=== PATIENT | male | born 1940 | race Caucasian/White ===

== ENCOUNTER → 2016-12-24 | Outpatient (CLI) | payer OTHER ==
[~2016-12-24] MED LIST: AMLO10TA2 PO; ASPI81TA28 PO; ATOR-22 PO; BUPRTAB51 PO; FLUO20CA35 PO; FLUO40CA8 PO; MULTTAB58 PO
--- NOTE | 2016-12-24 10:45 | DIAGNOSTIC IMAGING REPORT ---
CT LUNG SCREENING, LOW DOSE WITH COMPUTER-AIDED DETECTION (CAD) CLINICAL HISTORY: Smoking history. Lung cancer screening. COMPARISON STUDY: Chest CT dated 01/01/14. CT DOSE: 98.01 mGy.cm TECHNIQUE: Low-dose helical CT was acquired without intravenous contrast from lung apices to bases and reconstructed at 2.5 mm every 2 mm. CAD was utilized for this study. FINDINGS: Thyroid: Imaged portions of the thyroid gland are normal in appearance. Thoracic aorta: There is advanced atherosclerotic calcification of the thoracic aorta, which is normal in caliber and demonstrates standard 3 vessel arch anatomy. Heart: The heart is enlarged and without pericardial effusion. There are coronary artery calcifications. Lungs and pleural spaces: Evaluation of the lung parenchyma is degraded by respiratory motion artifact. Minimal secretions are present within the right mainstem bronchus. Emphysema is noted. No airspace consolidation or pleural effusion is identified. There is a 4 mm focus of pleural-based thickening in the right middle lobe along the minor fissure seen on axial image #199. This is unchanged from 2014 and of doubtful significance. No concerning pulmonary lesion is identified. Mediastinum: There is no mediastinal lymphadenopathy. Elli: Normal assessed without IV contrast. There are small calcification containing hilar nodes. Axilla: Clear. Upper abdomen: A small hiatal hernia is identified. There are small calcified hepatic and splenic granulomas. A 2.8 cm exophytic cyst is again seen arising from the right kidney. A 1.9 cm right adrenal adenoma is unchanged. Skeletal structures: The skeletal structures are osteopenic. There are no lytic or blastic osseous lesions. IMPRESSION: 1. Cardiomegaly and emphysema. 2. There is a 4 mm perifissural nodule in the right middle lobe. This is unchanged from 01/01/14 and is of doubtful significance. 3. No concerning pulmonary lesion is identified. 4. Additional changes as above. CAD FINDINGS: Nodule 1 Category: 2 Nodule 1 Status: Baseline Nodule 1 Description: Perifissural Nodule 1 Lesion ID: 1 Nodule 1 Slice Number: [id number] Nodule 1 Volume (mm3): 20 Nodule 1 Major [place] mm: 4.2 Nodule 1 Minor [place] mm: 2.0 Overall Lung RADS Category: 2 Lung RADS Management Recommendation: Lung-RADS 2: Continue annual screening in 12 months. Lung RADS Follow Up Date: 2017-12-24 Lung RADS Nodule ID: 1 Electronically signed by: Aldo Fenton M.D. 12/24/2016 10:44 AM Dictated Date/Time: 12/24/2016 10:27 AM
== END | disposition home or self-care (01) ==
LOC: C.CTS 09:53
PROVIDERS: ATTEND Internal Medicine
DX: F17.200 Nicotine dependence, unspecified, uncomplicated (principal); J43.9 Emphysema, unspecified; I51.7 Cardiomegaly

== ENCOUNTER → 2017-01-02 | Outpatient (CLI) | payer OTHER ==
[2017-01-02 12:21] LABS: BASO % 0.6 %; BASO ABS # 0.04 K/uL (0-0.2); EOS % 2.2 %; HEMATOCRIT 33.3 % (42-52); IG% 0.1 %; LYMPH % 20.6 %; LYMPH ABS # 1.39 K/uL (1.2-3.4); MEAN CELL VOLUME 66.1 fL (80-100); MEAN CORPUSCULAR HEMOGLOBIN 22.2 pg (25-34); MEAN CORPUSCULAR HGB CONC 33.6 g/dl (32-36); MEAN PLATELET VOLUME 9.5 fL (7.4-10.4); MONO % 9.3 %; NEUT % 67.2 %; PLATELET COUNT 314 K/uL (130-400); RED BLOOD COUNT 5.04 M/uL (4.7-6.1); WHITE BLOOD COUNT 6.75 K/uL (4.8-10.8)
[2017-01-02 12:42] LABS: CHOLESTEROL/HDL RATIO 2.5; FERRITIN 86.1 ng/ml (8.0-388.0)
[2017-01-02 12:45] LABS: COMPLETE YES
--- NOTE | 2017-01-07 10:18 | CODING QUERY MEDICAL NECESSITY ---
SUPPORTING DIAGNOSIS NEEDED A supporting diagnosis is required for the test/procedure performed on this patient in order for us to be reimbursed by the patient's insurance. Please provide a supporting diagnosis for the following test/procedure listed below next to the test name along with your signature. *If there is no additional diagnosis for this patient that would support the following test/procedure please document that below next to the test/procedure. Test(s)/Procedure(s) that require a supporting diagnosis: DOS 01/02 * Vitamin B12 DIAGNOSIS: * Folic Acid DIAGNOSIS: Provider Signature: Date: Thank you Laura Saleh Health Information Management Once completed, please kindly fax back to [phone] For questions please call [phone]
== END | disposition home or self-care (01) ==
LOC: C.LABBFT 08:47
PROVIDERS: ATTEND Internal Medicine
DX: R80.9 Proteinuria, unspecified (principal); D64.9 Anemia, unspecified; E78.5 Hyperlipidemia, unspecified

== ENCOUNTER → 2017-01-09 | Outpatient (CLI) | payer OTHER ==
[~2017-01-09] MED LIST changes: +OPTIRAY 320 IV PRN
[2017-01-09 15:40] LABS: BLOOD UREA NITROGEN 29 mg/dl (7-18); BUN/CREATININE RATIO 29.5 (10-20); CREATININE 0.98 mg/dl (0.60-1.40)
--- NOTE | 2017-01-09 15:59 | DIAGNOSTIC IMAGING REPORT ---
CT SCAN OF THE BRAIN COMBO CLINICAL HISTORY: Vertical strabismus. COMPARISON STUDY: CT of the brain dated 01/01/2014. TECHNIQUE: Axial CT scan of the brain is performed from the vertex to the skull base before and following the IV administration of 116 cc of Optiray 320. There is streak artifact from metallic coils in the suprasellar region. FINDINGS: Brain parenchyma: Coils are noted in the suprasellar region. Foci of right temporal and left occipital encephalomalacia are unchanged and consistent with remote insults. There is associated ex vacuo dilatation of the temporal horn of the right lateral ventricle. 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 There are age-related involutional changes noting mild subcortical and periventricular microangiopathic change. There is no hemorrhage, mass effect, or evidence of acute territorial ischemia by CT criteria. No enhancing mass lesion is identified on the postcontrast images. [place]-white matter is preserved. No extra-axial fluid collection is seen. Ventricles, sulci, cisterns: Prominent secondary to involutional change. Intracranial vasculature: There is atherosclerotic calcification of the cavernous carotid and vertebral arteries. Calvarium: There is evidence of previous right temporal craniectomy and right-sided craniotomy. No destructive calvarial lesion is seen. Sinuses and mastoids: The visualized paranasal sinuses are clear. The mastoid air cells are well pneumatized. Orbits: The bony orbits are grossly intact. There are bilateral ocular lens implants. IMPRESSION: 1. There is no hemorrhage, enhancing mass, or evidence of acute territorial ischemia by CT criteria. 2. Remote infarcts, senescent changes, and postoperative changes as above. These are similar to previous. Electronically signed by: Aldo Fenton M.D. 01/09/2017 3:58 PM Dictated Date/Time: 01/09/2017 3:52 PM
--- NOTE | 2017-01-09 16:01 | DIAGNOSTIC IMAGING REPORT ---
CT ORBITS/SELLA/TEMP COMBO CT DOSE: 1397.37 mGy.cm CLINICAL HISTORY: Vertical strabismus TECHNIQUE: Axial images through the orbits were obtained before and after administration of 116 cc of Optiray 320. COMPARISON STUDY: None. FINDINGS: Post craniotomy changes are visualized. 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 No orbital masses are visualized. The extraocular muscles appear symmetric. There are no pathologically enhancing lesions. IMPRESSION: 1. No orbital masses identified 2. Postsurgical changes of a right-sided craniotomy and aneurysm clipping. Electronically signed by: Joe Guajardo M.D. 01/09/2017 4:00 PM Dictated Date/Time: 01/09/2017 3:57 PM
== END | disposition home or self-care (01) ==
LOC: C.CTS 14:10
PROVIDERS: ATTEND Specialist
DX: H50.21 Vertical strabismus, right eye (principal); H53.2 Diplopia; Z98.890 Other specified postprocedural states

== ENCOUNTER → 2017-01-27 | Outpatient (CLI) | payer OTHER ==
[~2017-01-27] MED LIST changes: -OPTIRAY 320 IV PRN
[2017-01-27 09:32] LABS: HEMATOCRIT 32.8 % (42-52)
[2017-01-27 09:55] LABS: ESTIMATED AVERAGE GLUCOSE 126 mg/dl; HA1C FLAG Normal (Normal)
[2017-01-27 10:11] LABS: CALCULATED INSULIN SENSITIVITY 0.351; INSULIN LOG 0.8451
--- NOTE | 2017-01-31 11:16 | CODING QUERY MEDICAL NECESSITY ---
SUPPORTING DIAGNOSIS NEEDED Dr. Bhatti, A supporting diagnosis is required for the test/procedure performed on this patient in order for us to be reimbursed by the patient's insurance. Please provide a supporting diagnosis for the following test/procedure listed below next to the test name along with your signature. *If there is no additional diagnosis for this patient that would support the following test/procedure please document that below next to the test/procedure. Test(s)/Procedure(s) that require a supporting diagnosis: * 36940 GLYCATED HEMOGLOBIN DIAGNOSIS: DATE OF SERVICE: 01/27/17 Provider Signature: Date: Thank you Javier Slaughter [facility] Information Management Once completed, please kindly fax back to [phone] For questions please call [phone]
== END | disposition home or self-care (01) ==
LOC: C.LAB1850 08:23
PROVIDERS: ATTEND Internal Medicine Endocrinology, Diabetes & Metabolism
DX: I65.29 Occlusion and stenosis of unspecified carotid artery (principal); D64.9 Anemia, unspecified; E27.9 Disorder of adrenal gland, unspecified; M79.1 Myalgia; R73.03 Prediabetes

== ENCOUNTER → 2018-01-14 | Outpatient (CLI) | payer OTHER ==
[2018-01-14 12:33] LABS: BASO % 1.1 %; BASO ABS # 0.07 K/uL (0-0.2); EOS % 1.9 %; EOS ABS # 0.12 K/uL (0-0.5); HEMATOCRIT 34.4 % (42-52); HEMOGLOBIN 11.3 g/dL (14.0-18.0); IG# 0.02 K/uL (0.00-0.02); LYMPH % 19.8 %; LYMPH ABS # 1.28 K/uL (1.2-3.4); MEAN CELL VOLUME 65.6 fL (80-100); MEAN CORPUSCULAR HEMOGLOBIN 21.6 pg (25-34); MEAN CORPUSCULAR HGB CONC 32.8 g/dl (32-36); MEAN PLATELET VOLUME 8.9 fL (7.4-10.4); MONO % 7.1 %; MONO ABS # 0.46 K/uL (0.11-0.59); NEUT % 69.8 %; PLATELET COUNT 340 K/uL (130-400); RED CELL DISTRIBUTION WIDTH CV 15.1 % (11.5-14.5); RED CELL DISTRIBUTION WIDTH SD 35.5 fL (36.4-46.3); WHITE BLOOD COUNT 6.45 K/uL (4.8-10.8)
[2018-01-14 12:35] LABS: HEMOGLOBIN A1C 5.9 % (4.5-5.6)
[2018-01-14 12:47] LABS: ALBUMIN 3.9 gm/dl (3.4-5.0); ALT/SGPT 31 U/L (12-78); BLOOD UREA NITROGEN 21 mg/dl (7-18); CALCIUM 9.5 mg/dl (8.5-10.1); CARBON DIOXIDE 28 mmol/L (21-32); CHOLESTEROL 178 mg/dl (0-200); CREATININE 0.75 mg/dl (0.60-1.40); GLUCOSE 90 mg/dl (70-99); POTASSIUM 4.7 mmol/L (3.5-5.1); SODIUM 138 mmol/L (136-145)
[2018-01-14 12:52] LABS: ALKALINE PHOSPHATASE 47 U/L (45-117); AST/SGOT 24 U/L (15-37); LDL CHOLESTEROL CALCULATED 94 mg/dl; TOTAL PROTEIN 7.7 gm/dl (6.4-8.2)
== END | disposition home or self-care (01) ==
LOC: C.LABBFT 09:55
PROVIDERS: ATTEND Internal Medicine
DX: R73.03 Prediabetes (principal); D64.9 Anemia, unspecified; E78.5 Hyperlipidemia, unspecified; C61 Malignant neoplasm of prostate

== ENCOUNTER → 2018-01-20 | Outpatient (CLI) | payer OTHER ==
--- NOTE | 2018-01-20 11:29 | DIAGNOSTIC IMAGING REPORT ---
CT LUNG SCREENING, LOW DOSE WITH COMPUTER-AIDED DETECTION (CAD) CLINICAL HISTORY: 77 years-old Male with presents for a 1 year follow-up study to assess lung nodule. Patient currently smokes cigarettes with 40 pack-year history. COMPARISON STUDY: Low-dose lung screening 12/24/2016, CT chest 01/01/2014, CT abdomen and pelvis 01/01/2014 CT DOSE: 78.34 mGy.cm TECHNIQUE: Low-dose helical CT was acquired without intravenous contrast from lung apices to bases and reconstructed at 2.5 mm every 2 mm. CAD was utilized for this study. A dose lowering technique was utilized adhering to the principles of ALARA. FINDINGS: No dominant thyroid nodule identified. No definite pathologic adenopathy of the chest identified. Heart is mildly enlarged without pericardial effusion. Coronary arterial and aortic annular calcifications are noted. There is moderate atherosclerosis of the thoracic aorta. Mild tortuosity of the descending thoracic aorta without aneurysm identified. The unopacified pulmonary artery appears unremarkable. There is no pneumothorax or pleural effusion identified. Moderate upper lung zone predominant centrilobular emphysema. 4 mm perifissural lymph node adjacent to the right middle lobe is unchanged, image 165 series 4. No focal airspace consolidation or overt pulmonary edema. Central airways appear patent. 2.8 cm cystic lesion of the right upper abdomen adjacent to the interpolar right kidney suggests renal cyst, unchanged from comparison. No acute abnormality of the imaged upper abdomen identified. Thickening of the bilateral adrenal glands appear unchanged with a stable appearing 1.9 cm low attenuating right adrenal gland lesion suggesting adenoma. Soft tissues are unremarkable. Bones appear intact. No suspicious lytic or blastic bony lesions. IMPRESSION: 1. No acute intrathoracic abnormality identified. 2. No suspicious pulmonary nodules or masses identified. Unchanged 4 mm benign appearing perifissural lymph node node adjacent to the right middle lobe. 3. Emphysema. 4. Additional findings as above. CAD FINDINGS: Overall Lung RADS Category: 2 Lung RADS Management Recommendation: Continue annual lung cancer screening. Lung RADS Follow Up Date: 2019-01-20 Lung RADS Nodule ID: 1 The above report was generated using voice recognition software. It may contain grammatical, syntax or spelling errors. Electronically signed by: Figueroa Valdovinos M.D. 01/20/2018 11:28 AM Dictated Date/Time: 01/20/2018 10:23 AM
== END | disposition home or self-care (01) ==
LOC: C.CTS 09:50
PROVIDERS: ATTEND Internal Medicine
DX: Z87.891 Personal history of nicotine dependence (principal)

== ENCOUNTER 2022-02-20 08:39 | Inpatient (IN) ==
[2022-02-20] MEDS ORDERED: PANTOprazole 80 MG in DEXTROSE 5% 100 ML IV ONE (09:07)
[2022-02-20] MEDS ORDERED: SODIUM CHLORIDE 0.9% 250 ML IV PRN (09:10)
[2022-02-20 09:41] LABS: Hematocrit (blood only) 21.8 % (42-52); Hemoglobin 6.8 g/dL (14.0-18.0); Mean Corpuscular Hemoglobin 21.7 pg (25-34); Mean Corpuscular Hgb Conc 31.2 g/dL (32-36); Mean Corpuscular Volume 69.6 fL (80-100); Mean Platelet Volume 8.4 fL (7.4-10.4); Nucleated RBC # (auto) 0.02 K/uL (0-0); Nucleated RBC % (auto) 0.2 %; Platelet Count 434 K/uL (130-400); RDW Standard Deviation 55.2 fL (36.4-46.3); Red Blood Count 3.13 M/uL (4.7-6.1); White Blood Count 8.41 K/uL (4.8-10.8)
[2022-02-20 10:01] LABS: Anisocytosis Present; Basophils # (auto) 0.07 K/uL (0-0.2); Basophils % (auto) 0.8 %; Eosinophils # (auto) 0.26 K/uL (0-0.5); Eosinophils % (auto) 3.1 %; Hypochromasia Present; Immature Granulocytes # (auto) 0.02 K/uL (0.00-0.02); Immature Granulocytes % (auto) 0.2 %; Lymphocytes # (auto) 1.52 K/uL (1.2-3.4); Lymphocytes % (auto) 18.1 %; Microcytosis Present; Monocytes # (auto) 0.87 K/uL (0.11-0.59); Monocytes % (auto) 10.3 %; Neutrophils # (auto) 5.67 K/uL (1.4-6.5); Neutrophils % (auto) 67.5 %; Poikilocytosis Present; Target Cells 1+
[2022-02-20 10:02] LABS: Albumin Level 2.9 gm/dl (3.4-5.0); BUN Creatinine Ratio 51.5 (10-20); Bilirubin,Total 0.3 mg/dl (0.2-1.0); Calcium 8.2 mg/dl (8.5-10.1); Creatinine Clr Calc Pharmacy 68.7 ml/min; Est GFR (African American) 105.8 ml/min; Est GFR (Non-African American) 91.3 ml/min; Potassium 3.9 mmol/L (3.5-5.1); Total Protein 5.9 gm/dl (6.0-8.3)
[2022-02-20] MEDS ORDERED: OPTIRAY 320 100ml IV ONE (10:42)
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
[2022-02-20] MEDS ORDERED: PROPOFOL IV EMULSION 10 MG/ML 20 ML VIAL IV ONE (14:56)
[2022-02-20] MEDS ORDERED: LIDOCAINE 2% 2 ML VIAL/AMP(20MG/ML) INFIL ONE (14:56)
[2022-02-20] MEDS ORDERED: PANTOprazole 40 MG in DEXTROSE 5% 100 ML IV SCH (15:00)
--- NOTE | 2022-02-20 15:09 | Anesthesiology Consultation ---
Date of Service February 20, 2022 Assessment & Plan (1) Encounter for pre-operative examination: Chart Review Chart Review: Acceptable Risk for Surgery History Surgery Operation Date: 02/20/22 16:30 Proposed Procedures p Esophagogastroduodenoscopy Dr. Oneill - Collin Oneill MD Height/Weight Height: 5 ft 4 in Weight: 54.4 kg Allergies Allergy/AdvReac Type Severity Reaction Status Date / Time No Known Allergies Allergy Verified 01/27/22 20:24 Medications Home Medications Medication Instructions Recorded Confirmed Last Taken fluoxetine 20 mg capsule 20 mg PO QAM #90 cap 06/30/19 02/20/22 09/16/21 fluoxetine 40 mg capsule 40 mg PO QAM #90 cap 06/30/19 02/20/22 09/16/21 cholecalciferol (vitamin D3) 25 25 mcg PO QAM 11/21/20 02/20/22 09/16/21 mcg (1,000 unit) capsule atorvastatin 80 mg tablet 80 mg PO QPM #90 tab 11/29/20 02/20/22 09/17/21 aspirin 81 mg tablet,delayed 81 mg PO QAM 05/31/21 02/20/22 09/17/21 04:00 release (Adult Aspirin Regimen) amlodipine 10 mg tablet 10 mg PO QAM 09/11/21 02/20/22 09/17/21 donepezil 10 mg tablet 10 mg PO HS 01/27/22 02/20/22 Unknown Saccharomyces boulardii 250 mg 250 mg PO BID 02/20/22 02/20/22 Unknown capsule acetaminophen 500 mg tablet 1,000 mg PO Q8 02/20/22 02/20/22 Unknown apixaban 5 mg tablet 5 mg PO Q12H 02/20/22 02/20/22 Unknown bisacodyl 10 mg rectal suppository 10 mg FL DAILY 02/20/22 02/20/22 Unknown cyanocobalamin (vitamin B-12) 1,000 mcg PO DAILY 02/20/22 02/20/22 Unknown 1,000 mcg tablet docusate sodium 100 mg capsule 100 mg PO BID 02/20/22 02/20/22 Unknown losartan 50 mg tablet 50 mg PO QAM 02/20/22 02/20/22 Unknown melatonin 3 mg tablet 6 mg PO HS 02/20/22 02/20/22 Unknown multivitamin with folic acid 400 tab PO DAILY 02/20/22 Unknown mcg tablet pantoprazole 40 mg tablet,delayed 40 mg PO QAM 02/20/22 02/20/22 Unknown release quetiapine 25 mg tablet 25 mg PO HS 02/20/22 02/20/22 Unknown sennosides 8.6 mg tablet (senna) 17.2 mg PO BID PRN 02/20/22 02/20/22 Unknown sennosides 8.6 mg-docusate sodium See Rx Instructions .ROUTE .COMPLEX 02/20/22 02/20/22 Unknown 50 mg tablet (Senna-S) Past Medical History Medical History (Updated 02/20/22 @ 15:09 by Javier Leonardo MD) Anemia Anxiety and depression Brain aneurysm hx COPD (chronic obstructive pulmonary disease) Current smoker Diverticulosis GERD (gastroesophageal reflux disease) occ OTC antacid History of prostate cancer 2006 -- treated surgically Hyperlipidemia Hypertension Internal hemorrhoids Lung nodule per - pcp was monitoring, no changes, benign and no longer monitoring Multiple fractures of ribs of left side PAD (peripheral artery disease) follows with Dr. Matute Pelvic fracture PFO (patent foramen ovale) ?? 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 Prediabetes Thalassemia trait, alpha Vitamin B12 deficiency Past Family History Family History Mother Stroke Father Stroke Unknown Prostate cancer Brother Prostate cancer Other No family history of adverse response to anesthesia Denies family history of Ovarian cancer Breast cancer Colorectal cancer Past Surgical History Surgical History H/O cerebral aneurysm repair History of cataract surgery History of colonoscopy History of inguinal hernia repair History of prostate biopsy History of prostatectomy History of right-sided carotid endarterectomy Social History Smoking Status: Former smoker tobacco type: cigarettes Smoking cigarettes per day: LESS THAN 10 Do You Dip or Chew Tobacco: No Hx Alcohol Use: No Alcohol type: hard liquor alcohol intake frequency: 0-2 drinks per day Hx Substance Use: No substance use type: does not use Physical Exam Vital Signs Last Vital Signs Temp 37 C 02/20/22 14:40 Pulse 66 02/20/22 14:44 Resp 16 02/20/22 14:40 BP 181/66 H 02/20/22 14:40 Pulse Ox 96 02/20/22 14:40 Testing Laboratory Results 02/20/22 09:17 02/20/22 09:17 Blood Type A Positive 02/20/22 09:17 Antibody Screen NEGATIVE 02/20/22 09:17 Electrocardiogram Date: 02/20/22 Findings: + NSR @ (73 (PAC's))
--- NOTE | 2022-02-20 16:26 | GI REPORT ---
Patient Name: Ángela Sales Procedure Date: 02/20/2022 3:08 PM Date of : 1940 Admit Type: Inpatient Age: 81 Gender: Male Attending MD: Collin Oneill MD Procedure: Small bowel enteroscopy Providers: Collin Oneill MD Referring MD: Jeramie Egan, Nino Palm Md Indications: Iron deficiency anemia secondary to chronic blood loss Medicines: Monitored Anesthesia Care Complications: No immediate complications. Estimated blood loss: None. Estimated Blood Loss: Estimated blood loss: none. Procedure: Pre-Anesthesia Assessment: - Prior Anticoagulants: The patient has taken Eliquis (apixaban), last dose was 1 day prior to procedure. The scope was introduced through the mouth, and advanced to the fourth part of duodenum. The upper GI endoscopy was accomplished without difficulty. The patient tolerated the procedure well. Findings: The examined esophagus was normal. The entire examined stomach was normal. The duodenal bulb, second portion of the duodenum, third portion of the duodenum and fourth portion of the duodenum were normal. Impression: - Normal esophagus. - Normal stomach. - Normal duodenal bulb, second portion of the duodenum, third portion of the duodenum and fourth portion of the duodenum. - No specimens collected. Recommendation: - [facility]. - Advance diet as tolerated today. -can d/c protonix drip -trend H/H, transfuse prn, supportive care -if develops signs of overt GI bleeding (hematochezia, hematemesis, melena), may consider further endoscopic evaluation. Collin Oneill MD 02/20/2022 4:25:55 PM This report has been signed electronically. Note Initiated On: 02/20/2022 3:08 PM Number of Addenda: 0 I attest to the content of the Intraoperative Record and orders documented therein, exceptions below {[id number]}
--- NOTE | 2022-02-20 16:34 | Anesthesiology Progress Note ---
Date of Service February 20, 2022 Anesthesia Post Procedure Vital Signs Vital Signs: Temp Pulse Pulse Resp BP BP Pulse Ox 02/20/22 16:23 60 16 124/53 L 100 02/20/22 15:01 36.4 C L 68 18 162/72 H 96 02/20/22 14:44 66 02/20/22 14:40 37 C 74 16 181/66 H 96 02/20/22 14:00 36.7 C 73 21 145/61 H 96 02/20/22 13:15 72 23 147/77 H 97 02/20/22 13:00 36.7 C 68 21 148/67 H 97 02/20/22 12:45 69 22 142/61 H 96 02/20/22 12:30 36.7 C 72 23 134/57 L 96 02/20/22 12:29 67 24 139/57 L 96 02/20/22 12:15 36.6 C 71 21 142/68 H 96 02/20/22 12:14 71 22 142/66 H 97 02/20/22 12:00 78 24 96 02/20/22 11:59 77 22 137/77 94 02/20/22 11:58 36.6 C 69 16 137/77 96 02/20/22 11:00 66 19 96 02/20/22 10:45 73 21 96 02/20/22 10:30 69 20 02/20/22 10:20 66 21 02/20/22 10:10 66 18 02/20/22 10:00 65 20 02/20/22 09:50 66 19 02/20/22 09:40 69 23 02/20/22 09:30 68 21 02/20/22 09:20 73 24 02/20/22 09:10 63 21 02/20/22 09:00 64 22 02/20/22 08:53 37.0 C 68 12 133/60 97 02/20/22 08:51 66 20 99 Transfer of Care Handoff Completed per policy Notes Mental Status: alert / awake / arousable Patient Amnestic to Procedure: Yes Nausea / Vomiting: adequately controlled Pain: adequately controlled Airway Patency, RR, SpO2: stable & adequate BP & HR: stable & adequate Hydration State: stable & adequate Anesthetic Complications: no major complications apparent
[2022-02-20 17:37] LABS: Basophils # (auto) 0.05 K/uL (0-0.2); Basophils % (auto) 0.6 %; Eosinophils # (auto) 0.19 K/uL (0-0.5); Eosinophils % (auto) 2.4 %; Hematocrit (blood only) 26.2 % (42-52); Hemoglobin 8.2 g/dL (14.0-18.0); Immature Granulocytes # (auto) 0.01 K/uL (0.00-0.02); Immature Granulocytes % (auto) 0.1 %; Lymphocytes # (auto) 1.36 K/uL (1.2-3.4); Lymphocytes % (auto) 17.2 %; Mean Corpuscular Hemoglobin 22.8 pg (25-34); Mean Corpuscular Hgb Conc 31.3 g/dL (32-36); Mean Platelet Volume 8.7 fL (7.4-10.4); Monocytes # (auto) 0.77 K/uL (0.11-0.59); Monocytes % (auto) 9.7 %; Neutrophils # (auto) 5.53 K/uL (1.4-6.5); Platelet Count 452 K/uL (130-400); RDW Coefficient of Variation 22.9 % (11.5-14.5); RDW Standard Deviation 60.4 fL (36.4-46.3); Red Blood Count 3.59 M/uL (4.7-6.1); White Blood Count 7.91 K/uL (4.8-10.8)
[2022-02-20 18:18] LABS: Anisocytosis Present; Hypochromasia Present; Poikilocytosis Present; Polychromasia 1+
[2022-02-20] MEDS: DONEPEZIL HCL 10 MG TAB PO SCH (20:12)
[2022-02-20] MEDS: ATORVASTATIN 40 MG TAB PO SCH (20:13)
[2022-02-20] MEDS: traZODone HCL 50 MG TAB PO PRN (22:28)
[2022-02-20] MEDS: ACETAMINOPHEN 325 MG TAB PO PRN (22:28)
[2022-02-21 01:11] LABS: Hematocrit (blood only) 25.8 % (42-52); Hemoglobin 8.2 g/dL (14.0-18.0)
--- NOTE | 2022-02-21 06:14 | Communication Note ---
Date of Service: February 21, 2022 notified of 6 beat run vtach. asymptomatic. adding mag to am labs
--- NOTE | 2022-02-21 06:26 | Electrocardiogram Report ---
Test Reason : Blood Pressure : / mmHG Vent. Rate : 073 BPM Atrial Rate : 073 BPM P-R Int : 166 ms QRS Dur : 094 ms QT Int : 428 ms P-R-T Axes : 074 054 070 degrees QTc Int : 471 ms Sinus rhythm with Premature atrial complexes Otherwise normal ECG When compared with ECG of 27-JAN-2022 19:56, Premature atrial complexes are now Present Confirmed by Kaden Ibarra ([id number]) on 02/21/2022 6:26:13 AM Referred By: [facility] Confirmed By:Kaden Ibarra
--- NOTE | 2022-02-21 06:39 | Ultrasound Report ---
LEFT LOWER EXTREMITY VENOUS DOPPLER HISTORY: Acute pain and swelling of the left lower extremity hx L isolated tibial vein thrombosis COMPARISON STUDY: None. FINDINGS: Occlusive thrombus is noted within one of the duplicated posterior tibial and peroneal vein s, likely acute. There is otherwise normal compressibility, flow, and augmentation within the left lo wer extremity deep venous structures. IMPRESSION: Left lower extremity DVT. ACT 112: Negative or not required by law. Electronically signed by: Lion Valdovinos M.D. 02/21/2022 6:37 AM
[2022-02-21 06:41] LABS: Basophils # (auto) 0.04 K/uL (0-0.2); Basophils % (auto) 0.6 %; Eosinophils # (auto) 0.24 K/uL (0-0.5); Eosinophils % (auto) 3.4 %; Hematocrit (blood only) 25.8 % (42-52); Hemoglobin 8.1 g/dL (14.0-18.0); Immature Granulocytes # (auto) 0.02 K/uL (0.00-0.02); Immature Granulocytes % (auto) 0.3 %; Lymphocytes # (auto) 1.69 K/uL (1.2-3.4); Lymphocytes % (auto) 23.9 %; Mean Corpuscular Hemoglobin 22.5 pg (25-34); Mean Corpuscular Hgb Conc 31.4 g/dL (32-36); Mean Corpuscular Volume 71.7 fL (80-100); Mean Platelet Volume 8.5 fL (7.4-10.4); Monocytes # (auto) 0.65 K/uL (0.11-0.59); Monocytes % (auto) 9.2 %; Neutrophils # (auto) 4.43 K/uL (1.4-6.5); Neutrophils % (auto) 62.6 %; Platelet Count 426 K/uL (130-400); RDW Coefficient of Variation 22.5 % (11.5-14.5); RDW Standard Deviation 59.4 fL (36.4-46.3); White Blood Count 7.07 K/uL (4.8-10.8)
[2022-02-21 07:02] LABS: Albumin Level 2.9 gm/dl (3.4-5.0); BUN Creatinine Ratio 36.5 (10-20); Bilirubin,Total 0.4 mg/dl (0.2-1.0); Calcium 8.6 mg/dl (8.5-10.1); Creatinine Clr Calc Pharmacy 71.4 ml/min; Est GFR (African American) 107.9 ml/min; Est GFR (Non-African American) 93.1 ml/min; Magnesium 1.9 mg/dl (1.7-2.4); Potassium 3.8 mmol/L (3.5-5.1); Total Protein 5.9 gm/dl (6.0-8.3)
[2022-02-21 07:04] LABS: Anisocytosis Present; Hypochromasia Present; Microcytosis Present; Poikilocytosis Present; Target Cells 1+
[2022-02-21] MEDS: amLODIPine BESYLATE 5 MG TAB PO SCH (08:58)
[2022-02-21] MEDS: CYANOCOBALAMIN (B-12) 500 MCG TABLET PO SCH (08:58)
[2022-02-21] MEDS: FLUoxetine HCL 20 MG CAP PO SCH (08:58)
[2022-02-21] MEDS: CHOLECALCIFEROL 1,000 UNITS 25 MCG TAB PO SCH (08:58)
[2022-02-21] MEDS ORDERED: FLUoxetine HCL 20 MG CAP PO SCH (09:00)
--- NOTE | 2022-02-21 10:27 | Gastroenterology Progress Note ---
Date of Service February 21, 2022 Assessment & Plan (1) Anemia: Plan: -Continue to monitor H/H and for further signs of GI bleeding. -Can maintain home dose of Pantoprazole 40 mg daily. Admission and Anticipated Discharge Date Admission Date: February 20, 2022 Supervising Physician Co-Signing Physician Notes I personally evaluated the patient and agree with the findings as documented by Beth Clark, CLARISA Exam: Constitutional: WD/WN, vitals as above General: EOM intact bilaterally Neck: normal visual inspection Respiratory: normal respiratory effort, lungs clear to auscultation Cardiovascular: RRR, no murmur, no edema Gastrointestinal: abdomennormal to inspection, nondistended, soft, nontender, no hepatosplenomegaly Musculoskeletal: no cyanosis, head normal to inspection Skin: no rashes, warm and dry Neurologic: moves all extremities Psychiatric: A and O x3, euthymic affect Hgb is stable, can advance diet as tolerated. if develops signs of overt Gi bleeding please notify GI team. Subjective Patient is an 81 yo male with anemia. He underwent a EGD/small bowel enteroscopy on 02/20/22 that was unremarkable. H/H today is 8.1/25.8. No overt GI bleeding. Last colonoscopy 09/17/21 without significant abnormalities. Patient denies complaints, but is partially asleep during my evaluation. Review of Systems Gastrointestinal: no blood in stools and no melena Physical Exam Constitutional: well developed Respiratory: normal respiratory effort Gastrointestinal (Abdomen): Inspection/Auscultation: abdomen normal to inspection Percussion/Palpation: abdomen soft; abdomen nontender Results & Data Results & Data ([facility]) Vital Signs (Past 12 Hours) Vital Signs Temp Pulse Pulse Resp BP Pulse Ox 02/21/22 09:37 66 02/21/22 07:46 36.8 C 70 18 150/66 H 96 02/21/22 03:50 37.1 C 74 16 129/57 L 96 02/20/22 23:14 71 02/20/22 22:45 37.7 C H 75 20 156/67 H 96 PG Care Time/CCT Total # of Minutes Spent Total Time Spent with Patient: Total time spent is greater than 50% in coordination of care (as documented) at patient's floor/unit and/or counseling patient: Coding Level of Care Code 24753 Subseq Hosp Care Lvl 2 Diagnoses Anemia D64.9
[2022-02-21] MEDS: PANTOprazole 40 MG TAB PO SCH (11:54)
[2022-02-21] MEDS ORDERED: Heparin IV Adult Wt-Based Low-Dose *NO* Bolus Protocol IV SCH (12:00)
[2022-02-21] MEDS ORDERED: HEPARIN SODIUM/DEXTROSE 25,000 UNITS/500 ML BAG IV SCH (12:15)
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
[2022-02-21 13:30] LABS: INR 1.3 (0.9-1.1); Partial Thromboplastin Ratio 0.8; Partial Thromboplastin Time 22.5 Seconds (21.0-31.0); Prothrombin Time 13.8 Seconds (9.0-12.0)
[2022-02-21] MEDS: ACETAMINOPHEN 325 MG TAB PO PRN (20:04)
[2022-02-21] MEDS: DONEPEZIL HCL 10 MG TAB PO SCH (20:04)
[2022-02-21] MEDS: ATORVASTATIN 40 MG TAB PO SCH (20:04)
[2022-02-21 20:54] LABS: Hemoglobin 8.6 g/dL (14.0-18.0)
[2022-02-21 21:11] LABS: Partial Thromboplastin Time 28.3 Seconds (21.0-31.0)
[2022-02-21] MEDS ORDERED: HEPARIN SOD (PORCINE) 1000 UNIT/ML IV ONE (21:31)
[2022-02-21] MEDS: traZODone HCL 50 MG TAB PO PRN (21:47)
[2022-02-22 04:00] LABS: Basophils # (auto) 0.04 K/uL (0-0.2); Basophils % (auto) 0.6 %; Eosinophils # (auto) 0.28 K/uL (0-0.5); Eosinophils % (auto) 4.1 %; Hematocrit (blood only) 27.2 % (42-52); Hemoglobin 8.6 g/dL (14.0-18.0); Immature Granulocytes # (auto) 0.02 K/uL (0.00-0.02); Immature Granulocytes % (auto) 0.3 %; Lymphocytes # (auto) 1.69 K/uL (1.2-3.4); Mean Corpuscular Hemoglobin 22.8 pg (25-34); Mean Corpuscular Hgb Conc 31.6 g/dL (32-36); Mean Corpuscular Volume 72.1 fL (80-100); Mean Platelet Volume 8.3 fL (7.4-10.4); Monocytes # (auto) 0.67 K/uL (0.11-0.59); Monocytes % (auto) 9.9 %; Neutrophils # (auto) 4.07 K/uL (1.4-6.5); Neutrophils % (auto) 60.1 %; Nucleated RBC # (auto) 0.02 K/uL (0-0); Nucleated RBC % (auto) 0.3 %; Platelet Count 397 K/uL (130-400); RDW Coefficient of Variation 23.1 % (11.5-14.5); RDW Standard Deviation 60.3 fL (36.4-46.3); Red Blood Count 3.77 M/uL (4.7-6.1); White Blood Count 6.77 K/uL (4.8-10.8)
[2022-02-22 04:23] LABS: Anisocytosis Present; Hypochromasia Present; Poikilocytosis Present; Polychromasia 1+; Target Cells 1+
[2022-02-22 04:26] LABS: Partial Thromboplastin Ratio 2.2
[2022-02-22 04:29] LABS: BUN Creatinine Ratio 35.7 (10-20); Calcium 8.5 mg/dl (8.5-10.1); Creatinine Clr Calc Pharmacy 64.3 ml/min; Est GFR (African American) 103.3 ml/min; Est GFR (Non-African American) 89.1 ml/min
[2022-02-22 04:34] LABS: Partial Thromboplastin Time 59.5 Seconds (21.0-31.0)
[2022-02-22] MEDS: CHOLECALCIFEROL 1,000 UNITS 25 MCG TAB PO SCH (07:51)
[2022-02-22] MEDS: FLUoxetine HCL 20 MG CAP PO SCH (07:51)
[2022-02-22] MEDS: PANTOprazole 40 MG TAB PO SCH (07:51)
[2022-02-22] MEDS: CYANOCOBALAMIN (B-12) 500 MCG TABLET PO SCH (07:52)
[2022-02-22] MEDS: amLODIPine BESYLATE 5 MG TAB PO SCH (09:28)
--- NOTE | 2022-02-22 09:28 | Communication Note ---
Date of Service: February 22, 2022 Of note, CT scan shows concern for chronic dilatation of pancreatic duct. Per radiology, while this may be related to chronic pancreatitis, he should consider further GI evaluation. Our office will arrange for EUS to be performed as an outpatient with [facility] once patient is medical stable. As for H/H, it's noted to be 8.6/27.2 today. Stools on 02/21/22 did not indicate and overt signs of bleeding. If patient develops obvious GI bleeding, please re- consult GI.
[2022-02-22 09:33] LABS: Hematocrit (blood only) 28.4 % (42-52); Hemoglobin 8.7 g/dL (14.0-18.0)
[2022-02-22] MEDS: ENOXAPARIN 80 MG/0.8 ML SYR SQ SCH (12:20)
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
[2022-02-22 20:57] LABS: Hematocrit (blood only) 27.9 % (42-52); Hemoglobin 8.7 g/dL (14.0-18.0)
[2022-02-22] MEDS: DONEPEZIL HCL 10 MG TAB PO SCH (21:35)
[2022-02-22] MEDS: ATORVASTATIN 40 MG TAB PO SCH (21:36)
[2022-02-22] MEDS: traZODone HCL 50 MG TAB PO PRN (22:40)
[2022-02-23 06:34] LABS: Partial Thromboplastin Ratio 0.9; Partial Thromboplastin Time 23.4 Seconds (21.0-31.0)
[2022-02-23] MEDS: FLUoxetine HCL 20 MG CAP PO SCH (07:30)
[2022-02-23] MEDS: PANTOprazole 40 MG TAB PO SCH (07:31)
[2022-02-23] MEDS: CHOLECALCIFEROL 1,000 UNITS 25 MCG TAB PO SCH (07:31)
[2022-02-23] MEDS: CYANOCOBALAMIN (B-12) 500 MCG TABLET PO SCH (07:31)
[2022-02-23] MEDS: amLODIPine BESYLATE 5 MG TAB PO SCH (07:31)
[2022-02-23] MEDS: ENOXAPARIN 80 MG/0.8 ML SYR SQ SCH (10:24)
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
== END 2022-02-23 13:50 | disposition home health service (06) | DRG 378 ==
LOC: ED 08:39 → SUATTDRO 13:08 → 2N 13:08

== ENCOUNTER 2024-05-03 12:48 | Inpatient (IN) ==
--- NOTE | 2024-05-03 13:01 | ED Triage Note ---
Date of Service May 03, 2024 Provider in Triage Author: Surekha Acharya History of Present Illness This patient was briefly evaluated while in triage. An abbreviated physical exam was performed. This patient is a 83-year-old Male who presents to the ED for evaluation approximately 2.5 hours after a fall. Pt. states he slipped and fell. He did not strike his head. Landed on the right hip. Pt. unable to bare weight. Does have history of bilateral pelvic fracture several years ago and was seen here. Physical Exam VITALS: Vitals are noted on the nurse's note and reviewed by myself. GENERAL: This is an 83 year old male, in no acute distress, nondiaphoretic, well-developed well-nourished. SKIN: No obvious rashes, edema, erythema HEAD: Normocephalic atraumatic. EYES: Conjunctivae without injection, sclerae without icterus. NECK: No JVD. LUNGS: No retractions or accessory muscle use. MUSCULOSKELETAL: Presents in a wheelchair. NEURO: Patient was alert and oriented to person place and time. No focal neurological deficits. Initial orders for labs and / or imaging were placed and patient was placed in the waiting area until a bed is available. Please see further documentation for the full ED course.
[2024-05-03] MEDS: ACETAMINOPHEN 325 MG TAB ONE (13:27)
[2024-05-03] MEDS: ONDANSETRON INJ 2 MG/ML 2 ML VIAL IV STA (13:33)
[2024-05-03] MEDS: MoRPHine SULFATE 4 MG/ML 1 ML CARP\\VIAL IV STA ×2 (13:35→21:48)
[2024-05-03 14:05] LABS: Basophils # (auto) 0.04 K/uL (0.00-0.20); Basophils % (auto) 0.4 %; Eosinophils # (auto) 0.08 K/uL (0.00-0.50); Eosinophils % (auto) 0.8 %; Hematocrit (blood only) 29.3 % (42.0-52.0); Hemoglobin 8.9 g/dl (14.0-18.0); Immature Granulocytes # (auto) 0.07 K/uL (0.01-0.20); Immature Granulocytes % (auto) 0.7 %; Lymphocytes # (auto) 0.73 K/uL (1.20-3.40); Lymphocytes % (auto) 6.9 %; Mean Corpuscular Hemoglobin 17.9 pg (25.0-34.0); Mean Corpuscular Hgb Conc 30.4 g/dL (32.0-36.0); Monocytes # (auto) 0.74 K/uL (0.11-0.59); Neutrophils # (auto) 8.94 K/uL (1.40-6.50); Neutrophils % (auto) 84.2 %; RDW Coefficient of Variation 18.5 % (11.5-14.5); RDW Standard Deviation 37.2 fL (36.4-46.3); Red Blood Count 4.97 M/uL (4.70-6.10)
[2024-05-03 14:07] LABS: Albumin Globulin Ratio 1.1 (0.9-2); Albumin Level 3.9 gm/dl (3.4-5.0); BUN Creatinine Ratio 28.7 (10-20); Bilirubin,Total 0.5 mg/dl (0.2-1.0); Calcium 9.4 mg/dl (8.6-10.3); Creatinine Clr Calc Pharmacy 48.8 ml/min; Est GFR (African American) 87.2 ml/min; Est GFR (Non-African American) 75.2 ml/min; Globulin 3.4 gm/dl (2.5-4.0); Potassium 3.8 mmol/L (3.5-5.1); Total Protein 7.3 gm/dl (6.0-8.3)
--- NOTE | 2024-05-03 14:11 | XRay Report ---
XR hip RT 2V w pelvis CLINICAL HISTORY: pain, fall COMPARISON: CT of the abdomen and pelvis February 20, 2022. FINDINGS: There is an acute displaced subcapital right femoral neck fracture. Fracture is displaced 2 cm. No additional fractures within the pelvis or hips are present. There are surgical clips within the pelvis. Proximal left femur is intact. IMPRESSION: Acute displaced subcapital right femoral neck fracture. ACT 112: Negative or not required by law. Electronically signed by: Remberto Alfonso M.D. 05/03/2024 2:10 PM
[2024-05-03 14:28] LABS: Microcytosis Present; Platelet Count 379 K/uL (130-400); Poikilocytosis Present; Polychromasia 1+; Target Cells 1+
[2024-05-03 14:33] LABS: INR 1.3 (0.9-1.1); Partial Thromboplastin Ratio 0.8; Partial Thromboplastin Time 22 Seconds (21-31); Prothrombin Time 13.8 Seconds (9.0-12.0)
--- NOTE | 2024-05-03 14:33 | Emergency Department Note ---
History of Present Illness General Chief complaint: Fall Stated complaint: FALL, HIP PAIN ON RIGHT SIDE Time Seen by Provider: 05/03/24 14:11 History of Present Illness Maximum Pain Intensity: 10 This is an 83-year-old male that presents to the emergency department via private vehicle with complaints of "right hip plain". He is here today accompanied by daughter as well as . History obtained from patient, and daughter at bedside. Patient notes earlier today around 10:30 AM he slipped and fell injuring the right hip. Daughter at bedside notes that this was a mechanical fall. No other areas of pain beyond the right hip. He did not strike the head or lose consciousness. No headache. No chest pain or shortness of breath. No abdominal pain. No back pain. No preceding illness. No fevers. He cannot bear weight to the right leg secondary to right hip pain. Current pain 08/19. Injury occurred around 10:30 AM. No anticoagulant use. He felt fine prior to the fall. He does have a history of previous pelvic fracture. Home Medications Medication Instructions Recorded Confirmed Type fluoxetine 20 mg capsule 20 mg PO QAM #90 caps 06/30/19 05/03/24 History fluoxetine 40 mg capsule 40 mg PO QAM #90 caps 06/30/19 05/03/24 History aspirin 81 mg tablet,delayed 81 mg PO QAM 05/31/21 05/03/24 History release (Adult Aspirin Regimen) donepezil 10 mg tablet 10 mg PO HS 01/27/22 05/03/24 History bupropion HCl 300 mg 24 hr tablet, 300 mg PO QAM #30 tabs 06/14/22 05/03/24 Rx extended release cholecalciferol (vitamin D3) 25 25 mcg PO DAILY 05/21/23 05/03/24 History mcg (1,000 unit) capsule valsartan 80 mg tablet 80 mg PO BID #180 tabs 09/18/23 05/03/24 Rx amlodipine 10 mg tablet 10 mg PO QAM #90 tabs 01/07/24 05/03/24 Rx atorvastatin 80 mg tablet 80 mg PO QPM #90 tabs 03/01/24 05/03/24 Rx mecobalamin (vitamin B12) 500 mcg 500 mcg PO UD 03/26/24 05/03/24 History chewable tablet pantoprazole 40 mg tablet,delayed 40 mg PO DAILY 05/03/24 05/03/24 History release Allergies Allergy/AdvReac Type Severity Reaction Status Date / Time No Known Allergies Allergy Verified 03/26/24 16:43 Past Med/Surg History Problem List (Updated 05/03/24 @ 23:04 by Parag Quiros PA-C) Closed fracture of right hip (Acute) Closed right hip fracture Adrenal nodule (Acute) Anemia (Acute) Carotid artery stenosis (Acute) Depression (Acute) Gastroesophageal reflux disease (Acute) Hyperlipidemia (Acute) Hypertension (Acute) Lung nodule (Acute) Prediabetes (Acute) Prostate cancer (Acute ~02/2023) Thalassemia trait, alpha (Acute) Vitamin B12 deficiency (Acute) Peripheral arterial disease Multiple fractures of ribs of left side (Acute) Tubular adenoma Encounter for pre-operative examination History of colon polyps COPD (chronic obstructive pulmonary disease) Gastric erosions UGIB (upper gastrointestinal bleed) (Acute) Chronic anticoagulation (Acute) ABLA (acute blood loss anemia) (Acute) Vitamin D deficiency Abnormality of pancreatic duct Medical History DVT (deep venous thrombosis) Pelvic fracture Acute GI bleeding Current smoker PAD (peripheral artery disease) follows with Dr. Matute PFO (patent foramen ovale) ?? 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 Anemia Lung nodule per - pcp was monitoring, no changes, benign and no longer monitoring GERD (gastroesophageal reflux disease) occ OTC antacid History of prostate cancer 2006 -- treated surgically Anxiety and depression Brain aneurysm hx Internal hemorrhoids Diverticulosis Surgical History H/O cerebral aneurysm repair History of right-sided carotid endarterectomy History of colonoscopy History of prostate biopsy History of prostatectomy History of cataract surgery History of inguinal hernia repair Family History Mother Stroke Father Stroke Unknown Prostate cancer Brother Prostate cancer Other No family history of adverse response to anesthesia Denies family history of Ovarian cancer Breast cancer Colorectal cancer Social History Smoking Status: Former smoker Tobacco Type: Cigarettes Age Started Using Tobacco: 28; packs per day: 7; Cigarettes Per Day: 1/2 pack; Second Hand Exposure: No; Do You Dip or Chew Tobacco: No; Hx Alcohol Use: Yes Alcohol type: hard liquor Hx Substance Use: No Preferred Language: Latvian Communication Ability: Effective Communication Ability Comment: speaks and understands macedonian very well. Hearing Ability: Normal Overlock Waistline Joiner Required: No Beliefs That Will Affect Care: None marital status: Current Living Situation: Spouse and Family Current Living Situation Comment: Lives with at their Daughter and Son-in-laws home. current occupational status: retired Feels Safe at Home: Yes Diet: regular Diet Comment: healthy caffeine: Yes Dental Care, Regularly: Yes Physical Activity Frequency: Daily Seatbelt Use: always Sunscreen Use: No Assistive Devices: Glasses, Hospital Bed, Oxygen - Continuous and Walker Review of Systems A total of 10 systems reviewed and were otherwise negative Physical Exam Vital Signs Vital Signs - 24 hr 05/03/24 12:59 05/03/24 13:43 Temperature 36.5 C Temperature Source Temporal Artery Scan Pulse Rate 78 Pulse Rate [Apical] 77 Pulse Rhythm [Apical] Regular Pulse Strength [Apical] Normal Respiratory Rate 20 18 Respiratory Effort / Characteristics Non-Labored Spontaneous Non-Labored Spontaneous Respiratory Depth Normal Normal Respiratory Pattern Regular Apnea Blood Pressure 138/36 L Blood Pressure [Left Arm] 152/62 H Blood Pressure Mean 70 Blood Pressure Mean [Left Arm] 92 Pulse Oximetry 98 93 Oxygen Delivery Method Room Air Nasal Cannula Oxygen Flow Rate 2 Sepsis Recent Fever Within 48 Hours No Sepsis New/Unexplained Change in Mental Status No Sepsis Action Taken by Nursing No Action Required VITAL SIGNS - Vital signs and nursing notes were reviewed. Stable, afebrile. GENERAL -83-year-old male appearing his stated age who is in no acute distress. Communicates well with provider and answers questions appropriately. SKIN - Without rashes. No meningeal or petechial rash. No open wounds. No evidence of open hip fracture. HEAD - NC/AT. No dougherty signs or raccoon's eyes. No lacerations. No contusions. EYES - Sclera anicteric. No hyphema. No subconjunctival hemorrhage. EARS - No deformities of external structures noted on gross examination bilaterally. NOSE - Midline and without cyanosis. No epistaxis or purulent drainage noted. Septum midline without deviation or septal hematoma noted. MOUTH/OROPHARYNX - Without perioral cyanosis. No blood from the oropharynx. NECK - Neck with FROM. No C-spine tenderness and no nuchal rigidity. LUNGS - Chest wall symmetric without accessory muscle use, intercostals retractions, or central cyanosis. Normal vesicular breath sounds CTA B/L. No wheezes, rales, or rhonchi appreciated. CARDIAC - RRR EXTREMITIES - No clubbing or peripheral cyanosis. R sided hip TTP. +5/5 strength noted in UE/LE bilaterally. Dorsalis pedis pulses within normal limits bilaterally. Decreased range of motion of the right leg secondary to right hip pain. NEUROLOGIC - RLE appropriately warm and well perfused. GCS 15. No deficits on exam. Patient moves all extremities well and purposefully. PSYCH -alert, oriented and pleasant on exam Course Administered Medications Sodium Chloride (Nss) 1,000 mls @ 75 mls/hr IV .[id number] STA Stop: 05/04/24 08:06 Last Admin: 05/03/24 19:04 Dose: 75 mls/hr Documented By: GRICELDA Miscellaneous (Remove Lidoderm Patch) 1 each N/A DAILY@2100 CASIE Stop: 06/02/24 20:59 Last Admin: 05/04/24 00:06 Dose: Not Given Documented By: Admin: 05/03/24 21:10 Dose: Not Given Documented By: ALVARADO Discontinued Medications Acetaminophen (Acetaminophen 325 Mg Tab) Confirm Administered Dose 650 mg .ROUTE .STK-MED ONE Stop: 05/03/24 13:26 Last Admin: 05/03/24 13:27 Dose: Not Given Documented By: DEONNA Acetaminophen 650 mg/ EMPTY (BAG) 65 mls @ 260 mls/hr IV NOW STA Stop: 05/03/24 14:41 Last Infusion: 05/03/24 20:56 Dose: Infused Documented By: Admin: 05/03/24 15:21 Dose: 260 mls/hr Documented By: THEA Lidocaine (Lidocaine 5% 1 Patch) 1 patch TD NOW STA Stop: 05/03/24 17:51 Last Admin: 05/03/24 18:12 Dose: 1 patch Documented By: THEA Morphine Sulfate (Morphine Sulfate 4 Mg/Ml 1 Ml Carp\\Vial) 4 mg IV NOW STA Stop: 05/03/24 13:28 Last Admin: 05/03/24 13:35 Dose: 4 mg Documented By: BRAD Morphine Sulfate (Morphine Sulfate 4 Mg/Ml 1 Ml Carp\\Vial) 4 mg IV NOW STA Stop: 05/03/24 21:40 Last Admin: 05/03/24 21:48 Dose: 4 mg Documented By: ALVARADO Ondansetron HCl (Ondansetron Inj 2 Mg/Ml 2 Ml Vial) 4 mg IV NOW STA Stop: 05/03/24 13:28 Last Admin: 05/03/24 13:33 Dose: 4 mg Documented By: BRAD Medical Decision Making Laboratory Data 05/03/24 13:20 05/03/24 13:20 Lab Results 05/03/24 05/03/24 Range/Units 13:20 15:15 WBC 10.60 (4.8-10.8) K/ul RBC 4.97 (4.70-6.10) M/uL Hgb 8.9 L (14.0-18.0) g/dl Hct 29.3 L (42.0-52.0) % MCV 59.0 L (80.0-100.0) fL MCH 17.9 L (25.0-34.0) pg MCHC 30.4 L (32.0-36.0) g/dL RDW Std Deviation 37.2 (36.4-46.3) fL RDW Coeff of Sundeep 18.5 H (11.5-14.5) % Plt Count 379 (130-400) K/uL MPV 9.0 L (9.4-12.4) fL Immature Gran % (Auto) 0.7 % Neut % (Auto) 84.2 % Lymph % (Auto) 6.9 % [place] % (Auto) 7.0 % Eos % (Auto) 0.8 % Baso % (Auto) 0.4 % Neut # (Auto) 8.94 H (1.40-6.50) K/uL Lymph # (Auto) 0.73 L (1.20-3.40) K/uL [place] # (Auto) 0.74 H (0.11-0.59) K/uL Eos # (Auto) 0.08 (0.00-0.50) K/uL Baso # (Auto) 0.04 (0.00-0.20) K/uL Immature Gran # (Auto) 0.07 (0.01-0.20) K/uL Polychromasia 1+ Poikilocytosis Present Microcytosis Present Target Cells 1+ PT 13.8 H (9.0-12.0) Seconds INR 1.3 H (0.9-1.1) APTT 22 (21-31) Seconds PTT Ratio 0.8 Sodium 140 (136-145) mmol/L Potassium 3.8 (3.5-5.1) mmol/L Chloride 106 (98-107) mmol/L Carbon Dioxide 25 (21-32) mmol/L Anion Gap 9 (3-11) BUN 27 H (6-23) mg/dl Creatinine 0.94 (0.6-1.4) mg/dl Est Cr Clr Drug Dosing 48.8 ml/min Est GFR ( Amer) 87.2 ml/min Est GFR (Non-Af Amer) 75.2 ml/min BUN/Creatinine Ratio 28.7 H (10-20) Glucose 159 H (70-99(Fasting)) mg/dl Calcium 9.4 (8.6-10.3) mg/dl Total Bilirubin 0.5 (0.2-1.0) mg/dl AST 22 (13-39) U/L ALT 20 (7-52) U/L Alkaline Phosphatase 60 (34-104) U/L Total Protein 7.3 (6.0-8.3) gm/dl Albumin 3.9 (3.4-5.0) gm/dl Globulin 3.4 (2.5-4.0) gm/dl Albumin/Globulin Ratio 1.1 (0.9-2) Urine Color Yellow Urine Appearance Clear (Clear) Urine pH 6.0 (4.5-7.5) Ur Specific [place] 1.017 (1.000-1.030) Urine Protein 2+ H (Negative) Urine Glucose (UA) Negative (Negative) Urine Ketones Negative (Negative) Urine Blood Trace H (Negative) Urine Nitrite Negative (Negative) Urine Bilirubin Negative (Negative) Urine Urobilinogen Negative (Negative) Ur Leukocyte Esterase Negative (Negative) Urine WBC (Auto) 0-5 (0-5) /hpf Urine RBC (Auto) 0-2 (0-2) /hpf U Hyaline Cast (Auto) 0-2 (0-2) /lpf U Epithel Cells (Auto) 0-2 (0-2) /hpf Urine Bacteria (Auto) None Seen (None Seen) Imaging Data Radiologist's Impression: Hip/Pelvis X-Ray 05/03/24 13:01 XR hip RT 2V w pelvis CLINICAL HISTORY: pain, fall COMPARISON: CT of the abdomen and pelvis February 20, 2022. FINDINGS: There is an acute displaced subcapital right femoral neck fracture. Fracture is displaced 2 cm. No additional fractures within the pelvis or hips are present. There are surgical clips within the pelvis. Proximal left femur is intact. IMPRESSION: Acute displaced subcapital right femoral neck fracture. ACT 112: Negative or not required by law. Electronically signed by: Remberto Alfonso M.D. 05/03/2024 2:10 PM Chest X-Ray 05/03/24 14:21 SINGLE VIEW CHEST CLINICAL HISTORY: Fall. Hypoxia. Hip fracture. FINDINGS: 2 AP, portable, supine chest radiographs are compared to chest x-ray and chest CT dated 01/27/2022. The heart is enlarged noting atherosclerotic calcification of the thoracic area. The pulmonary vasculature is noncongested. Emphysema and chronic interstitial thickening is similar to previous. There is bibasilar scarring/atelectasis. No airspace consolidation or large pleural effusion is identified. No pneumothorax is seen. The skeletal structures are osteopenic. There are chronic/healed bilateral rib fractures. There is calcific tendinopathy of the left shoulder. IMPRESSION: Cardiomegaly and emphysema with no acute cardiopulmonary abnormality identified. ACT 112: Negative or not required by law. Electronically signed by: Aldo Fenton M.D. 05/03/2024 2:46 PM MDM Narrative Patient was seen and evaluated as above in room D03a. Review was performed of triage nursing notes and vital signs. A thorough history and physical examination was performed. Patient presents to us today status post mechanical fall with right hip pain. History obtained from patient, and daughter at bedside. No syncopal event. No headache or neck pain. Patient denies striking the head or loss of consciousness. There are no signs of head trauma or injury on my exam. No chest pain or abdominal pain. No back pain. Patient notes pain only to the right hip. He is not currently anticoagulated. On examination he is tender to palpation of the right lateral hip. No other signs of trauma or injury on exam beyond the right hip. Options of care were discussed with patient as well as family at bedside. Patient does present during a period of elevated volume and acuity in the emergency department and was seen in triage prior to my evaluation of the patient. Laboratory studies reveal no leukocytosis. There is anemia noted with hemoglobin at 8.9. This is similar to previous. INR elevated at 1.3. BUN elevated at 27. Glucose 159. Urinalysis reveals 2+ protein, trace blood, no evidence of UTI. An x-ray of the patient's pelvis and right hip was already performed revealing right hip fracture per my interpretation, specifically acute displaced subcapital right femoral neck fracture per radiologist with formal report as above. When I first assessed the patient I did place him on pulse oximetry monitoring and he was found to have an O2 sat of 85%. Patient appeared to be on supplemental O2 nasal cannula from the oxygen tank at the bed and I transitioned him to the oxygen in the room. Oxygen rebounded nicely with 2 to 3 L of oxygen. The patient has no respiratory complaints. No preceding chest pain or shortness of breath. Patient denies any chest pain or shortness of breath. I did add a chest x-ray per my interpretation no acute process. Formal radiology report is as above revealing cardiomegaly and emphysema with no acute cardiopulmonary abnormality identified. I will note the patient did receive IV morphine prior to my evaluation. The mild hypoxia may be secondary to the IV narcotic however we will closely monitor for any developing respiratory concerns. I will note that ED triage/entry O2 sat was within normal limits. No choking or coughing. No signs of aspiration at this time. No signs of rib fracture or chest trauma. EKG reveals normal sinus rhythm at a rate of 70 bpm. QTc 467. QRS 94. No ST elevation. At this time the patient would benefit from hospitalization. I do believe that further evaluation and management is needed in the inpatient setting. I discussed this with the hospitalist, Dr. Mtz Please refer to further documentation regarding his stay. During his time here in the ED I did order the patient IV maintenance fluids, as well as IV acetaminophen. I did consider additional IV analgesia and patient/ at bedside did ask that I also speak to the patient's daughter and they did call her via phone as she had left bedside at that point. In reviewing options with patient's daughter, preference was to proceed with lidocaine patch to the right hip which was ordered. I presented this option to the patient and at bedside and we will proceed. Case was discussed with the attending physician. GCS: 15 In the evaluation and treatment of this patient, the following differential diagnoses were considered: Hip Fracture, Hip Dislocation, Greater Trochanteric Bursitis, Musculoskeletal Pain, Lumbar Radiculopathy. Although the mild hypoxia as noted above may have been postmedication administration that was identified on evaluation, will further evaluate with a troponin to complement the patient's chest x-ray and EKG. Troponin returned negative and within normal range at 13.8. Please refer to further documentation regarding the patient's stay. Impression & Plan Closed fracture of right hip Discharge Plan Visit Data Chief Complaint: Fall Stated Complaint: FALL, HIP PAIN ON RIGHT SIDE ED Provider: Julia Dee ED Midlevel Provider: Parag Quirso Discharge Problem: Closed fracture of right hip Patient Disposition: Admitted As Inpatient Condition: Good Discharge Instructions Interventions: ED Discharge Assessment Last Done: 05/03/24 20:37
--- NOTE | 2024-05-03 14:47 | Emergency Department Note ---
ED Visit Note I was consulted by the Advanced Practice Provider. I personally made/approved the management plan and take responsibility for the patient management. I performed a substantive portion of the visit. This includes the aspects of: -History/Physical -MDM .
--- NOTE | 2024-05-03 14:48 | XRay Report ---
SINGLE VIEW CHEST CLINICAL HISTORY: Fall. Hypoxia. Hip fracture. FINDINGS: 2 AP, portable, supine chest radiographs are compared to chest x-ray and chest CT dated 01/09. The heart is enlarged noting atherosclerotic calcification of the thoracic area. The pulmonar y vasculature is noncongested. Emphysema and chronic interstitial thickening is similar to previous. There is bibasilar scarring/atelectasis. No airspace consolidation or large pleural effusion is ident ified. No pneumothorax is seen. The skeletal structures are osteopenic. There are chronic/healed bila teral rib fractures. There is calcific tendinopathy of the left shoulder. IMPRESSION: Cardiomegaly and emphysema with no acute cardiopulmonary abnormality identified. ACT 112: Negative or not required by law. Electronically signed by: Aldo Fenton M.D. 05/03/2024 2:46 PM
[2024-05-03] MEDS: ACETAMINOPHEN 10MG/ML Custom 650 MG in EMPTY BAG 0 ML IV STA (15:21)
--- NOTE | 2024-05-03 15:26 | History & Physical Report ---
Date of Service May 03, 2024 Assessment & Plan (1) Closed right hip fracture: Plan: Patient was brought to the hospital following a mechanical slip and fall. Found to have an acute displaced subcapital right femoral neck fracture Orthopedics have been consulted Control pain with IV Tylenol Keep n.p.o. SCDs for DVT prophylaxis given his history of GI bleed (2) Carotid artery stenosis: Plan: Status post carotid endarterectomy (3) Depression: Plan: Stable, continue home medications (4) Hypertension: Plan: Blood pressure stable for now continue home medications when reconciliation is done (5) Prediabetes: Plan: Last hemoglobin A1c 7 Follows closely with PCP (6) Prostate cancer: (7) Thalassemia trait, alpha: (8) Peripheral arterial disease: (9) DVT (deep venous thrombosis): Plan: History of 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 Plan Admit to [facility] Awaiting evaluation by orthopedics History of Present Illness Chief Complaint: Mechanical fall, hip fracture Primary Care Provider: Raffi Stout MD This is an 84-year-old male with a history of carotid artery stenosis, hypertension, prediabetes, small PFO, prostate cancer, for thalassemia trait, peripheral artery disease, COPD, DVT, who was admitted to the hospital today following a mechanical fall. Some of the history was obtained from the ED physician and also the patient's and daughter. According to family members, patient slipped and fell earlier today around 10 in the morning and fell on his right hip. He did not strike his head and he did not lose any consciousness. However he found out that he was unable to bear weight due to pain so decision was made to bring him to the hospital. Hand emergency department a hip and pelvic x-ray was done which showed evidence of acute displaced subcapital right femoral neck fracture. Orthopedics be consulted patient be admitted to the hospital further management. Allergies Allergy/AdvReac Type Severity Reaction Status Date / Time No Known Allergies Allergy Verified 03/26/24 16:43 Home Medications Medication Instructions Recorded Confirmed Type fluoxetine 20 mg capsule 20 mg PO QAM #90 caps 06/30/19 05/03/24 History fluoxetine 40 mg capsule 40 mg PO QAM #90 caps 06/30/19 05/03/24 History aspirin 81 mg tablet,delayed 81 mg PO QAM 05/31/21 05/03/24 History release (Adult Aspirin Regimen) donepezil 10 mg tablet 10 mg PO HS 01/27/22 05/03/24 History bupropion HCl 300 mg 24 hr tablet, 300 mg PO QAM #30 tabs 06/14/22 05/03/24 Rx extended release cholecalciferol (vitamin D3) 25 25 mcg PO DAILY 05/21/23 05/03/24 History mcg (1,000 unit) capsule valsartan 80 mg tablet 80 mg PO BID #180 tabs 09/18/23 05/03/24 Rx amlodipine 10 mg tablet 10 mg PO QAM #90 tabs 01/07/24 05/03/24 Rx atorvastatin 80 mg tablet 80 mg PO QPM #90 tabs 03/01/24 05/03/24 Rx mecobalamin (vitamin B12) 500 mcg 500 mcg PO UD 03/26/24 05/03/24 History chewable tablet pantoprazole 40 mg tablet,delayed 40 mg PO DAILY 05/03/24 05/03/24 History release Past Med/Surg History Problem List (Updated 05/03/24 @ 15:22 by Rose Smith MD) Closed right hip fracture Adrenal nodule (Acute) Anemia (Acute) Carotid artery stenosis (Acute) Depression (Acute) Gastroesophageal reflux disease (Acute) Hyperlipidemia (Acute) Hypertension (Acute) Lung nodule (Acute) Prediabetes (Acute) Prostate cancer (Acute ~02/2023) Thalassemia trait, alpha (Acute) Vitamin B12 deficiency (Acute) Peripheral arterial disease Multiple fractures of ribs of left side (Acute) Tubular adenoma Encounter for pre-operative examination History of colon polyps COPD (chronic obstructive pulmonary disease) Gastric erosions UGIB (upper gastrointestinal bleed) (Acute) Chronic anticoagulation (Acute) ABLA (acute blood loss anemia) (Acute) Vitamin D deficiency Abnormality of pancreatic duct Medical History DVT (deep venous thrombosis) Pelvic fracture Acute GI bleeding Current smoker PAD (peripheral artery disease) follows with Dr. Matute PFO (patent foramen ovale) ?? per , "very small hole in his heart but doesn't cause any problems" -- does not follow with corporate analyst Anemia Lung nodule per - pcp was monitoring, no changes, benign and no longer monitoring GERD (gastroesophageal reflux disease) occ OTC antacid History of prostate cancer 2006 -- treated surgically Anxiety and depression Brain aneurysm hx Internal hemorrhoids Diverticulosis Surgical History H/O cerebral aneurysm repair History of right-sided carotid endarterectomy History of colonoscopy History of prostate biopsy History of prostatectomy History of cataract surgery History of inguinal hernia repair Family History Mother Stroke Father Stroke Unknown Prostate cancer Brother Prostate cancer Other No family history of adverse response to anesthesia Denies family history of Ovarian cancer Breast cancer Colorectal cancer Social History Smoking Status: Never smoker Tobacco Type: Cigarettes Age Started Using Tobacco: 28; packs per day: 7; Cigarettes Per Day: LESS THAN 10; Second Hand Exposure: No; Do You Dip or Chew Tobacco: No; Hx Alcohol Use: No Hx Substance Use: No Preferred Language: Barbadian Communication Ability: Effective Communication Ability Comment: speaks and understands welsh very well. Hearing Ability: Normal Form Maker Plaster Required: No Beliefs That Will Affect Care: None marital status: Current Living Situation: Spouse Current Living Situation Comment: lives with , at [facility] current occupational status: retired Feels Safe at Home: Yes Diet: regular Diet Comment: healthy caffeine: Yes Dental Care, Regularly: Yes Physical Activity Frequency: Daily Seatbelt Use: always Sunscreen Use: No Review of Systems Review of Systems: All systems reviewed are negative, apart from the ones contained in the history. Physical Exam Physical Exam: The patient is awake, alert and oriented 3, well developed and well nourished, normocephalic and atraumatic, lying in bed and in no acute distress. HEENT--PERRL, EOMI, mucous membranes and oropharynx mildly dry Neck--supple. No JVD. No bruits. Thyroid normal, trachea midline, no adenopathy. Heart--normal S1 and S2. No murmurs, rubs or gallops. Lungs--clear bilaterally, no respiratory distress, no accessory muscle use. Abdomen--normal bowel sounds and soft. Extremities--no cyanosis or clubbing. No edema.Right hip movement limited by pain Dermatologic--normal skin turgor, normal color, no abnormal lymph nodes, no rash. Neurologic--cranial nerves II through XII grossly intact. Rheumatologic--normal range of motion. Psychiatric--normal affect. Results & Data Results & Data Vital Signs (Past 12 Hours) Vital Signs Temp Pulse Pulse Resp BP BP Pulse Ox 05/03/24 13:43 77 18 152/62 H 93 05/03/24 12:59 97.7 F 78 20 138/36 L 98 O2 Del Method O2 Flow Rate 05/03/24 13:43 Nasal Cannula 2 05/03/24 12:59 Room Air Code Status & VTE Plan VTE Prophylaxis Plan VTE Prophylaxis will be ordered: Yes PG Care Time/CCT Total # of Minutes Spent Total Time Spent with Patient: Total time spent is greater than 50% in coordination of care (as documented) at patient's floor/unit and/or counseling patient: Coding Level of Care Code 06599 INT INP/OBS CARE 3/75MIN Diagnoses Closed right hip fracture S72.001A Carotid artery stenosis I65.29 Depression F32.9 Primary hypertension I10 Hypertension type: primary hypertension Prediabetes R73.03 Prostate cancer C61 Thalassemia trait, alpha D56.3 Peripheral arterial disease I73.9 DVT (deep venous thrombosis) I82.409 Time Spent (min) 75 (4) Hypertension Hypertension type: primary hypertension Qualified Code(s): I10 - Essential (primary) hypertension
[2024-05-03 15:40] LABS: Appearance Urine Clear (Clear); Bacteria Urine Automated None Seen (None Seen); Bilirubin Urine Negative (Negative); Blood Urine Trace (Negative); Cast Urine Automated 0-2 /lpf (0-2); Color Urine Yellow; Epithelial Cell Urine Auto 0-2 /hpf (0-2); Glucose Urine UA Negative (Negative); Ketones Urine Negative (Negative); Leukocyte Esterase Urine Negative (Negative); Nitrite Urine Negative (Negative); Protein Urine 2+ (Negative); RBC Urine Automated 0-2 /hpf (0-2); Specific Gravity Urine 1.017 (1.000-1.030); Urobilinogen Urine Negative (Negative); WBC Urine Automated 0-5 /hpf (0-5)
[2024-05-03] MEDS: LIDOCAINE 5% 1 PATCH TD STA (18:12)
--- NOTE | 2024-05-03 18:42 | Electrocardiogram Report ---
Test Reason : Blood Pressure : / mmHG Vent. Rate : 078 BPM Atrial Rate : 078 BPM P-R Int : 170 ms QRS Dur : 094 ms QT Int : 410 ms P-R-T Axes : 073 041 085 degrees QTc Int : 467 ms Normal sinus rhythm Nonspecific ST and T wave abnormality Abnormal ECG When compared with ECG of 20-FEB-2022 10:16, Premature atrial complexes are no longer Present Nonspecific ST and T wave abnormality now present Confirmed by Jose G Smith ([id number]) on 05/03/2024 6:42:05 PM Referred By: REFERRED SELF Confirmed By:Jose G Smith
[2024-05-03] MEDS: SODIUM CHLORIDE 0.9% 1,000 ML IV STA (19:04)
[2024-05-03] MEDS ORDERED: ACETAMINOPHEN 325 MG TAB PO PRN (19:05)
[2024-05-03] MEDS ORDERED: ONDANSETRON INJ 2 MG/ML 2 ML VIAL IV PRN (19:05)
[2024-05-04] MEDS: ACETAMINOPHEN 1,000 MG/100 ML VIAL IV PRN (00:59)
[2024-05-04] MEDS: fentaNYL citrate PF 100 MCG/2 ML VIAL IV ONE (03:26)
[2024-05-04] MEDS: fentaNYL citrate PF 100 MCG/2 ML VIAL IV STA (04:43)
--- NOTE | 2024-05-04 07:11 | XRay Report ---
XR chest 1V portable CLINICAL HISTORY: worsening SOB COMPARISON STUDY: Chest CT January 27, 2022. Chest radiograph May 03, 2024. FINDINGS: There is no thorax. Slight blunting of the left costophrenic angle is noted. Mild left basi lar opacity is well. There is pulmonary vascular congestion. Cardiomediastinal silhouette is stable. Incidental note is made of multiple old left-sided rib fractures. IMPRESSION: 1. Interval development of mild left basilar opacity which could reflect pneumonia or atelectasis. 2. Suspected trace left pleural effusion. 3. Pulmonary vascular congestion. ACT 112: Negative or not required by law. Electronically signed by: Remberto Alfonso M.D. 05/04/2024 7:10 AM
[2024-05-04 07:22] LABS: Hematocrit (blood only) 29.4 % (42.0-52.0); Hemoglobin 8.9 g/dl (14.0-18.0); Mean Corpuscular Hemoglobin 17.6 pg (25.0-34.0); Mean Corpuscular Hgb Conc 30.3 g/dL (32.0-36.0); Mean Platelet Volume 9.3 fL (9.4-12.4); Platelet Count 387 K/uL (130-400); RDW Coefficient of Variation 18.6 % (11.5-14.5); RDW Standard Deviation 36.2 fL (36.4-46.3); Red Blood Count 5.07 M/uL (4.70-6.10); White Blood Count 13.31 K/ul (4.8-10.8)
[2024-05-04 07:41] LABS: BUN Creatinine Ratio 32.8 (10-20); Creatinine Clr Calc Pharmacy 71.6 ml/min; Est GFR (African American) 105.7 ml/min; Est GFR (Non-African American) 91.2 ml/min; Potassium 3.5 mmol/L (3.5-5.1)
[2024-05-04] MEDS: MoRPHine SULFATE 2 MG/ML CARP IV STA ×2 (07:57→11:09)
--- NOTE | 2024-05-04 13:00 | Orthopedic Consultation ---
Date of Service May 04, 2024 Assessment & Plan (1) Closed fracture of right hip: He is npo and would like to have his hip fixed today. His family has requested Dr. Keith. We will plan on cemented right hip hemiarthroplasty. Procedure was explained to him and his family, including risks, benefits, and alternatives. Consent obtained. We will likely use eliquis post op for dvt prophylaxis. History of Present Illness Reason for Consultation: . Requesting Physician: . Attending Physician: Rose Smith MD . 83 year old patient who slipped and fell yesterday morning and sustained a right hip fracture. Denies any pain prior to this fall. Occasionally did use a cane prior to the fall. No other orthopedic complaints. He is npo today. His family has requested Dr. Keith for further orthopedic care. He has a h/o left lower extremity DVT and h/o GI bleed. Normally takes an aspirin daily. Allergies Allergy/AdvReac Type Severity Reaction Status Date / Time No Known Allergies Allergy Verified 03/26/24 16:43 Home Medications Medication Instructions Recorded Confirmed Type fluoxetine 20 mg capsule 20 mg PO QAM #90 caps 06/30/19 05/03/24 History fluoxetine 40 mg capsule 40 mg PO QAM #90 caps 06/30/19 05/03/24 History aspirin 81 mg tablet,delayed 81 mg PO QAM 05/31/21 05/03/24 History release (Adult Aspirin Regimen) donepezil 10 mg tablet 10 mg PO HS 01/27/22 05/03/24 History bupropion HCl 300 mg 24 hr tablet, 300 mg PO QAM #30 tabs 06/14/22 05/03/24 Rx extended release cholecalciferol (vitamin D3) 25 25 mcg PO DAILY 05/21/23 05/03/24 History mcg (1,000 unit) capsule valsartan 80 mg tablet 80 mg PO BID #180 tabs 09/18/23 05/03/24 Rx amlodipine 10 mg tablet 10 mg PO QAM #90 tabs 01/07/24 05/03/24 Rx atorvastatin 80 mg tablet 80 mg PO QPM #90 tabs 03/01/24 05/03/24 Rx mecobalamin (vitamin B12) 500 mcg 500 mcg PO UD 03/26/24 05/03/24 History chewable tablet pantoprazole 40 mg tablet,delayed 40 mg PO DAILY 05/03/24 05/03/24 History release Past Med/Surg History Problem List Closed fracture of right hip (Acute) Closed right hip fracture Adrenal nodule (Acute) Anemia (Acute) Carotid artery stenosis (Acute) Depression (Acute) Gastroesophageal reflux disease (Acute) Hyperlipidemia (Acute) Hypertension (Acute) Lung nodule (Acute) Prediabetes (Acute) Prostate cancer (Acute ~02/2023) Thalassemia trait, alpha (Acute) Vitamin B12 deficiency (Acute) Peripheral arterial disease Multiple fractures of ribs of left side (Acute) Tubular adenoma Encounter for pre-operative examination History of colon polyps COPD (chronic obstructive pulmonary disease) Gastric erosions UGIB (upper gastrointestinal bleed) (Acute) Chronic anticoagulation (Acute) ABLA (acute blood loss anemia) (Acute) Vitamin D deficiency Abnormality of pancreatic duct Medical History DVT (deep venous thrombosis) Pelvic fracture Acute GI bleeding Current smoker PAD (peripheral artery disease) follows with Dr. Matute PFO (patent foramen ovale) ?? per , "very small hole in his heart but doesn't cause any problems" -- does not follow with ux interaction designer Anemia Lung nodule per - pcp was monitoring, no changes, benign and no longer monitoring GERD (gastroesophageal reflux disease) occ OTC antacid History of prostate cancer 2006 -- treated surgically Anxiety and depression Brain aneurysm hx Internal hemorrhoids Diverticulosis Surgical History H/O cerebral aneurysm repair History of right-sided carotid endarterectomy History of colonoscopy History of prostate biopsy History of prostatectomy History of cataract surgery History of inguinal hernia repair Family History Mother Stroke Father Stroke Unknown Prostate cancer Brother Prostate cancer Other No family history of adverse response to anesthesia Denies family history of Ovarian cancer Breast cancer Colorectal cancer Social History Smoking Status: Former smoker Tobacco Type: Cigarettes Age Started Using Tobacco: 28; packs per day: 7; Cigarettes Per Day: 1/2 pack; Second Hand Exposure: No; Do You Dip or Chew Tobacco: No; Hx Alcohol Use: Yes Alcohol type: hard liquor Hx Substance Use: No Preferred Language: Singaporean Communication Ability: Effective Communication Ability Comment: speaks and understands kuwaiti very well. Hearing Ability: Normal Managing Consultant Required: No Beliefs That Will Affect Care: None marital status: Current Living Situation: Spouse and Family Current Living Situation Comment: Lives with at their Daughter and Son-in-laws home. current occupational status: retired Feels Safe at Home: Yes Diet: regular Diet Comment: healthy caffeine: Yes Dental Care, Regularly: Yes Physical Activity Frequency: Daily Seatbelt Use: always Sunscreen Use: No Assistive Devices: Glasses, Hospital Bed, Oxygen - Continuous and Walker Review of Systems All systems reviewed & are unremarkable except as noted in HPI & below. Physical Exam .alert, NAD Right leg: shortened and externally rotated. Painful motion of the right leg. Able to dorsiflex and plantarflex. NVI. Skin intact around the lateral hip. Results & Data Results & Data Laboratory Results . Diagnostic Findings . xrays show a displaced right femoral neck fracture PG Care Time/CCT Total # of Minutes Spent Total Time Spent with Patient: Total time spent is greater than 50% in coordination of care (as documented) at patient's floor/unit and/or counseling patient: Coding Level of Care Code 82874 IN/OBS CONSULT LVL 4,60M (57 - DECISION FOR SURGERY) Diagnoses Closed fracture of right hip S72.001A
--- NOTE | 2024-05-04 13:01 | History & Physical Bridge Note ---
Date of Service May 04, 2024 History & Physical Bridge Note I have examined the patient, reviewed the History & Physical and in the interval since the performance of the History & Physical I have noted the following changes of clinical significance: no changes noted
--- NOTE | 2024-05-04 13:37 | Anesthesiology Consultation ---
Date of Service May 04, 2024 Assessment & Plan (1) Encounter for pre-operative examination: Chart Review Chart Review: Acceptable Risk for Surgery and Patient NOT seen in Pre Admission Testing Consults Requested none History Surgery Operation Date: 05/04/24 08:05 Proposed Procedures p Right Cemented Bipolar Hip - Donell Keith MD Height/Weight Height: 5 ft 3 in Weight: 57.1 kg Allergies Allergy/AdvReac Type Severity Reaction Status Date / Time No Known Allergies Allergy Verified 03/26/24 16:43 Medications Home Medications Medication Instructions Recorded Confirmed Last Taken fluoxetine 20 mg capsule 20 mg PO QAM #90 caps 06/30/19 05/03/24 09/16/21 fluoxetine 40 mg capsule 40 mg PO QAM #90 caps 06/30/19 05/03/24 09/16/21 aspirin 81 mg tablet,delayed 81 mg PO QAM 05/31/21 05/03/24 09/17/21 04:00 release (Adult Aspirin Regimen) donepezil 10 mg tablet 10 mg PO HS 01/27/22 05/03/24 Unknown bupropion HCl 300 mg 24 hr tablet, 300 mg PO QAM #30 tabs 06/14/22 05/03/24 Unknown extended release cholecalciferol (vitamin D3) 25 25 mcg PO DAILY 05/21/23 05/03/24 Unknown mcg (1,000 unit) capsule valsartan 80 mg tablet 80 mg PO BID #180 tabs 09/18/23 05/03/24 Unknown amlodipine 10 mg tablet 10 mg PO QAM #90 tabs 01/07/24 05/03/24 Unknown atorvastatin 80 mg tablet 80 mg PO QPM #90 tabs 03/01/24 05/03/24 Unknown mecobalamin (vitamin B12) 500 mcg 500 mcg PO UD 03/26/24 05/03/24 Unknown chewable tablet pantoprazole 40 mg tablet,delayed 40 mg PO DAILY 05/03/24 05/03/24 Unknown release Active Medications Generic Name Dose Route Start Last Admin Trade Name Freq PRN Reason Stop Dose Admin Acetaminophen 1,000 mg in 100 mls @ 400 mls/hr 05/03/24 19:05 05/04/24 09:27 Ofirmev IV 05/06/24 19:04 Infused Q8H PRN Infusion Pain NPO Date Last Intake of Fluids: 05/03/24 Time Last Intake of Fluids: 23:59 Date Last Intake of Solids: 05/03/24 Time Last Intake of Solids: 23:59 Past Medical History Medical History DVT (deep venous thrombosis) Pelvic fracture Acute GI bleeding Current smoker PAD (peripheral artery disease) follows with Dr. Matute PFO (patent foramen ovale) ?? per , "very small hole in his heart but doesn't cause any problems" -- does not follow with security system sales consultant Anemia Lung nodule per - pcp was monitoring, no changes, benign and no longer monitoring GERD (gastroesophageal reflux disease) occ OTC antacid History of prostate cancer 2006 -- treated surgically Anxiety and depression Brain aneurysm hx Internal hemorrhoids Diverticulosis Past Family History Family History Mother Stroke Father Stroke Unknown Prostate cancer Brother Prostate cancer Other No family history of adverse response to anesthesia Denies family history of Ovarian cancer Breast cancer Colorectal cancer Past Surgical History Surgical History H/O cerebral aneurysm repair History of right-sided carotid endarterectomy History of colonoscopy History of prostate biopsy History of prostatectomy History of cataract surgery History of inguinal hernia repair Social History Smoking Status: Former smoker tobacco type: cigarettes Smoking cigarettes per day: 1/2 pack Do You Dip or Chew Tobacco: No Hx Alcohol Use: Yes Alcohol type: hard liquor alcohol intake frequency: 0-2 drinks per day Alcohol Intake Frequency Comment: 1 drink of golden per day. Hx Substance Use: No substance use type: does not use Physical Exam Vital Signs Last Vital Signs Temp 36.9 C 05/04/24 11:30 Pulse 96 H 05/04/24 11:30 Resp 18 05/04/24 11:30 BP 150/66 H 05/04/24 11:30 Pulse Ox 91 05/04/24 11:30 O2 Del Method Oxymask 05/04/24 11:30 O2 Flow Rate 3 05/04/24 11:30 Testing Laboratory Results 05/04/24 06:38 05/04/24 06:38 PT 13.8 Seconds (9.0-12.0) H 05/03/24 13:20 INR 1.3 (0.9-1.1) H 05/03/24 13:20 APTT 22 Seconds (21-31) 05/03/24 13:20 Urine Color Yellow 05/03/24 15:15 Urine Appearance Clear (Clear) 05/03/24 15:15 Urine pH 6.0 (4.5-7.5) 05/03/24 15:15 Ur Specific [place] 1.017 (1.000-1.030) 05/03/24 15:15 Urine Protein 2+ (Negative) H 05/03/24 15:15 Urine Glucose (UA) Negative (Negative) 05/03/24 15:15 Urine Ketones Negative (Negative) 05/03/24 15:15 Urine Nitrite Negative (Negative) 05/03/24 15:15 Ur Leukocyte Esterase Negative (Negative) 05/03/24 15:15 Urine WBC (Auto) 0-5 /hpf (0-5) 05/03/24 15:15 Urine RBC (Auto) 0-2 /hpf (0-2) 05/03/24 15:15 U Hyaline Cast (Auto) 0-2 /lpf (0-2) 05/03/24 15:15 U Epithel Cells (Auto) 0-2 /hpf (0-2) 05/03/24 15:15 Urine Bacteria (Auto) None Seen (None Seen) 05/03/24 15:15 Electrocardiogram Date: 05/03/24 DICTATED BY: Jose G Smith MD Test Reason : Blood Pressure : / mmHG Vent. Rate : 078 BPM Atrial Rate : 078 BPM P-R Int : 170 ms QRS Dur : 094 ms QT Int : 410 ms P-R-T Axes : 073 041 085 degrees QTc Int : 467 ms Normal sinus rhythm Nonspecific ST and T wave abnormality Abnormal ECG When compared with ECG of 20-FEB-2022 10:16, Premature atrial complexes are no longer Present Nonspecific ST and T wave abnormality now present Confirmed by Jose G Smith ([id number]) on 05/03/2024 6:42:05 PM Chest X-Ray Date: 05/03/24 XR chest 1V portable CLINICAL HISTORY: worsening SOB COMPARISON STUDY: Chest CT January 27, 2022. Chest radiograph May 03, 2024. FINDINGS: There is no thorax. Slight blunting of the left costophrenic angle is noted. Mild left basilar opacity is well. There is pulmonary vascular congestion. Cardiomediastinal silhouette is stable. Incidental note is made of multiple old left-sided rib fractures. IMPRESSION: 1. Interval development of mild left basilar opacity which could reflect pneumonia or atelectasis. 2. Suspected trace left pleural effusion. 3. Pulmonary vascular congestion.
--- NOTE | 2024-05-04 13:45 | Hospitalist Progress Note ---
Date of Service May 04, 2024 Assessment & Plan (1) Closed right hip fracture: Plan: Patient was brought to the hospital following a mechanical slip and fall. Found to have an acute displaced subcapital right femoral neck fracture Orthopedics have been consulted Plan is for right arthroplasty today Appreciate orthopedics consult. Continue pain management, will minimize the use of morphine and opiates (2) Carotid artery stenosis: Plan: Status post carotid endarterectomy (3) Depression: Plan: Stable, continue home medications (4) Hypertension: Plan: Blood pressure stable for now continue home medications when reconciliation is done (5) DVT (deep venous thrombosis): Plan: History of 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 (6) Dementia: Plan: On donepezil at home (7) Prediabetes: Plan: Last hemoglobin A1c 7 Follows closely with PCP (8) Prostate cancer: (9) Thalassemia trait, alpha: (10) Peripheral arterial disease: Plan Continue hospitalization Full code Admission and Anticipated Discharge Date Admission Date: May 03, 2024 Subjective Patient seen and examined, yelling and crying out in pain, by the bedside plans for surgery today Review of Systems Review of Systems: All systems reviewed are negative, apart from the ones contained in the history. Physical Exam Physical Exam: The patient is awake, alert and oriented 3, well developed and well nourished, normocephalic and atraumatic, lying in bed and in no acute distress. HEENT--PERRL, EOMI, mucous membranes and oropharynx mildly dry Neck--supple. No JVD. No bruits. Thyroid normal, trachea midline, no adenopathy. Heart--normal S1 and S2. No murmurs, rubs or gallops. Lungs--clear bilaterally, no respiratory distress, no accessory muscle use. Abdomen--normal bowel sounds and soft. Extremities--no cyanosis or clubbing. No edema.Right hip movement limited by pain Dermatologic--normal skin turgor, normal color, no abnormal lymph nodes, no rash. Neurologic--cranial nerves II through XII grossly intact. Rheumatologic--normal range of motion. Psychiatric--normal affect. Results & Data Results & Data Vital Signs (Past 12 Hours) Vital Signs Temp Pulse Pulse Resp BP Pulse Ox O2 Del Method 05/04/24 11:30 98.4 F 96 H 18 150/66 H 91 Oxymask 05/04/24 08:13 92 H 05/04/24 07:50 Oxymask 05/04/24 07:34 98.2 F 97 H 20 154/78 H 97 Oxymask 05/04/24 05:05 88 16 94 Oxymask 05/04/24 02:35 98.2 F 96 H 20 166/62 H 91 Oxymask O2 Flow Rate 05/04/24 11:30 3 05/04/24 08:13 05/04/24 07:50 5 05/04/24 07:34 3 05/04/24 05:05 4 05/04/24 02:35 4 PG Care Time/CCT Total # of Minutes Spent Total Time Spent with Patient: Total time spent is greater than 50% in coordination of care (as documented) at patient's floor/unit and/or counseling patient: Coding Level of Care Code 81302 SUB INP/OBS CARE 2/35MIN Diagnoses Closed right hip fracture S72.001A Carotid artery stenosis I65.29 Depression F32.9 Primary hypertension I10 Hypertension type: primary hypertension DVT (deep venous thrombosis) I82.409 Dementia F03.90 Prediabetes R73.03 Prostate cancer C61 Thalassemia trait, alpha D56.3 Peripheral arterial disease I73.9 Time Spent (min) 35 (4) Hypertension Hypertension type: primary hypertension Qualified Code(s): I10 - Essential (primary) hypertension
[2024-05-04] MEDS: LACTATED RINGER'S 1,000 ML IV SCH (14:12)
[2024-05-04] MEDS ORDERED: PROPOFOL IV EMULSION 10 MG/ML 20 ML VIAL IV ONE ×2 (14:34→15:48)
[2024-05-04] MEDS ORDERED: DEXAMETHASONE SOD INJ 4 MG/ML VIAL ONE (14:34)
[2024-05-04] MEDS ORDERED: fentaNYL citrate PF 100 MCG/2 ML VIAL ONE (14:34)
[2024-05-04] MEDS ORDERED: ONDANSETRON INJ 2 MG/ML 2 ML VIAL ONE (14:34)
[2024-05-04] MEDS ORDERED: LIDOCAINE 2% 2 ML VIAL/AMP(20MG/ML) INFIL ONE (14:34)
[2024-05-04] MEDS ORDERED: BUPIVACAINE 0.5 % 5 MG/1 ML PF 10ML VIAL ONE (14:38)
[2024-05-04] MEDS ORDERED: PHENYLEPHRINE HCL 10 MG/ML VIAL ONE ×2 (14:39→15:48)
[2024-05-04] MEDS ORDERED: ALBUMIN HUMAN 5% 12.5 GM/250 ML VIAL IV ONE (14:40)
[2024-05-04] MEDS ORDERED: LABETALOL HCL IV 5 MG/ML 20ML IV PRN (14:41)
[2024-05-04] MEDS ORDERED: ATROPINE SULFATE 0.1 MG/ML 10ML SYR IV PRN (14:41)
[2024-05-04] MEDS ORDERED: ePHEDrine sulfate 50 MG/ML AMP IV PRN (14:41)
[2024-05-04] MEDS ORDERED: fentaNYL citrate PF 100 MCG/2 ML VIAL IV PRN (14:41)
[2024-05-04] MEDS ORDERED: ONDANSETRON INJ 2 MG/ML 2 ML VIAL IV PRN (14:41)
[2024-05-04] MEDS ORDERED: PHENYLEPHRINE 100MCG/ML 5ML SYR IV PRN (14:41)
[2024-05-04] MEDS: ceFAZolin 2,000 MG/15 ML IV PUSH IV ONE (14:59)
[2024-05-04] MEDS: BUPIVACAINE/EPINEPHRINE 0.5% MPF 1:200,000 30 ML VIAL ONE (16:10)
--- NOTE | 2024-05-04 16:43 | Operative Report ---
PG Post Operative Report Pre & Post Diagnosis Operation Date: 05/04/24 08:05 Pre-Op Diagnosis: Displaced Right Femoral Neck Fracture Post-Op Diagnosis: Displaced Right Femoral Neck Fracture I identified the patient and participated in the time-out.: Yes Procedure Operation Date: 05/04/24 08:05 Actual Procedures p Right Cemented Bipolar Hip(Right) - Donell Keith MD Surgeon Donell Keith MD Claims Agent Right Of Way Estevan Looney PA-C Estimated Blood Loss 100 Findings Consistent with Post-Op Diagnosis Displaced femoral neck fracture. Minimal arthritic change. Specimens Right femoral head sent for pathology Anesthesia Type Spinal MAC Complications none Disposition Accompanied Patient To Recovery: No Indications Patient is an 83-year-old elderly gentleman who sustained a fall yesterday. He had acute onset of pain and could not ambulate. He was brought to emergency room x-rays with displaced femoral neck fracture. He had no pre-existing hip pain or significant arthritis. He elected proceed with surgical management. Description of Procedure Operative implants consist of: 1. DePuy size 3 high offset [place] cemented femoral stem. 2. +5/28 mm metal articular ball with a 48 mm bipolar shell and liner. 3. Small cement restrictor. 4. Distal cement centralizer. The patient was taken the operating, identified, placed on the operating table in supine position. All contact areas were properly padded. IV antibiotics provided by anesthesia team. Spinal anesthetic was implemented. The patient was then placed in the left lateral decubitus administration. An axillary roll was placed. Distal Birkett position was used for positioning. The right hip and leg were then scrubbed with Hibiclens and then prepped with ChloraPrep and draped in usual sterile fashion. A posterolateral approach to the right hip was then performed to a curvilinear incision centered over the greater trochanter. Sharp dissection was carried through subcutaneous tissue down to level the IT band gluteal fascia. IT band gluteal fascia incised longitudinally in line with skin incision. The underlying greater trochanter bursa was excised. The piriformis and external rotators were tagged and taken off the posterior aspect of the hip joint capsule. The capsule was then teed to allow for later repair. The hip was internally rotated. A femoral neck osteotomy cut was made at the base of the fracture site which was about a centimeter above the lesser trochanter. Femoral neck was removed. The femoral head was removed from the acetabulum. The acetabulum was sized to a size 48. Attention drawn the femur. The proximal femur was entered with a Cook cutter followed by canal finder and lateralizing reamer. I then broached beginning with size 1 progressing up to a 2. I could not quite get it through 3 down. We trialed the 2 broach and it seemed to fit appropriately with a high offset neck. Was fully stable. Leg lengths appeared equal. We elect to place these implants. The hip incision was then irrigated extensively. The JERILYN canal was then cleaned. A double batch of Palacos G cement was mixed. A small cement restrictor was placed down the canal. A double batch of Palacos G cement was injected the canal and a size 3 high offset stem was then placed. Once the cement hardened a +5/20 mm articular ball with a 48 mm bipolar shell and liner was placed. Hip was located once again found to be stable. Attention drawn toward closing. The wound was irrigated coconuts of pulsatile lavage solution. I did inject locally with 60 cc of half percent Marcaine with epinephrine. The posterior capsule was then repaired with #2 Tycron suture. The external rotators were repaired to the posterior aspect of the hip abductors with #2 Tycron suture. The IT band and gluteal fascia then closed with #1 PDS suture in running fashion the subcutaneous tissue was then closed with 2 layers of the deep layer #1 Vicryl suture and subcutaneous tissues with 2-0 Dexon suture in a buried interrupted fashion. Skin was closed with skin mary. Leg was then cleaned and dried and sterile dressing with Xeroform, 4 fours, sterile ABD pad and foam tape was applied. Patient then transferred to the recovery room in stable condition. Patient tolerated the procedure well and there were no complications. Estevan Looney, my physician teacher assistant, was present for the entire procedure. His assistance was essential and required for appropriate patient positioning, prepping and draping, surgical exposure, performing the technical details of the operation, placement the implants, closure of the wound, and placement of the sterile bandage. I attest to the content of the Intraoperative Record and any orders documented t herein. Any exceptions are noted below.
--- NOTE | 2024-05-04 17:22 | Anesthesiology Progress Note ---
Date of Service May 04, 2024 Anesthesia Post Procedure Vital Signs Vital Signs: Temp Pulse Pulse Pulse Resp BP Pulse Ox 05/04/24 17:10 87 22 152/62 H 88 L 05/04/24 17:00 76 16 160/58 H 95 05/04/24 16:50 79 14 151/60 H 97 05/04/24 16:41 36.0 C L 78 18 155/65 H 95 05/04/24 13:53 37 C 96 H 20 178/69 H 92 05/04/24 13:30 91 H 05/04/24 11:30 36.9 C 96 H 18 150/66 H 91 05/04/24 08:13 92 H 05/04/24 07:50 05/04/24 07:34 36.8 C 97 H 20 154/78 H 97 05/04/24 05:05 88 16 94 05/04/24 02:35 36.8 C 96 H 20 166/62 H 91 05/03/24 23:45 96 H 05/03/24 23:44 37.1 C 95 H 20 164/71 H 93 05/03/24 21:15 37.7 C H 96 H 18 153/69 H 96 05/03/24 20:45 05/03/24 20:45 37.7 C H 96 H 18 153/69 H 96 05/03/24 20:45 05/03/24 20:37 O2 Del Method O2 Flow Rate 05/04/24 17:10 Room Air 05/04/24 17:00 Oxymask 6 05/04/24 16:50 Oxymask 10 05/04/24 16:41 Oxymask 10 05/04/24 13:53 Oxymask 3 05/04/24 13:30 05/04/24 11:30 Oxymask 3 05/04/24 08:13 05/04/24 07:50 Oxymask 5 05/04/24 07:34 Oxymask 3 05/04/24 05:05 Oxymask 4 05/04/24 02:35 Oxymask 4 05/03/24 23:45 05/03/24 23:44 Nasal Cannula 4 05/03/24 21:15 Nasal Cannula 05/03/24 20:45 Nasal Cannula 2 05/03/24 20:45 Nasal Cannula 2 05/03/24 20:45 Nasal Cannula 2 05/03/24 20:37 Room Air Pain Intensity Right Hip: Pain Intensity: 10 Transfer of Care Handoff Completed per policy Notes Mental Status: alert / awake / arousable and participated in evaluation Patient Amnestic to Procedure: Yes Nausea / Vomiting: adequately controlled Pain: adequately controlled Airway Patency, RR, SpO2: stable & adequate BP & HR: stable & adequate Hydration State: stable & adequate Neuraxial Anesthesia: was administered and sensory block is resolving Anesthetic Complications: no major complications apparent and Pt Satisfied with anesthetic care
[2024-05-04] MEDS: buPROPion XL 300 MG TABCR PO SCH (17:59)
[2024-05-04] MEDS: CHOLECALCIFEROL 25 MCG (1000 UNITS) TAB PO SCH (17:59)
[2024-05-04] MEDS: amLODIPine BESYLATE 5 MG TAB PO SCH (17:59)
[2024-05-04] MEDS: SODIUM CHLORIDE 0.9% 1,000 ML IV SCH (18:27)
[2024-05-04] MEDS: traMADol HCL 50 MG TABLET PO PRN (18:34)
[2024-05-04] MEDS: ceFAZolin 2000MG 2,000 MG/15 ML SYR IV ONE (18:54)
[2024-05-04] MEDS: VALSARTAN 80 MG TAB PO SCH (19:41)
[2024-05-04] MEDS: ATORVASTATIN 40 MG TAB PO SCH (19:41)
[2024-05-04] MEDS: DONEPEZIL HCL 10 MG TAB PO SCH (19:41)
[2024-05-04] MEDS: ASPIRIN 81 MG ECTAB PO SCH (19:43)
[2024-05-04] MEDS: ceFAZolin 1000MG 1,000 MG/7.5 ML SYR IV SCH (21:03)
--- NOTE | 2024-05-04 21:21 | XRay Report ---
XR hip RT min 2V CLINICAL HISTORY: Post-Operative implant position TECHNIQUE: 2 views of the right hip and single frontal view of the pelvis were obtained. Comparison: Comparison is made to hip radiographs 05/03/2024 FINDINGS: Patient is status post total hip arthroplasty with expected postsurgical changes including soft tissu e swelling and subcutaneous emphysema. IMPRESSION: Expected postoperative appearance status post placement of total hip arthroplasty. ACT 112: Negative or not required by law. Electronically signed by: Curtis Ochoa M.D. 05/04/2024 9:20 PM
[2024-05-05] MEDS: PROMETHAZINE HCL 12.5 MG in SODIUM CHLORIDE 0.9% 50 ML IV STA (01:04)
[2024-05-05 06:32] LABS: Hematocrit (blood only) 24.5 % (42.0-52.0); Hemoglobin 7.5 g/dl (14.0-18.0); Mean Corpuscular Hemoglobin 17.6 pg (25.0-34.0); Mean Corpuscular Hgb Conc 30.6 g/dL (32.0-36.0); Mean Corpuscular Volume 57.4 fL (80.0-100.0); RDW Coefficient of Variation 18.5 % (11.5-14.5); RDW Standard Deviation 36.2 fL (36.4-46.3); Red Blood Count 4.27 M/uL (4.70-6.10); White Blood Count 12.15 K/ul (4.8-10.8)
[2024-05-05 06:50] LABS: Calcium 8.8 mg/dl (8.6-10.3); Creatinine Clr Calc Pharmacy 58.8 ml/min; Est GFR (African American) 97.4 ml/min; Est GFR (Non-African American) 84.1 ml/min; Potassium 3.2 mmol/L (3.5-5.1)
[2024-05-05 07:30] LABS: Mean Platelet Volume 8.9 fL (9.4-12.4); Platelet Count 311 K/uL (130-400)
[2024-05-05 07:31] LABS: Acanthocytes 1+; Basophils # (auto) 0.01 K/uL (0.00-0.20); Basophils % (auto) 0.1 %; Immature Granulocytes # (auto) 0.18 K/uL (0.01-0.20); Immature Granulocytes % (auto) 1.5 %; Lymphocytes # (auto) 0.56 K/uL (1.20-3.40); Lymphocytes % (auto) 4.6 %; Microcytosis Present; Monocytes # (auto) 1.01 K/uL (0.11-0.59); Monocytes % (auto) 8.3 %; Neutrophils # (auto) 10.39 K/uL (1.40-6.50); Neutrophils % (auto) 85.5 %; Polychromasia 1+; Target Cells 1+
[2024-05-05] MEDS: PANTOprazole 40 MG TAB PO SCH (08:32)
[2024-05-05] MEDS: FLUoxetine HCL 20 MG CAP PO SCH ×2 (08:32→08:34)
[2024-05-05] MEDS: LIDOCAINE 5% 1 PATCH TD SCH (09:17)
--- NOTE | 2024-05-05 10:54 | Hospitalist Progress Note ---
Date of Service May 05, 2024 Assessment & Plan (1) Closed right hip fracture: Plan: Patient was brought to the hospital following a mechanical slip and fall. Found to have an acute displaced subcapital right femoral neck fracture Orthopedics have been consulted He is now day 1 s/p right arthroplasty Continue pain management, will minimize the use of morphine and opiates Physical therapy (2) Carotid artery stenosis: Plan: Status post carotid endarterectomy (3) Depression: Plan: Stable, continue home medications (4) Hypertension: Plan: Blood pressure stable for now continue home medications when reconciliation is done (5) Anemia: Plan: Etiology could be due to blood loss on dilution Hemoglobin will be monitored closely Transfuse if hemoglobin drops below 7 (6) DVT (deep venous thrombosis): Plan: History of 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 (7) Dementia: Plan: On donepezil at home (8) Prediabetes: Plan: Last hemoglobin A1c 7 Follows closely with PCP (9) Prostate cancer: (10) Thalassemia trait, alpha: (11) Peripheral arterial disease: Plan Continue hospitalization, Awaiting evaluation by physical therapy Full code Admission and Anticipated Discharge Date Admission Date: May 03, 2024 Subjective Patient seen and examined, Lying quietly in bed following hip surgery Review of Systems Review of Systems: All systems reviewed are negative, apart from the ones contained in the history. Physical Exam Physical Exam: The patient is awake, alert and oriented 3, well developed and well nourished, normocephalic and atraumatic, lying in bed and in no acute distress. HEENT--PERRL, EOMI, mucous membranes and oropharynx mildly dry Neck--supple. No JVD. No bruits. Thyroid normal, trachea midline, no adenopathy. Heart--normal S1 and S2. No murmurs, rubs or gallops. Lungs--clear bilaterally, no respiratory distress, no accessory muscle use. Abdomen--normal bowel sounds and soft. Extremities--no cyanosis or clubbing. No edema.Right hip movement limited by pa in Dermatologic--normal skin turgor, normal color, no abnormal lymph nodes, no rash. Neurologic--cranial nerves II through XII grossly intact. Rheumatologic--normal range of motion. Psychiatric--normal affect. Results & Data Results & Data Vital Signs (Past 12 Hours) Vital Signs Temp Pulse Pulse Resp BP Pulse Ox O2 Del Method 05/05/24 08:30 Oxymask 05/05/24 08:02 99.0 F 82 18 140/61 90 Oxymask 05/05/24 02:23 98.1 F 94 H 18 132/39 L 90 Oxymask 05/05/24 00:30 73 05/05/24 00:30 Oxymask O2 Flow Rate 05/05/24 08:30 5 05/05/24 08:02 5 05/05/24 02:23 5.0 05/05/24 00:30 05/05/24 00:30 5 PG Care Time/CCT Total # of Minutes Spent Total Time Spent with Patient: Total time spent is greater than 50% in coordination of care (as documented) at patient's floor/unit and/or counseling patient: Coding Level of Care Code 84836 SUB INP/OBS CARE 2/35MIN Diagnoses Closed right hip fracture S72.001A Carotid artery stenosis I65.29 Depression F32.9 Primary hypertension I10 Hypertension type: primary hypertension Anemia D64.9 DVT (deep venous thrombosis) I82.409 Dementia F03.90 Prediabetes R73.03 Prostate cancer C61 Thalassemia trait, alpha D56.3 Peripheral arterial disease I73.9 Time Spent (min) 35 (4) Hypertension Hypertension type: primary hypertension Qualified Code(s): I10 - Essential (primary) hypertension
[2024-05-05] MEDS: POTASSIUM CHLORIDE CRTAB 20 MEQ TABCR PO STA (11:51)
[2024-05-05] MEDS: APIXABAN 2.5 MG TAB PO SCH (17:52)
--- NOTE | 2024-05-05 18:06 | Orthopedic Progress Note ---
Date of Service May 05, 2024 Assessment & Plan (1) S/P total right hip arthroplasty: Plan: 83-year-old gentleman with a history of a DVT PE in the past now postop day 1 from a cemented bipolar hip arthroplasty for fracture. He is doing well. Reports no pain. He is neurologically intact. Hip is located. Plan: 1. DVT prophylaxis including thigh-high teds, SCDs, and working to start him on the Eliquis 24 hours postop for 4 weeks. They will be on a prophylactic dose. 2. PT/OT. Weight-bear as tolerated. Right total hip protocol. 3. Pain control doing okay with current pain regimen. 4. Medical management as per the medicine service. 5. Disposition. He is orthopedically okay for discharge anytime medically stable. He will need an orthopedic follow-up 2 to 3 weeks out from surgery date. Any orthopedic questions can be direct me at [phone]. (2) Closed right hip fracture: Admission and Anticipated Discharge Date Admission Date: May 03, 2024 Subjective 83-year-old gentleman postop day 1 from a right cemented bipolar hip arthroplasty for fracture. He is doing well. He is reports no pain today. No new complaints. Physical Exam Physical Exam: Physical examination was a pleasant elderly male. He sitting up in bed looks pretty comfortable pair examination of the right hip reveals dressing be clean dry and intact. Leg lengths are equal. Can dorsiflex and plantarflex his foot appropriately. He is neurologically intact. Results & Data Vital Signs (Past 12 Hours) Vital Signs Temp Pulse Resp BP Pulse Ox Pulse Ox Pulse Ox 05/05/24 13:08 93 90 05/05/24 12:06 36.5 C 88 18 166/65 H 90 05/05/24 11:07 92 05/05/24 08:30 05/05/24 08:02 37.2 C 82 18 140/61 90 O2 Del Method O2 Flow Rate O2 Flow Rate O2 Flow Rate 05/05/24 13:08 5 5 05/05/24 12:06 Oxymask 5 05/05/24 11:07 05/05/24 08:30 Oxymask 5 05/05/24 08:02 Oxymask 5 Laboratory Results Hemoglobin is 7.5. Hematocrit 24.5. Electrolytes are stable.
[2024-05-05] MEDS: OPTIRAY 320 125ml IV ONE (22:34)
--- NOTE | 2024-05-05 22:49 | Communication Note ---
Date of Service: May 05, 2024 Patient with worsening oxygen requirement overnight. Was on 4 L nasal cannula but then began to drop and needed to be increased to 10 L. Patient denies any troubles with shortness of breath, chest pain, hip pain, or cough. Chest x-ray and CTA chest was ordered to rule out PE. Patient did receive 2.5 mg of Eliquis prior to this episode. CTA showed no acute pulmonary embolism. Did however show bilateral airspace consolidations consistent with multilobar pneumonia as well as trace right pleural effusion. -Will start patient on vancomycin and Zosyn to cover community-acquired pneumonia as well as aspiration pneumonia. Will also give flutter valve and incentive spirometry. -CTA of the chest also showed a large nodule in the left leg lung apex measuring 2.8 x 1.9 cm. Lung cancer cannot be excluded. There is a consideration for a PET/CT scan. May consider overread by daytime radiology prior to getting PET/CT scan.
[2024-05-06] MEDS ORDERED: VANCOMYCIN CONSULT ACTIVE PRN (00:11)
[2024-05-06] MEDS: MELATONIN 3 MG TAB PO PRN (00:23)
--- NOTE | 2024-05-06 00:34 | CT Scan Report ---
Exam(s): CTA CHEST IV Amt: 116 ml optiray 320 EXAM: CT Angiography Chest With Intravenous Contrast CLINICAL HISTORY: Reason for exam: PE. TECHNIQUE: Axial computed tomographic angiography images of the chest with intravenous contrast. CTDI is 14.2 mGy and DLP is 419.51 mGy-cm. Automated exposure control was utilized for the study. A dose lowering technique was utilized adhering to the principles of ALARA. MIP reconstructed images were created and reviewed. COMPARISON: No relevant prior studies available. FINDINGS: Pulmonary arteries: Unremarkable. No acute pulmonary embolism. Aorta: No acute findings. No thoracic aortic aneurysm. Lungs: Bilateral airspace consolidations, preferentially involving the RIGHT upper lobe and posterior aspect of the RIGHT lower lobe, consistent with multilobar pneumonia. Large nodule in the LEFT lung apex measures 2. 8 x 1.9 cm. Lung cancer not excluded. Consider PET/CT scan. Pleural space: Trace RIGHT pleural effusion. No pneumothorax. Heart: Unremarkable. No cardiomegaly. No significant pericardial effusion. No evidence of RV dysfunction. Bones/joints: No acute fracture. No dislocation. Soft tissues: Unremarkable. Lymph nodes: Unremarkable. No enlarged lymph nodes. Adrenals: RIGHT adrenal adenoma measures 2.3 x 1.5 cm. IMPRESSION: 1. No acute pulmonary embolism. 2. Bilateral airspace consolidations, preferentially involving the RIGHT upper lobe and posterior aspect of the RIGHT lower lobe, consistent with multilobar pneumonia. 3. Large nodule in the LEFT lung apex measures 2.8 x 1.9 cm. Lung cancer not excluded. Consider PET/CT scan. 4. Trace RIGHT pleural effusion. Electronically signed by: Lennox Moran MD 05/06/24 00:33 AM
[2024-05-06] MEDS: PIPERACILLIN/TAZOBACTAM 4.5 GM in DEXTROSE 5% MINI-B 100 ML IV ONE (00:53)
[2024-05-06] MEDS: VANCOMYCIN HCL 1,250 MG in SODIUM CHLORIDE 0.9% 250 ML IV ONE (01:35)
[2024-05-06] MEDS: PIPERACILLIN/TAZOBACTAM 4.5 GM in DEXTROSE 5% MINI-B 100 ML IV SCH (05:29)
--- NOTE | 2024-05-06 06:55 | XRay Report ---
XR chest 1V portable CLINICAL HISTORY: Worsening oxygen requirement TECHNIQUE: Single frontal radiograph of the chest was obtained. Comparison: Comparison is made to chest radiograph 05/04/2024 FINDINGS: No lines and tubes are seen. Calcified aortic knob is seen. Multifocal airspace opacities most conspi cuous in the right upper lung, increased in conspicuity from prior exam. No evidence of pleural effus ion or pneumothorax. IMPRESSION: Multifocal airspace opacities may represent atelectasis, pneumonia, and/or aspiration. Findings are c ompatible with worsening pneumonia. ACT 112: Negative or not required by law. Electronically signed by: Curtis Ochoa M.D. 05/06/2024 6:54 AM
[2024-05-06 07:51] LABS: Hematocrit (blood only) 22.8 % (42.0-52.0); Hemoglobin 7.1 g/dl (14.0-18.0); Mean Corpuscular Hgb Conc 31.1 g/dL (32.0-36.0); Mean Corpuscular Volume 57.9 fL (80.0-100.0); Mean Platelet Volume 9.8 fL (9.4-12.4); Nucleated RBC # (auto) 0.03 K/uL (0.00-0.12); Nucleated RBC % (auto) 0.3 %; Platelet Count 290 K/uL (130-400); RDW Coefficient of Variation 18.6 % (11.5-14.5); RDW Standard Deviation 37.2 fL (36.4-46.3); Red Blood Count 3.94 M/uL (4.70-6.10); White Blood Count 11.52 K/ul (4.8-10.8)
[2024-05-06 08:00] LABS: BUN Creatinine Ratio 48.5 (10-20); Calcium 8.5 mg/dl (8.6-10.3); Creatinine Clr Calc Pharmacy 67.4 ml/min; Est GFR (African American) 103.1 ml/min; Est GFR (Non-African American) 88.9 ml/min; Potassium 3.3 mmol/L (3.5-5.1)
[2024-05-06] MEDS: VANCOMYCIN HCL 1,500 MG in SODIUM CHLORIDE 0.9% 500 ML IV SCH (09:49)
[2024-05-06] MEDS: ADVANCED PROBIOTIC 625 MG CAPSULE PO SCH (11:17)
[2024-05-06] MEDS: FLUoxetine HCL 20 MG CAP PO SCH (11:33)
--- NOTE | 2024-05-06 11:53 | Hospitalist Progress Note ---
Date of Service May 06, 2024 Assessment & Plan (1) Aspiration pneumonia: Plan: Overnight patient desaturated and started requiring more oxygen. Most likely due to aspiration pneumonia, Chest x-ray and CT suggest aspiration pneumonia Initially started on vancomycin and Zosyn MRSA nares was negative, will discontinue vancomycin for now. Continue only Zosyn Currently on high flow oxygen Consult pulmonology (2) Closed right hip fracture: Plan: Patient was brought to the hospital following a mechanical slip and fall. Found to have an acute displaced subcapital right femoral neck fracture Orthopedics have been consulted He is now day 2 s/p right arthroplasty Continue pain management, will minimize the use of morphine and opiates Continue apixaban 2.5 mg twice daily for DVT Weightbearing as tolerated per orthopedics Physical therapy Recommends acute rehab (3) Carotid artery stenosis: Plan: Status post carotid endarterectomy (4) Depression: Plan: Stable, continue home medications (5) Hypertension: Plan: Blood pressure stable for now continue home medications when reconciliation is done (6) Anemia: Plan: Etiology could be due to blood loss on dilution Hemoglobin will be monitored closely Transfuse if hemoglobin drops below 7 (7) DVT (deep venous thrombosis): Plan: History of 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 (8) Dementia: Plan: On donepezil at home (9) Prediabetes: Plan: Last hemoglobin A1c 7 Follows closely with PCP (10) Prostate cancer: (11) Thalassemia trait, alpha: (12) Peripheral arterial disease: Plan Continue hospitalization, Patient will require acute rehab Full code Admission and Anticipated Discharge Date Admission Date: May 03, 2024 Subjective Patient seen and examined, and daughter by the bedside, pain is under good control Review of Systems Review of Systems: All systems reviewed are negative, apart from the ones contained in the history. Physical Exam Physical Exam: The patient is awake, alert and oriented 3, well developed and well nourished, normocephalic and atraumatic, lying in bed and in no acute distress. HEENT--PERRL, EOMI, mucous membranes and oropharynx mildly dry Neck--supple. No JVD. No bruits. Thyroid normal, trachea midline, no adenopathy. Heart--normal S1 and S2. No murmurs, rubs or gallops. Lungs--clear bilaterally, no respiratory distress, no accessory muscle use. Abdomen--normal bowel sounds and soft. Extremities--no cyanosis or clubbing. No edema.Right hip movement limited by pain Dermatologic--normal skin turgor, normal color, no abnormal lymph nodes, no rash. Neurologic--cranial nerves II through XII grossly intact. Rheumatologic--normal range of motion. Psychiatric--normal affect. Results & Data Results & Data Vital Signs (Past 12 Hours) Vital Signs Temp Pulse Pulse Resp BP Pulse Ox O2 Del Method 05/06/24 11:34 97.7 F 81 20 150/68 H 93 High Flow Nasal Cannula 05/06/24 11:25 82 20 94 High Flow Nasal Cannula 05/06/24 08:50 82 20 92 High Flow Nasal Cannula 05/06/24 08:00 Nasal Cannula 05/06/24 07:58 100.4 F H 85 22 146/66 H 88 L Nasal Cannula, High Flow Nasal Cannula 05/06/24 03:41 97.3 F L 82 18 144/68 H 88 L Nasal Cannula O2 Flow Rate FiO2 05/06/24 11:34 30 70 05/06/24 11:25 30 70 05/06/24 08:50 30 70 05/06/24 08:00 10 05/06/24 07:58 10 05/06/24 03:41 9.5 PG Care Time/CCT Total # of Minutes Spent Total Time Spent with Patient: Total time spent is greater than 50% in coordination of care (as documented) at patient's floor/unit and/or counseling patient: Coding Level of Care Code 69386 SUB INP/OBS CARE 2/35MIN Diagnoses Aspiration pneumonia J69.0 Closed right hip fracture S72.001A Carotid artery stenosis I65.29 Depression F32.9 Primary hypertension I10 Hypertension type: primary hypertension Anemia D64.9 DVT (deep venous thrombosis) I82.409 Dementia F03.90 Prediabetes R73.03 Prostate cancer C61 Thalassemia trait, alpha D56.3 Peripheral arterial disease I73.9 Time Spent (min) 35 (5) Hypertension Hypertension type: primary hypertension Qualified Code(s): I10 - Essential (primary) hypertension
--- NOTE | 2024-05-06 12:12 | Pulmonary Consultation ---
Date of Consultation May 06, 2024 Assessment & Plan (1) Aspiration pneumonia: Plan 83 y/o male admitted due to close hip fracture that develop acute hypoxemic failure secondary to aspiration pneumonia currently on high flow nasal cannula - Agree with current antibiotic treatment - Procal added, as well as a Biofire to rule out any other infective sources - Continue high flow, keep saturation >88% - Aspiration precautions and Speech therapy evaluation - On regards on his large nodule, patient would benefit for further diagnostic test such as biopsy. Supervising Physician Co-Signing Physician Notes Agree with the note as outlined above aside for any additions/exceptions noted: 83-year-old male with history of pulmonary emphysema, recurrent aspiration, dementia and frequent falls who presented with a fall and hip fracture. Last night he was delirious and had probable aspiration event. This morning he was very short of breath and hypoxemic per nursing staff. Collateral history is also obtained from the patient's daughter who is an anesthesiologist who works [employer] at this hospital. He is currently requiring high flow oxygen which is being weaned down. He denies any shortness of breath at rest. He has coarse rhonchi bilaterally. No overt wheezes on exam. He is mildly tachypneic but does not appear to be in any significant respiratory distress. His CT chest from today was personally reviewed which reveals right upper lobe groundglass and consolidative changes and also areas in the lingula with groundglass changes. There are small areas of atelectasis in the right lower lobe and left lower lobe. There is a large left upper lobe lung nodule measuring upwards of 2.8 cm which is lobulated concerning for lung cancer given his advanced smoking history. Plan at this time is to continue with high flow oxygen and wean as able to maintain sats above 89%. Continue pulmonary toilet with flutter valve and incentive spirometry. Will hold on prednisone therapy at this time as the patient is not overtly bronchospastic. Continue with Zosyn. Check procalcitonin. Possible chemical pneumonitis versus bacterial aspiration pneumonia. The left upper lobe nodule does appear new compared to 2021 and is highly suspicious for malignancy. Recommend outpatient PET scan and probable navigational bronchoscopy if the nodule appears to be PET avid and there are no other PET avid foci. I am happy to follow-up with the patient in the outpatient setting. History of Present Illness Attending Physician: Rose Smith MD History of Present Illness 83 y/o male with PMH of Carotid artery stenosis, dementia, HTN, anemia, and pre diabetes admitted due to an hip fracture. Overnight patient develop hypoxia requiring high flow nasal cannula. Chest CTA did not showed any acute pulmonary embolism, however did showed bilateral airspace consolidations consistent multilobar pneumonia. CT also showed a large nodule in the left lung apex measuring 2.8 x 1.9 cm. On evaluation patient was resting comfortable, in no acute distress awake, oriented to person and placed. He denied any shortness of breath, chest pain, cough pain, palpitations. He does have history of chronic smoker (40 pack year), he did quit 2 years ago. Patient has history of DVTs that was being treated with Eliquis then transitioned to Lovenox due to GI bleeding. No previous history of lung disease. Daughter and on bedside refers some worsening on mentation since a couple of month ago. No acute changes on mentation as per family. Last chest CT on 2021 reviewed, no nodule noticed. Allergies Allergy/AdvReac Type Severity Reaction Status Date / Time No Known Allergies Allergy Verified 03/26/24 16:43 Home Medications Medication Instructions Recorded Confirmed Type fluoxetine 20 mg capsule 20 mg PO QAM #90 caps 06/30/19 05/03/24 History fluoxetine 40 mg capsule 40 mg PO QAM #90 caps 06/30/19 05/03/24 History aspirin 81 mg tablet,delayed 81 mg PO QAM 05/31/21 05/03/24 History release (Adult Aspirin Regimen) donepezil 10 mg tablet 10 mg PO HS 01/27/22 05/03/24 History bupropion HCl 300 mg 24 hr tablet, 300 mg PO QAM #30 tabs 06/14/22 05/03/24 Rx extended release cholecalciferol (vitamin D3) 25 25 mcg PO DAILY 05/21/23 05/03/24 History mcg (1,000 unit) capsule valsartan 80 mg tablet 80 mg PO BID #180 tabs 09/18/23 05/03/24 Rx amlodipine 10 mg tablet 10 mg PO QAM #90 tabs 01/07/24 05/03/24 Rx atorvastatin 80 mg tablet 80 mg PO QPM #90 tabs 03/01/24 05/03/24 Rx mecobalamin (vitamin B12) 500 mcg 500 mcg PO UD 03/26/24 05/03/24 History chewable tablet pantoprazole 40 mg tablet,delayed 40 mg PO DAILY 05/03/24 05/03/24 History release Patient History Medical History DVT (deep venous thrombosis) Pelvic fracture Acute GI bleeding Current smoker PAD (peripheral artery disease) follows with Dr. Matute PFO (patent foramen ovale) ?? per , "very small hole in his heart but doesn't cause any problems" -- does not follow with sales broker Anemia Lung nodule per - pcp was monitoring, no changes, benign and no longer monitoring GERD (gastroesophageal reflux disease) occ OTC antacid History of prostate cancer 2006 -- treated surgically Anxiety and depression Brain aneurysm hx Internal hemorrhoids Diverticulosis Surgical History H/O cerebral aneurysm repair History of right-sided carotid endarterectomy History of colonoscopy History of prostate biopsy History of prostatectomy History of cataract surgery History of inguinal hernia repair Family History Mother Stroke Father Stroke Unknown Prostate cancer Brother Prostate cancer Other No family history of adverse response to anesthesia Denies family history of Ovarian cancer Breast cancer Colorectal cancer Social History Smoking Status: Former smoker Tobacco Type: Cigarettes Age Started Using Tobacco: 28; packs per day: 7; Cigarettes Per Day: 1/2 pack; Second Hand Exposure: No; Do You Dip or Chew Tobacco: No; Hx Alcohol Use: Yes Alcohol type: hard liquor Hx Substance Use: No Preferred Language: French Communication Ability: Effective Communication Ability Comment: speaks and understands [place] very well. Hearing Ability: Normal Salvationist Required: No Beliefs That Will Affect Care: None marital status: Current Living Situation: Spouse and Family Current Living Situation Comment: Lives with at their Daughter and Son-in-laws home. current occupational status: retired Feels Safe at Home: Yes Diet: regular Diet Comment: healthy caffeine: Yes Dental Care, Regularly: Yes Physical Activity Frequency: Daily Seatbelt Use: always Sunscreen Use: No Assistive Devices: Cane and Walker Review of Systems Review of Systems: as per HPI Physical Exam Constitutional: well developed and well nourished; no acute distress Eyes: PERRL, conjunctivae normal, anicteric sclerae ENMT: external ear and nose normal, oropharynx normal Neck: No JVD, no bruits Respiratory: no respiratory distress, does not use accessory muscles and no cough Auscultation: + rhonchi (scant ) Cardiovascular: RRR, no murmur, no edema Gastrointestinal (Abdomen): normal bowel sounds, soft, nontender, no hepatosplenomegaly Neurologic: PERRL, EOMI, accommodation nl, no face palsy, no dysarthria Psychiatric: A+Ox3, euthymic affect Results & Data Results & Data Vital Signs (Past 12 Hours) Vital Signs Temp Pulse Pulse Resp BP Pulse Ox O2 Del Method 05/06/24 11:34 36.5 C 81 20 150/68 H 93 High Flow Nasal Cannula 05/06/24 11:25 82 20 94 High Flow Nasal Cannula 05/06/24 08:50 82 20 92 High Flow Nasal Cannula 05/06/24 08:00 Nasal Cannula 05/06/24 07:58 38.0 C H 85 22 146/66 H 88 L Nasal Cannula, High Flow Nasal Cannula 05/06/24 03:41 36.3 C L 82 18 144/68 H 88 L Nasal Cannula O2 Flow Rate FiO2 05/06/24 11:34 30 70 05/06/24 11:25 30 70 05/06/24 08:50 30 70 05/06/24 08:00 10 05/06/24 07:58 10 05/06/24 03:41 9.5
--- NOTE | 2024-05-06 12:39 | Billing Data ---
Date of Service May 06, 2024 Coding Level of Care Code 21980 INT INP/OBS CARE
[2024-05-06] MEDS: POTASSIUM CHLORIDE CRTAB 20 MEQ TABCR PO STA (13:18)
[2024-05-06 13:55] LABS: Adenovirus PCR Not Detected (NotDetected); Bordetella parapertussis PCR Not Detected (NotDetected); Bordetella pertussis PCR Not Detected (NotDetected); Chlamydia pneumoniae PCR Not Detected (NotDetected); Coronavirus 229E PCR Not Detected (NotDetected); Coronavirus CoV-2 (COVID19)PCR Not Detected (NotDetected); Coronavirus HKU1 PCR Not Detected (NotDetected); Coronavirus NL63 PCR Not Detected (NotDetected); Coronavirus OC43PCR Not Detected (NotDetected); Human Metapneumovirus PCR Not Detected (NotDetected); Influenza A PCR Not Detected (NotDetected); Influenza B PCR Not Detected (NotDetected); Mycoplasma pneumoniae PCR Not Detected (NotDetected); Parainfluenza Virus 1 PCR Not Detected (NotDetected); Parainfluenza Virus 2 PCR Not Detected (NotDetected); Parainfluenza Virus 3 PCR Not Detected (NotDetected); Parainfluenza Virus 4 PCR Not Detected (NotDetected); Respiratory Syncytial VirusPCR Not Detected (NotDetected); Rhinovirus/Enterovirus PCR Not Detected (NotDetected)
[2024-05-07 07:02] LABS: Hematocrit (blood only) 21.7 % (42.0-52.0); Hemoglobin 6.7 g/dl (14.0-18.0); Mean Corpuscular Hemoglobin 17.6 pg (25.0-34.0); Mean Corpuscular Hgb Conc 30.9 g/dL (32.0-36.0); Mean Platelet Volume 9.3 fL (9.4-12.4); Nucleated RBC # (auto) 0.06 K/uL (0.00-0.12); Nucleated RBC % (auto) 0.6 %; Platelet Count 308 K/uL (130-400); RDW Coefficient of Variation 18.2 % (11.5-14.5); RDW Standard Deviation 35.8 fL (36.4-46.3); Red Blood Count 3.81 M/uL (4.70-6.10); White Blood Count 9.86 K/ul (4.8-10.8)
[2024-05-07 07:13] LABS: BUN Creatinine Ratio 50.8 (10-20); Calcium 8.2 mg/dl (8.6-10.3); Creatinine Clr Calc Pharmacy 72.8 ml/min; Est GFR (African American) 106.4 ml/min; Est GFR (Non-African American) 91.8 ml/min; Potassium 3.4 mmol/L (3.5-5.1)
--- NOTE | 2024-05-07 07:19 | Orthopedic Progress Note ---
Date of Service May 07, 2024 Assessment & Plan (1) S/P total right hip arthroplasty: Plan: 83-year-old gentleman with multiple medical comorbidities postop day 3 from a cemented bipolar hip arthroplasty for fracture orthopedically doing reasonably well. Has had some multiple medical issues that are being managed. His pain appears controlled. Hips located. Plan: From the orthopedic standpoint he is doing reasonably well. Will plan on DVT prophylaxis including thigh-high teds, SCDs, and Eliquis for about a month. He can fully weight-bear as tolerated. Needs to obey hip precautions. Routine wound care. Medical management as per the medicine service. I need to see him back 2 to 3 weeks out from surgery date. Any orthopedic questions can be directed me at [phone] Admission and Anticipated Discharge Date Admission Date: May 03, 2024 Subjective 83-year-old gentleman postop day 3 from a right cemented bipolar hip arthroplasty for fracture. Apparently said desaturated some and felt to have an aspiration pneumonia. He once again denies any significant hip pain. They have been getting up and walking and he seems to be doing okay with that Physical Exam Physical Exam: Physical examination was a pleasant frail elderly male. He is lying in bed. Looks reasonably comfortable but appears a bit confused. Examination of the right hip reveals the incision site to be clean dry and intact. Thigh is soft and supple. Hips located. Leg lengths are equal. He is neurologically intact. Results & Data Vital Signs (Past 12 Hours) Vital Signs Temp Pulse Pulse Resp BP BP Pulse Ox 05/07/24 04:01 36.6 C 73 18 151/58 H 97 05/07/24 03:14 89 18 94 05/06/24 23:49 78 05/06/24 23:22 92 H 18 93 05/06/24 19:57 87 22 85 L 05/06/24 19:42 37.1 C 85 18 132/53 L 89 L 05/06/24 19:30 O2 Del Method O2 Flow Rate FiO2 05/07/24 04:01 High Flow Nasal Cannula 30 05/07/24 03:14 High Flow Nasal Cannula 30 60 05/06/24 23:49 05/06/24 23:22 High Flow Nasal Cannula 30 60 05/06/24 19:57 High Flow Nasal Cannula 30 55 05/06/24 19:42 High Flow Nasal Cannula 30 05/06/24 19:30 Other 30 60
[2024-05-07] MEDS ORDERED: SODIUM CHLORIDE 0.9% 250 ML IV PRN (07:21)
--- NOTE | 2024-05-07 10:06 | XRay Report ---
SINGLE VIEW CHEST CLINICAL HISTORY: Pneumonia FINDINGS: An AP, portable, upright chest radiograph is compared to chest x-ray and chest CT dated 04/11. The cardiomediastinal the heart is enlarged and noting atherosclerotic calcification of the t horacic aorta. Emphysema and chronic interstitial thickening is similar to previous. The highly suspi cious left apical soft tissue lesion seen by CT is not visualized on x-ray. Interstitial thickening i s increased from previous and may represent fluid overload/congestive change. Asymmetric right upper lobe airspace opacities are again noted. No large pleural effusion or pneumothorax is identified. The skeletal structures are osteopenic. There are chronic/healed left-sided rib fractures. There is calc ific tendinopathy seen in the left shoulder. IMPRESSION: 1. Cardiomegaly and emphysema. 2. There is increased interstitial thickening as compared to previous which may represent fluid overl oad/congestive change. Correlate clinically. 3. Asymmetric right upper lobe airspace opacities have partially cleared as compared to 05/05/2024. Th is likely represents pneumonia. Continued follow-up to resolution is recommended. 4. The highly suspicious left apical soft tissue lesion seen by CT is not appreciated on x-ray. A audi g cancer remains the diagnosis of exclusion. ACT 112: Positive. There are findings on this exam that require communication between the performing entity and the patient following Patient Test Result Information Act ([place] Act 112) guidelines. Electronically signed by: Aldo Fenton M.D. 05/07/2024 10:05 AM
--- NOTE | 2024-05-07 10:47 | Pulmonology Progress Note ---
Date of Service May 07, 2024 Assessment & Plan (1) Aspiration pneumonia: Plan 83 y/o male admitted due to close hip fracture s/p right hip arthroplasty found with aspiration pneumonia and hypoxemia. - Chest x ray repeat this am showed increased interstitial thickening which may represent fluid overload/congestive change. - Procal this morning within normal range - Continue Zosyn to cover for the aspiration pneumonia - Will add a dose of Lasix 40 mg once now and reasses his respiratory status. BNP ordered. Echocardiogram will be order to rule out congestive heart failure - Bio fire was negative - Currently on high flow oxygen, plan to wean as possible with goal of sat Oxygen at 89% - Aspiration precautions and Speech therapy evaluation - On regards on his large nodule, patient would benefit for further diagnostic test in outpatient setting Admission and Anticipated Discharge Date Admission Date: May 03, 2024 Supervising Physician Co-Signing Physician Notes Agree with the note as outlined above aside for any additions/exceptions noted: 83-year-old male with history of pulmonary emphysema, recurrent aspiration, dementia and frequent falls who presented with a fall and hip fracture. Last night he was delirious and had probable aspiration event. This morning he was very short of breath and hypoxemic per nursing staff. Collateral history is also obtained from the patient's daughter who is an anesthesiologist who works [employer] at this hospital. He is currently requiring high flow oxygen which is being weaned down. He denies any shortness of breath at rest. He has coarse rhonchi bilaterally. No overt wheezes on exam. He is mildly tachypneic but does not appear to be in any significant respiratory distress. His CT chest from 05/06/2024 was personally reviewed which reveals right upper lobe groundglass and consolidative changes and also areas in the lingula with groundglass changes. There are small areas of atelectasis in the right lower lobe and left lower lobe. There is a large left upper lobe lung nodule measuring upwards of 2.8 cm which is lobulated concerning for lung cancer given his advanced smoking history. Procalcitonin is downtrending. Continue with broad-spectrum antibiotics to cover for aspiration pneumonia. Will give a one-time dose of 40 mg IV Lasix today due to increased interstitial edema noted on chest x-ray. Will also check echo and BNP. Respiratory viral panel was negative. Speech therapy evaluated the patient and feels that the patient likely has severe reflux. Will start the patient on 40 mg Protonix twice daily. Will need outpatient PET scan to follow-up on the left upper lobe lung nodule which is highly suspicious for malignancy. Subjective Overnight seem to had an increase on his oxygen. Nurse concerned of repeat aspiration event. Patient evaluated this morning found in NAD, awake and oriented x3. Denied any SOB, chest pain, palpitations or any other symptoms. at bedside. Denied any hip pain. Review of Systems Review of Systems: as per HPI Physical Exam Constitutional: well developed and well nourished; no acute distress Eyes: PERRL, conjunctivae normal, anicteric sclerae ENMT: external ear and nose normal, oropharynx normal Neck: trachea midline, no thyromegaly Respiratory: no respiratory distress, does not use accessory muscles and no cough Auscultation: + crackles (scant, lower bases) Cardiovascular: RRR, no murmur, no edema Gastrointestinal (Abdomen): normal bowel sounds, soft, nontender, no hepatosplenomegaly Musculoskeletal: no cyanosis or clubbing, extremities motor strength 5/5 Skin: no rashes, warm and dry Neurologic: PERRL, EOMI, accommodation nl, no face palsy, no dysarthria Results & Data Results & Data Vital Signs (Past 12 Hours) Vital Signs Temp Pulse Pulse Resp BP Pulse Ox O2 Del Method 05/07/24 08:16 36.3 C L 75 20 152/69 H 95 High Flow Nasal Cannula 05/07/24 07:00 77 05/07/24 04:01 36.6 C 73 18 151/58 H 97 High Flow Nasal Cannula 05/07/24 03:14 89 18 94 High Flow Nasal Cannula 05/06/24 23:49 78 05/06/24 23:22 92 H 18 93 High Flow Nasal Cannula O2 Flow Rate FiO2 05/07/24 08:16 30 05/07/24 07:00 05/07/24 04:01 30 05/07/24 03:14 30 60 05/06/24 23:49 05/06/24 23:22 30 60 Resident Activity Tracking Resident Involvement: Resident Care Provided Care Provided: Adult Hospital Medicine
--- NOTE | 2024-05-07 11:33 | Hospitalist Progress Note ---
Date of Service May 07, 2024 Assessment & Plan (1) Aspiration pneumonia: Plan: Overnight patient desaturated and started requiring more oxygen. Most likely due to aspiration pneumonia, Chest x-ray and CT suggest aspiration pneumonia Initially started on vancomycin and Zosyn MRSA nares was negative, will discontinue vancomycin for now. Continue only Zosyn Currently on high flow oxygen, 30 L/min Appreciate pulmonology recommendations (2) Closed right hip fracture: Plan: Patient was brought to the hospital following a mechanical slip and fall. Found to have an acute displaced subcapital right femoral neck fracture Orthopedics have been consulted He is now day 3 s/p right arthroplasty Continue pain management, will minimize the use of morphine and opiates Continue apixaban 2.5 mg twice daily for DVT Weightbearing as tolerated per orthopedics Physical therapy Recommends acute rehab, However family is opting for [facility] home health (3) Carotid artery stenosis: Plan: Status post carotid endarterectomy (4) Depression: Plan: Stable, continue home medications (5) Hypertension: Plan: Blood pressure stable for now continue home medications when reconciliation is done (6) Anemia: Plan: Etiology could be due to blood loss on dilution Hemoglobin will be monitored closely Transfuse if hemoglobin drops below 7 (7) DVT (deep venous thrombosis): Plan: History of 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 (8) Acute blood loss anemia: Plan: Acute blood loss anemia, hemoglobin dropped to 6.7 Although there could be a component of IV dilution Will transfuse 1 unit of blood. (9) Dementia: Plan: On donepezil at home (10) Prediabetes: Plan: Last hemoglobin A1c 7 Follows closely with PCP (11) Prostate cancer: (12) Thalassemia trait, alpha: (13) Peripheral arterial disease: Plan Continue hospitalization, PT recommends rehab, however family declining they want [facility] home health instead Full code Admission and Anticipated Discharge Date Admission Date: May 03, 2024 Subjective Patient seen and examined, at the bedside, still on high flow oxygen Review of Systems Review of Systems: All systems reviewed are negative, apart from the ones contained in the history. Physical Exam Physical Exam: The patient is awake, alert and oriented 3, well developed and well nourished, normocephalic and atraumatic, lying in bed and in no acute distress. HEENT--PERRL, EOMI, mucous membranes and oropharynx mildly dry Neck--supple. No JVD. No bruits. Thyroid normal, trachea midline, no adenopathy. Heart--normal S1 and S2. No murmurs, rubs or gallops. Lungs--clear bilaterally, no respiratory distress, no accessory muscle use. Abdomen--normal bowel sounds and soft. Extremities--no cyanosis or clubbing. No edema.Right hip movement limited by pain Dermatologic--normal skin turgor, normal color, no abnormal lymph nodes, no rash. Neurologic--cranial nerves II through XII grossly intact. Rheumatologic--normal range of motion. Psychiatric--normal affect. Results & Data Results & Data Vital Signs (Past 12 Hours) Vital Signs Temp Pulse Pulse Resp BP BP Pulse Ox 05/07/24 11:11 98.1 F 79 14 139/60 93 05/07/24 10:59 98.2 F 78 16 122/74 94 05/07/24 08:16 97.3 F L 75 20 152/69 H 95 05/07/24 07:00 77 05/07/24 04:01 97.9 F 73 18 151/58 H 97 05/07/24 03:14 89 18 94 05/06/24 23:49 78 O2 Del Method O2 Flow Rate FiO2 05/07/24 11:11 05/07/24 10:59 05/07/24 08:16 High Flow Nasal Cannula 30 05/07/24 07:00 05/07/24 04:01 High Flow Nasal Cannula 30 05/07/24 03:14 High Flow Nasal Cannula 30 60 05/06/24 23:49 PG Care Time/CCT Total # of Minutes Spent Total Time Spent with Patient: Total time spent is greater than 50% in coordination of care (as documented) at patient's floor/unit and/or counseling patient: Coding Level of Care Code 36917 SUB INP/OBS CARE 2/35MIN Diagnoses Aspiration pneumonia J69.0 Closed right hip fracture S72.001A Carotid artery stenosis I65.29 Depression F32.9 Primary hypertension I10 Hypertension type: primary hypertension Anemia D64.9 DVT (deep venous thrombosis) I82.409 Acute blood loss anemia D62 Dementia F03.90 Prediabetes R73.03 Prostate cancer C61 Thalassemia trait, alpha D56.3 Peripheral arterial disease I73.9 Time Spent (min) 35 (5) Hypertension Hypertension type: primary hypertension Qualified Code(s): I10 - Essential (primary) hypertension
--- NOTE | 2024-05-07 12:58 | Billing Data ---
Date of Service May 07, 2024 Coding Level of Care Code 84546 SUB INP/OBS CARE
[2024-05-07] MEDS: FUROSEMIDE 40 MG/4 ML VIAL IV ONE (13:52)
--- NOTE | 2024-05-07 15:38 | XCELERA ---
[id number]
[2024-05-07] MEDS: PANTOprazole 40 MG TAB PO SCH (20:00)
[2024-05-08 06:48] LABS: Hematocrit (blood only) 25.9 % (42.0-52.0); Hemoglobin 8.1 g/dl (14.0-18.0); Mean Corpuscular Hemoglobin 18.6 pg (25.0-34.0); Mean Corpuscular Hgb Conc 31.3 g/dL (32.0-36.0); Mean Corpuscular Volume 59.4 fL (80.0-100.0); Mean Platelet Volume 9.7 fL (9.4-12.4); Nucleated RBC # (auto) 0.08 K/uL (0.00-0.12); Platelet Count 345 K/uL (130-400); RDW Standard Deviation 40.4 fL (36.4-46.3); Red Blood Count 4.36 M/uL (4.70-6.10); White Blood Count 8.19 K/ul (4.8-10.8)
[2024-05-08 07:21] LABS: BUN Creatinine Ratio 42.4 (10-20); Calcium 8.3 mg/dl (8.6-10.3); Creatinine Clr Calc Pharmacy 77.7 ml/min; Est GFR (African American) 109.3 ml/min; Est GFR (Non-African American) 94.3 ml/min; Potassium 3.1 mmol/L (3.5-5.1)
[2024-05-08] MEDS: ALBUT/IPRATROP 3MG/0.5MG NEB 3 ML VIAL NEB PRN (08:39)
--- NOTE | 2024-05-08 10:21 | Hospitalist Progress Note ---
Date of Service May 08, 2024 Assessment & Plan (1) Aspiration pneumonia: Plan: Patient seen on IV Zosyn Cultures remain negative Currently on high flow oxygen, 30 L/min Wean as tolerated Appreciate pulmonology recommendations (2) Closed right hip fracture: Plan: Patient was brought to the hospital following a mechanical slip and fall. Found to have an acute displaced subcapital right femoral neck fracture Orthopedics have been consulted He is now day 4 s/p right arthroplasty Continue pain management, will minimize the use of morphine and opiates Continue apixaban 2.5 mg twice daily for DVT Weightbearing as tolerated per orthopedics Physical therapy Recommends acute rehab, However family is opting for [facility] home health (3) Carotid artery stenosis: Plan: Status post carotid endarterectomy (4) Depression: Plan: Stable, continue home medications (5) Hypertension: Plan: Blood pressure stable for now continue home medications when reconciliation is done (6) Anemia: Plan: Hemoglobin stable following transition of monitor blood Continue to monitor H&H (7) DVT (deep venous thrombosis): Plan: History of 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 However has been started on low-dose 2.5 mg twice daily apixaban following his surgery (8) Acute blood loss anemia: Plan: Hemoglobin stable following transfusion of blood (9) Dementia: Plan: On donepezil at home (10) Prediabetes: Plan: Last hemoglobin A1c 7 Follows closely with PCP (11) Prostate cancer: (12) Thalassemia trait, alpha: (13) Peripheral arterial disease: Plan Continue hospitalization, PT recommends rehab, however family declining they want [facility] home health instead Full code Admission and Anticipated Discharge Date Admission Date: May 03, 2024 Subjective Patient seen and examined, at the bedside, still on high flow oxygen Review of Systems Review of Systems: All systems reviewed are negative, apart from the ones contained in the history. Physical Exam Physical Exam: The patient is awake, alert and oriented 3, well developed and well nourished, normocephalic and atraumatic, lying in bed and in no acute distress. HEENT--PERRL, EOMI, mucous membranes and oropharynx mildly dry Neck--supple. No JVD. No bruits. Thyroid normal, trachea midline, no adenopathy. Heart--normal S1 and S2. No murmurs, rubs or gallops. Lungs--clear bilaterally, no respiratory distress, no accessory muscle use. Abdomen--normal bowel sounds and soft. Extremities--no cyanosis or clubbing. No edema.Right hip movement limited by pain Dermatologic--normal skin turgor, normal color, no abnormal lymph nodes, no rash. Neurologic--cranial nerves II through XII grossly intact. Rheumatologic--normal range of motion. Psychiatric--normal affect. Results & Data Results & Data Vital Signs (Past 12 Hours) Vital Signs Temp Pulse Resp BP Pulse Ox O2 Del Method O2 Flow Rate 05/08/24 08:39 83 18 92 High Flow Nasal Cannula 30 05/08/24 07:22 78 20 93 High Flow Nasal Cannula 30 05/08/24 07:13 98.1 F 73 20 158/72 H 92 High Flow Nasal Cannula 30 05/08/24 05:02 97.9 F 84 18 144/67 H 95 High Flow Nasal Cannula 30 05/08/24 02:50 75 14 92 High Flow Nasal Cannula 30 05/07/24 23:50 83 14 91 High Flow Nasal Cannula 30 05/07/24 23:05 98.4 F 83 18 138/62 92 High Flow Nasal Cannula 30 FiO2 05/08/24 08:39 50 05/08/24 07:22 50 05/08/24 07:13 05/08/24 05:02 05/08/24 02:50 50 05/07/24 23:50 50 05/07/24 23:05 PG Care Time/CCT Total # of Minutes Spent Total Time Spent with Patient: Total time spent is greater than 50% in coordination of care (as documented) at patient's floor/unit and/or counseling patient: Coding Level of Care Code 90161 SUB INP/OBS CARE 2/35MIN Diagnoses Aspiration pneumonia J69.0 Closed right hip fracture S72.001A Carotid artery stenosis I65.29 Depression F32.9 Primary hypertension I10 Hypertension type: primary hypertension Anemia D64.9 DVT (deep venous thrombosis) I82.409 Acute blood loss anemia D62 Dementia F03.90 Prediabetes R73.03 Prostate cancer C61 Thalassemia trait, alpha D56.3 Peripheral arterial disease I73.9 Time Spent (min) 35 (5) Hypertension Hypertension type: primary hypertension Qualified Code(s): I10 - Essential (primary) hypertension
[2024-05-08] MEDS: POTASSIUM CHLORIDE CRTAB 20 MEQ TABCR PO STA (10:38)
--- NOTE | 2024-05-08 11:03 | XRay Report ---
XR chest 1V portable CLINICAL HISTORY: f/u pneumonia COMPARISON STUDY: Chest CT May 05, 2024. Chest radiograph May 07, 2024. FINDINGS: There is no pneumothorax. Interstitial thickening has slightly improved. Right upper lung a irspace opacity persists. Mild left basilar opacity persists. Left upper lobe nodule is again noted. There is no pneumothorax. Trace bilateral pleural effusions. Cardiomediastinal silhouette is stable. IMPRESSION: 1. Slight improvement in pulmonary edema. 2. Persistent multifocal airspace opacities consistent with pneumonia. 3. Redemonstration of the suspicious left lung nodule suggestive of lung cancer ACT 112: Negative or not required by law. Electronically signed by: Remberto Alfonso M.D. 05/08/2024 11:01 AM
--- NOTE | 2024-05-08 11:56 | Pulmonology Progress Note ---
Date of Service May 08, 2024 Assessment & Plan (1) Aspiration pneumonia: Plan: Symptoms improving and oxygen requirements improving with the use of antibiotics. Continue antibiotics for 7 days total. Continue pulmonary toilet. Appreciate speech therapy consultation. (2) Diastolic CHF: Plan: Status post 20 mg IV Lasix yesterday with improvement of chest x-ray findings and hypoxemia. Echo revealed grade 1 diastolic dysfunction. (3) Lung nodule: Plan: Left upper lobe lung nodule highly suspicious for malignancy. Will schedule outpatient PET scan and follow-up with me. (4) Acute hypoxic respiratory failure: Plan: Oxygen requirements have decreased significantly and he is now on 4 L of oxygen via nasal cannula. This will be weaned down further as able. Plan Thank you for the consult. Will follow with you. Admission and Anticipated Discharge Date Admission Date: May 03, 2024 Subjective Patient notes some fatigue but doing quite well from breathing perspective. Weaned down to 4 L of supplemental oxygen with RT in the room. Patient daughter at bedside as well. Patient denies any chest pain or shortness of breath at rest. Review of Systems Review of Systems: All systems reviewed & are unremarkable except as noted in HPI & below Physical Exam Eyes: PERRL, conjunctivae normal, anicteric sclerae ENMT: external ear and nose normal, oropharynx normal Neck: trachea midline, no thyromegaly Respiratory: normal respiratory effort Auscultation: + rhonchi Gastrointestinal (Abdomen): normal bowel sounds, soft, nontender, no hepatosplenomegaly Musculoskeletal: no cyanosis or clubbing, extremities motor strength 5/5 Skin: no rashes, warm and dry Neurologic: PERRL, EOMI, accommodation nl, no face palsy, no dysarthria Psychiatric: A+Ox3, euthymic affect Results & Data Results & Data Vital Signs (Past 12 Hours) Vital Signs Temp Pulse Resp BP Pulse Ox O2 Del Method O2 Flow Rate 05/08/24 11:31 36.5 C 55 L 19 129/60 96 High Flow Nasal Cannula 05/08/24 08:39 83 18 92 High Flow Nasal Cannula 05/08/24 07:22 78 20 93 High Flow Nasal Cannula 05/08/24 07:13 36.7 C 73 20 158/72 H 92 High Flow Nasal Cannula 05/08/24 05:02 36.6 C 84 18 144/67 H 95 High Flow Nasal Cannula 05/08/24 02:50 75 14 92 High Flow Nasal Cannula 30 FiO2 05/08/24 11:31 05/08/24 08:39 50 05/08/24 07:22 50 05/08/24 07:13 05/08/24 05:02 05/08/24 02:50 50 PG Care Time/CCT Total # of Minutes Spent Total Time Spent with Patient: Total time spent is greater than 50% in coordination of care (as documented) at patient's floor/unit and/or counseling patient: Coding Level of Care Code 57736 SUB INP/OBS CARE 2/35MIN Diagnoses Aspiration pneumonia J69.0 Diastolic CHF I50.30 Lung nodule R91.1 Acute hypoxic respiratory failure J96.01
[2024-05-09 06:16] LABS: Hematocrit (blood only) 25.1 % (42.0-52.0); Hemoglobin 8.1 g/dl (14.0-18.0); Mean Corpuscular Hgb Conc 32.3 g/dL (32.0-36.0); Mean Corpuscular Volume 58.8 fL (80.0-100.0); Mean Platelet Volume 9.5 fL (9.4-12.4); Nucleated RBC # (auto) 0.04 K/uL (0.00-0.12); Nucleated RBC % (auto) 0.5 %; Platelet Count 376 K/uL (130-400); RDW Coefficient of Variation 22.5 % (11.5-14.5); RDW Standard Deviation 39.7 fL (36.4-46.3); Red Blood Count 4.27 M/uL (4.70-6.10); White Blood Count 8.71 K/ul (4.8-10.8)
[2024-05-09 06:28] LABS: BUN Creatinine Ratio 37.3 (10-20); Calcium 8.3 mg/dl (8.6-10.3); Creatinine Clr Calc Pharmacy 77.7 ml/min; Est GFR (African American) 109.3 ml/min; Est GFR (Non-African American) 94.3 ml/min; Potassium 3.5 mmol/L (3.5-5.1)
--- NOTE | 2024-05-09 09:18 | Hospitalist Progress Note ---
Date of Service May 09, 2024 Assessment & Plan (1) Aspiration pneumonia: Plan: Patient still on IV Zosyn Cultures remain negative Repeat chest x-ray still shows evidence of infiltrates however pulmonary edema has improved. No longer on high flow oxygen, currently on oxygen by nasal cannula 4 L. Wean as tolerated Appreciate pulmonology recommendations (2) Closed right hip fracture: Plan: Patient was brought to the hospital following a mechanical slip and fall. Found to have an acute displaced subcapital right femoral neck fracture Orthopedics have been consulted He is now day 5 s/p right arthroplasty Continue pain management, will minimize the use of morphine and opiates Continue apixaban 2.5 mg twice daily for DVT Weightbearing as tolerated per orthopedics Physical therapy Recommends acute rehab, However family is opting for [facility] home health (3) Carotid artery stenosis: Plan: Status post carotid endarterectomy (4) Depression: Plan: Stable, continue home medications (5) Hypertension: Plan: Blood pressure stable for now continue home medications when reconciliation is done (6) Anemia: Plan: Hemoglobin stable following transition of monitor blood Continue to monitor H&H (7) Left upper lobe pulmonary nodule: Plan: Outpatient follow-up with pulmonology (8) DVT (deep venous thrombosis): Plan: History of DVT was on anticoagulation however had severe GI bleed and this was d iscontinued. However has been started on low-dose 2.5 mg twice daily apixaban following his surgery (9) Acute blood loss anemia: Plan: Hemoglobin stable following transfusion of blood (10) Dementia: Plan: On donepezil at home (11) Prediabetes: Plan: Last hemoglobin A1c 7 Follows closely with PCP (12) Prostate cancer: (13) Thalassemia trait, alpha: (14) Peripheral arterial disease: Plan Continue hospitalization, PT recommends rehab, however family declining they want [facility] home health instead Full code Admission and Anticipated Discharge Date Admission Date: May 03, 2024 Subjective Patient seen and examined today, feels a whole lot better, shortness of breath is improved. Now on 4 L of oxygen through nasal cannula Review of Systems Review of Systems: All systems reviewed are negative, apart from the ones contained in the history. Physical Exam Physical Exam: The patient is awake, alert and oriented 3, well developed and well nourished, normocephalic and atraumatic, lying in bed and in no acute distress. HEENT--PERRL, EOMI, mucous membranes and oropharynx mildly dry Neck--supple. No JVD. No bruits. Thyroid normal, trachea midline, no adenopathy. Heart--normal S1 and S2. No murmurs, rubs or gallops. Lungs--clear bilaterally, no respiratory distress, no accessory muscle use. Abdomen--normal bowel sounds and soft. Extremities--no cyanosis or clubbing. No edema.Right hip movement limited by pain Dermatologic--normal skin turgor, normal color, no abnormal lymph nodes, no rash. Neurologic--cranial nerves II through XII grossly intact. Rheumatologic--normal range of motion. Psychiatric--normal affect. Results & Data Results & Data Vital Signs (Past 12 Hours) Vital Signs Temp Pulse Pulse Resp BP BP Pulse Ox 05/09/24 07:29 98.4 F 79 19 148/67 H 90 05/09/24 05:22 97.7 F 84 18 151/64 H 89 L 05/08/24 23:14 98.1 F 84 20 134/55 L 89 L 05/08/24 22:54 83 O2 Del Method O2 Flow Rate 05/09/24 07:29 Nasal Cannula 4 05/09/24 05:22 Nasal Cannula 4.0 05/08/24 23:14 Nasal Cannula 4.0 05/08/24 22:54 PG Care Time/CCT Total # of Minutes Spent Total Time Spent with Patient: Total time spent is greater than 50% in coordination of care (as documented) at patient's floor/unit and/or counseling patient: Coding Level of Care Code 80442 SUB INP/OBS CARE 2/35MIN Diagnoses Aspiration pneumonia J69.0 Closed right hip fracture S72.001A Carotid artery stenosis I65.29 Depression F32.9 Primary hypertension I10 Hypertension type: primary hypertension Anemia D64.9 Left upper lobe pulmonary nodule R91.1 DVT (deep venous thrombosis) I82.409 Acute blood loss anemia D62 Dementia F03.90 Prediabetes R73.03 Prostate cancer C61 Thalassemia trait, alpha D56.3 Peripheral arterial disease I73.9 Time Spent (min) 35 (5) Hypertension Hypertension type: primary hypertension Qualified Code(s): I10 - Essential (primary) hypertension
--- NOTE | 2024-05-09 10:53 | Pulmonology Progress Note ---
Date of Service May 09, 2024 Assessment & Plan (1) Aspiration pneumonia: Plan: Symptoms improving and oxygen requirements improving with the use of antibiotics. Continue antibiotics for 7 days total. Continue pulmonary toilet. Appreciate speech therapy consultation. (2) Diastolic CHF: Plan: Echo revealed grade 1 diastolic dysfunction. (3) Lung nodule: Plan: Left upper lobe lung nodule highly suspicious for malignancy. Will schedule outpatient PET scan and follow-up with me. (4) Acute hypoxic respiratory failure: Plan: Oxygen requirements have decreased significantly and he is now on 4 L of oxygen via nasal cannula. This will be weaned down further as able. Probably will need supplemental oxygen upon discharge. Plan No further recommendations at this time. Please call with questions. Thank for the consult. Discussed with bedside RN and patient's as well. Admission and Anticipated Discharge Date Admission Date: May 03, 2024 Subjective Patient seen and examined. Comfortable today sitting up in chair. No events overnight. Review of Systems Review of Systems: All systems reviewed & are unremarkable except as noted in HPI & below Physical Exam Eyes: PERRL, conjunctivae normal, anicteric sclerae ENMT: external ear and nose normal, oropharynx normal Neck: trachea midline, no thyromegaly Respiratory: normal respiratory effort Auscultation: + rhonchi Gastrointestinal (Abdomen): normal bowel sounds, soft, nontender, no hepatosplenomegaly Musculoskeletal: no cyanosis or clubbing, extremities motor strength 5/5 Skin: no rashes, warm and dry Neurologic: PERRL, EOMI, accommodation nl, no face palsy, no dysarthria Psychiatric: A+Ox3, euthymic affect Results & Data Results & Data Vital Signs (Past 12 Hours) Vital Signs Temp Pulse Pulse Resp BP BP Pulse Ox 05/09/24 07:29 36.9 C 79 19 148/67 H 90 05/09/24 07:00 83 05/09/24 05:22 36.5 C 84 18 151/64 H 89 L 05/08/24 23:14 36.7 C 84 20 134/55 L 89 L 05/08/24 22:54 83 O2 Del Method O2 Flow Rate 05/09/24 07:29 Nasal Cannula 4 05/09/24 07:00 05/09/24 05:22 Nasal Cannula 4.0 05/08/24 23:14 Nasal Cannula 4.0 05/08/24 22:54 PG Care Time/CCT Total # of Minutes Spent Total Time Spent with Patient: Total time spent is greater than 50% in coordination of care (as documented) at patient's floor/unit and/or counseling patient: Coding Level of Care Code 38372 SUB INP/OBS CARE 2/35MIN Diagnoses Aspiration pneumonia J69.0 Diastolic CHF I50.30 Lung nodule R91.1 Acute hypoxic respiratory failure J96.01
[2024-05-09] MEDS ORDERED: POLYETHYLENE (MIRALAX) 17 GM PACK PO PRN (13:25)
[2024-05-10 06:52] LABS: Hemoglobin 7.9 g/dl (14.0-18.0); Mean Corpuscular Hemoglobin 18.6 pg (25.0-34.0); Mean Corpuscular Hgb Conc 31.6 g/dL (32.0-36.0); Mean Corpuscular Volume 58.8 fL (80.0-100.0); Mean Platelet Volume 9.5 fL (9.4-12.4); Nucleated RBC # (auto) 0.04 K/uL (0.00-0.12); Nucleated RBC % (auto) 0.4 %; Platelet Count 462 K/uL (130-400); RDW Coefficient of Variation 23.3 % (11.5-14.5); RDW Standard Deviation 40.4 fL (36.4-46.3); Red Blood Count 4.25 M/uL (4.70-6.10); White Blood Count 9.52 K/ul (4.8-10.8)
[2024-05-10 10:34] LABS: Potassium 3.3 mmol/L (3.5-5.1)
[2024-05-10 10:40] LABS: Creatinine Clr Calc Pharmacy 84.9 ml/min; Est GFR (African American) 113.3 ml/min; Est GFR (Non-African American) 97.8 ml/min
[2024-05-10] MEDS: POTASSIUM CHLORIDE CRTAB 20 MEQ TABCR PO STA (12:53)
--- NOTE | 2024-05-10 15:19 | Fluoroscopy Report ---
MODIFIED BARIUM SWALLOW CLINICAL HISTORY: assess for aspiration COMPARISON STUDY: None. FLUOROSCOPY TIME: 1.01 minutes. Ka, r: 3.23 mGy. TECHNIQUE: A modified barium swallow was performed in conjunction with Speech Pathology. The patient ingested varying consistencies of barium containing material. Video fluoroscopy was performed. FINDINGS: No tracheal aspiration was identified with thin liquids, nectar thick liquids, pudding or c ookie and pudding consistencies. Epiglottic inversion was normal. Laryngeal elevation was normal. IMPRESSION: 1. No tracheal aspiration. 2. Full recommendations by Speech histology to follow. ACT 112: Negative or not required by law. Electronically signed by: Remberto Alfonso M.D. 05/10/2024 3:18 PM
--- NOTE | 2024-05-10 18:43 | Hospitalist Progress Note ---
Date of Service May 10, 2024 Assessment & Plan (1) Aspiration pneumonia: Plan: Patient had an aspiration event overnight on 05/05 where he became acutely short of breath, hypoxic requiring 10 L nasal cannula and had a CT scan of the chest which showed right upper lobe groundglass and consolidative changes as well as areas in the lingula with groundglass changes and small areas of atelectasis in the right lower and left lower lobes. There is also a LUIZ lung nodule measuring 2.8 cm lobulated concerning for lung cancer Appreciate pulmonology consultation Patient improving on IV Zosyn-continue for total of 7 days Supplemental O2 being weaned down to 2 L nasal cannula-continue to wean off oxygen Video swallow performed on 05/10 shows no aspiration-speech therapy counseled him and his /daughter on a slippery diet, remaining upright, not overfeeding and not laying down after eating Increased home Protonix to 40 Mg p.o. twice daily (2) Closed right hip fracture: Plan: Patient was brought to the hospital following a mechanical slip and fall after which he was found to have an acute displaced subcapital right femoral neck fracture Orthopedics consulted and he is now s/p right hip cemented bipolar arthroplasty on 05/04 Hemoglobin chronically low and not significant drop from previous-hemoglobin 7.9 Continue pain management with tramadol as needed, add on acetaminophen as needed Continue apixaban 2.5 mg twice daily for DVT prophylaxis along with teds and SCDs for 1 month Weightbearing as tolerated per orthopedics Plan to go to rehab [facility]bey hip precautions Follow-up with orthopedic surgery Dr. Donell Keith in 2 to 3 weeks from the surgery date (3) Carotid artery stenosis: Plan: Status post carotid endarterectomy Continue home aspirin and atorvastatin (4) Depression: Plan: Stable, continue home fluoxetine, bupropion (5) Hypertension: Plan: Blood pressure is controlled Continue amlodipine, valsartan (6) Anemia: Plan: Patient with thalassemia and chronically low hemoglobin with baseline 8-9, MCV severely microcytic in the 50s Hemoglobin stable today at 7.9 after he did receive 1 unit PRBCs on 05/07 Follow CBC (7) Left upper lobe pulmonary nodule: Plan: Outpatient follow-up with pulmonology as planned with PET scan Will ask nurse navigator to help arrange this (8) DVT (deep venous thrombosis): Plan: 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 However has been started on low-dose 2.5 mg twice daily apixaban following his surgery and is doing fine with this currently Continue Eliquis 2.5 Mg p.o. twice daily x 1 month Monitor for bleeding and monitor CBC closely (9) Dementia: Plan: Continue donepezil (10) Prediabetes: Plan: Last hemoglobin A1c 7 Follows closely with PCP Plan DVT prophylaxis-Eliquis, SCDs, MEGHANN ellison Disposition-continued stay on PCU but improving, can likely discharge to rehab in the next 1 to 2 days Referrals made with case management Admission and Anticipated Discharge Date Admission Date: May 03, 2024 Subjective Patient having some pain in the hip but fairly well-controlled and did work with physical therapy today He also had a video swallow study today and I discussed his care with speech therapy. I also discussed his care with his at the bedside and his daughter on the phone Patient is weaned down to 2 L nasal cannula and improving Telemetry with normal sinus rhythm with rates in the 70s to 80s with PACs Physical Exam Constitutional: WD/WN, vitals as above Respiratory: normal respiratory effort and + cough Auscultation: + crackles (Bilateral lower lung [place]); no rhonchi and no wheezes Cardiovascular: Rate/Rhythm: regular rate and regular rhythm Heart Sounds: no murmur Extremities: no edema Gastrointestinal (Abdomen): normal bowel sounds, soft, nontender, no hepatosplenomegaly Results & Data Results & Data Vital Signs (Past 12 Hours) Vital Signs Temp Pulse Pulse Resp BP Pulse Ox O2 Del Method 05/10/24 15:36 78 05/10/24 15:23 36.7 C 81 16 122/63 92 Nasal Cannula 05/10/24 10:37 36.6 C 79 17 125/58 L 96 Nasal Cannula 05/10/24 09:11 Nasal Cannula 05/10/24 07:20 36.3 C L 78 20 148/62 H 91 Nasal Cannula O2 Flow Rate 05/10/24 15:36 05/10/24 15:23 2 05/10/24 10:37 3 05/10/24 09:11 3 05/10/24 07:20 3 Laboratory Results CBC, BMP reviewed PG Care Time/CCT Total # of Minutes Spent Total Time Spent with Patient: Total time spent is greater than 50% in coordination of care (as documented) at patient's floor/unit and/or counseling patient: Coding Level of Care Code 19420 SUB INP/OBS CARE 350MIN Diagnoses Aspiration pneumonia J69.0 Closed right hip fracture S72.001A Carotid artery stenosis I65.29 Depression F32.9 Primary hypertension I10 Hypertension type: primary hypertension Anemia D64.9 Left upper lobe pulmonary nodule R91.1 DVT (deep venous thrombosis) I82.409 Dementia F03.90 Prediabetes R73.03 (5) Hypertension Hypertension type: primary hypertension Qualified Code(s): I10 - Essential (primary) hypertension
[2024-05-11 07:45] LABS: Basophils # (auto) 0.03 K/uL (0.00-0.20); Basophils % (auto) 0.3 %; Eosinophils # (auto) 0.37 K/uL (0.00-0.50); Eosinophils % (auto) 3.7 %; Hematocrit (blood only) 25.8 % (42.0-52.0); Hemoglobin 8.1 g/dl (14.0-18.0); Lymphocytes # (auto) 1.06 K/uL (1.20-3.40); Lymphocytes % (auto) 10.7 %; Mean Corpuscular Hemoglobin 18.8 pg (25.0-34.0); Mean Corpuscular Hgb Conc 31.4 g/dL (32.0-36.0); Monocytes # (auto) 1.26 K/uL (0.11-0.59); Monocytes % (auto) 12.7 %; Neutrophils # (auto) 7.13 K/uL (1.40-6.50); Neutrophils % (auto) 71.6 %; Nucleated RBC # (auto) 0.04 K/uL (0.00-0.12); Nucleated RBC % (auto) 0.4 %; RDW Coefficient of Variation 23.8 % (11.5-14.5); RDW Standard Deviation 41.5 fL (36.4-46.3); White Blood Count 9.95 K/ul (4.8-10.8)
[2024-05-11 07:57] LABS: Mean Platelet Volume 9.1 fL (9.4-12.4); Platelet Count 517 K/uL (130-400)
[2024-05-11 08:12] LABS: Acanthocytes 1+; Anisocytosis Present; Magnesium 1.7 mg/dl (1.7-2.4); Microcytosis Present; Polychromasia 1+; Potassium 3.6 mmol/L (3.5-5.1); Schistocytes 1+
[2024-05-11 08:18] LABS: BUN Creatinine Ratio 32.2 (10-20); Creatinine Clr Calc Pharmacy 77.7 ml/min; Est GFR (African American) 109.3 ml/min; Est GFR (Non-African American) 94.3 ml/min
[2024-05-11] MEDS: ASPIRIN 81 MG ECTAB PO SCH (08:33)
--- NOTE | 2024-05-11 13:35 | Hospitalist Progress Note ---
Date of Service May 11, 2024 Assessment & Plan (1) Aspiration pneumonia: Plan: Patient had an aspiration event overnight on 05/05 where he became acutely short of breath, hypoxic requiring 10 L nasal cannula and had a CT scan of the chest which showed right upper lobe groundglass and consolidative changes as well as areas in the lingula with groundglass changes and small areas of atelectasis in the right lower and left lower lobes. There is also a LUIZ lung nodule measuring 2.8 cm lobulated concerning for lung cancer Appreciate pulmonology consultation Patient improving on IV Zosyn-continue for total of 7 days-last day 05/12/24 Supplemental O2 being weaned down to 2 L nasal cannula-continue to wean off oxygen if possible Continue ICS and flutter valve Video swallow performed on 05/10 shows no aspiration-speech therapy counseled him and his /daughter on a slippery diet, remaining upright, not overfeeding and not laying down after eating Increased home Protonix to 40 Mg p.o. twice daily Follow chest imaging as outpt (2) Closed right hip fracture: Plan: Patient was brought to the hospital following a mechanical slip and fall after which he was found to have an acute displaced subcapital right femoral neck fracture Orthopedics consulted and he is now s/p right hip cemented bipolar arthroplasty on 05/04 Hemoglobin chronically low and not significant drop from previous-hemoglobin stable at 8.0 Continue pain management with tramadol as needed, acetaminophen as needed Continue apixaban 2.5 mg twice daily for DVT prophylaxis along with teds and SCDs for 1 month Weightbearing as tolerated per orthopedics Plan to go to rehab [facility] hip precautions Follow-up with orthopedic surgery Dr. Donell Keith in 2 to 3 weeks from the surgery date (3) Anemia: Plan: Patient with thalassemia and chronically low hemoglobin with baseline 8-9, MCV severely microcytic in the 50s Also with acute blood loss anemia with hgb down to 6.8 post op requiring PRBCs x 1 unit transfused Hemoglobin stable at 8 Follow CBC especially given h/o GI bleeding on DOAC in the past and now on Eliquis (4) Thrombocytosis: Plan: plts continue to rise today to 500s most likely secondary to blood loss anemia and iron deficiency--> check Fe studies in AM and replace with IV iron as needed (5) Hypertension: Plan: Blood pressure is controlled Continue amlodipine, valsartan (6) Left upper lobe pulmonary nodule: Plan: Outpatient follow-up with pulmonology as planned with PET scan Will ask nurse navigator to help arrange this (7) DVT (deep venous thrombosis): Plan: 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 However has been started on low-dose 2.5 mg twice daily apixaban following his surgery and is doing fine with this currently Continue Eliquis 2.5 Mg p.o. twice daily x 1 month Monitor for bleeding and monitor CBC closely (8) Depression: Plan: Stable, continue home fluoxetine, bupropion (9) Carotid artery stenosis: Plan: Status post carotid endarterectomy Continue home aspirin and atorvastatin (10) Dementia: Plan: Continue donepezil (11) Prediabetes: Plan: Last hemoglobin A1c 7 Follows closely with PCP Plan DVT prophylaxis-Eliquis, SCDs, MEGHANN ellison Disposition-continued stay on PCU but improving, medically improving, can discharge to rehab once bed available in 1-2 days Referrals made with case management Admission and Anticipated Discharge Date Admission Date: May 03, 2024 Subjective Pt was OOB today with PT. Denies SOB, attempts to wean off O2 to room air but sats in 80s and O2 replaced. Denies productive cough. Not having much pain Tele with NSR, rates 70-80s Physical Exam Constitutional: WD/WN, vitals as above Respiratory: normal respiratory effort and + cough Auscultation: + crackles (Bilateral lower lung [place]); no rhonchi and no wheezes Cardiovascular: Rate/Rhythm: regular rate and regular rhythm Heart Sounds: no murmur Extremities: no edema Gastrointestinal (Abdomen): normal bowel sounds, soft, nontender, no hepatosplenomegaly Musculoskeletal: Extremities: + extremities abnormal to inspection (right hip with dressing intact) Results & Data Results & Data Vital Signs (Past 12 Hours) Vital Signs Temp Pulse Pulse Resp BP Pulse Ox O2 Del Method 05/11/24 11:28 36.6 C 79 19 152/74 H 94 Nasal Cannula 05/11/24 07:55 Nasal Cannula 05/11/24 07:30 36.8 C 79 18 146/66 H 98 Nasal Cannula 05/11/24 07:00 84 05/11/24 02:56 36.9 C 77 18 148/63 H 90 Nasal Cannula O2 Flow Rate 05/11/24 11:28 05/11/24 07:55 2 05/11/24 07:30 2 05/11/24 07:00 05/11/24 02:56 2.0 Laboratory Results CBC, BMP, magnesium reviewed PG Care Time/CCT Total # of Minutes Spent Total Time Spent with Patient: Total time spent is greater than 50% in coordination of care (as documented) at patient's floor/unit and/or counseling patient: Coding Level of Care Code 08645 SUB INP/OBS CARE 2/35MIN Diagnoses Aspiration pneumonia J69.0 Closed right hip fracture S72.001A Anemia D64.9 Thrombocytosis D75.839 Primary hypertension I10 Hypertension type: primary hypertension Left upper lobe pulmonary nodule R91.1 DVT (deep venous thrombosis) I82.409 Depression F32.9 Carotid artery stenosis I65.29 Dementia F03.90 Prediabetes R73.03 (5) Hypertension Hypertension type: primary hypertension Qualified Code(s): I10 - Essential (primary) hypertension
[2024-05-12 07:52] LABS: Basophils # (auto) 0.03 K/uL (0.00-0.20); Basophils % (auto) 0.3 %; Eosinophils # (auto) 0.34 K/uL (0.00-0.50); Eosinophils % (auto) 3.2 %; Hematocrit (blood only) 25.6 % (42.0-52.0); Hemoglobin 8.1 g/dl (14.0-18.0); Immature Granulocytes % (auto) 0.9 %; Lymphocytes # (auto) 1.21 K/uL (1.20-3.40); Lymphocytes % (auto) 11.3 %; Mean Corpuscular Hemoglobin 18.8 pg (25.0-34.0); Mean Corpuscular Hgb Conc 31.6 g/dL (32.0-36.0); Mean Corpuscular Volume 59.5 fL (80.0-100.0); Monocytes # (auto) 1.31 K/uL (0.11-0.59); Monocytes % (auto) 12.2 %; Neutrophils # (auto) 7.72 K/uL (1.40-6.50); Neutrophils % (auto) 72.1 %; Nucleated RBC # (auto) 0.02 K/uL (0.00-0.12); Nucleated RBC % (auto) 0.2 %; RDW Coefficient of Variation 24.1 % (11.5-14.5); RDW Standard Deviation 41.4 fL (36.4-46.3); White Blood Count 10.71 K/ul (4.8-10.8)
[2024-05-12 08:16] LABS: Calcium 8.2 mg/dl (8.6-10.3); Magnesium 1.8 mg/dl (1.7-2.4); Potassium 3.7 mmol/L (3.5-5.1)
[2024-05-12 08:22] LABS: BUN Creatinine Ratio 27.7 (10-20); Creatinine Clr Calc Pharmacy 70.5 ml/min; Est GFR (Non-African American) 90.6 ml/min
[2024-05-12 08:23] LABS: Mean Platelet Volume 9.3 fL (9.4-12.4); Platelet Count 607 K/uL (130-400)
[2024-05-12 08:24] LABS: Anisocytosis Present; Hypersegmented Neutrophils 1+; Microcytosis Present; Poikilocytosis Present; Polychromasia 2+; Target Cells 2+
[2024-05-12 08:58] LABS: Ferritin 115.6 ng/ml (8-388)
[2024-05-12] MEDS: FERROUS SULFATE 325 MG TAB PO SCH (10:37)
--- NOTE | 2024-05-12 18:07 | Hospitalist Progress Note ---
Date of Service May 12, 2024 Assessment & Plan (1) Aspiration pneumonia: Plan: Patient had an aspiration event overnight on 05/05 where he became acutely short of breath, hypoxic requiring 10 L nasal cannula and had a CT scan of the chest which showed right upper lobe groundglass and consolidative changes as well as areas in the lingula with groundglass changes and small areas of atelectasis in the right lower and left lower lobes. There is also a LUIZ lung nodule measuring 2.8 cm lobulated concerning for lung cancer Appreciate pulmonology consultation Patient now much improved after completing 7 day course of Zosyn, weaned off O2, and using flutter valve, ICS Video swallow performed on 05/10 shows no aspiration-speech therapy counseled him and his /daughter on a slippery diet, remaining upright, not overfeeding and not laying down after eating Increased home Protonix to 40 Mg p.o. twice daily Follow chest imaging as outpt (2) Closed right hip fracture: Plan: Patient was brought to the hospital following a mechanical slip and fall after which he was found to have an acute displaced subcapital right femoral neck fracture Orthopedics consulted and he is now s/p right hip cemented bipolar arthroplasty on 05/04 Hemoglobin chronically low and not significant drop from previous-hemoglobin stable at 8.0 Continue pain management with tramadol as needed, acetaminophen as needed Continue apixaban 2.5 mg twice daily for DVT prophylaxis along with teds and SCDs for 1 month Weightbearing as tolerated per orthopedics Plan to go to rehab [facility] hip precautions Follow-up with orthopedic surgery Dr. Donell Keith in 2 to 3 weeks from the surgery date (3) Anemia: Plan: Patient with thalassemia and chronically low hemoglobin with baseline 8-9, MCV severely microcytic in the 50s Also with acute blood loss anemia with hgb down to 6.8 post op requiring PRBCs x 1 unit transfused Hemoglobin stable at 8 Follow CBC especially given h/o GI bleeding on DOAC in the past and now on Eliquis Checked iron studies nad transferrin sat low at 15%--> start FeSO4 325mg po qAM x 1 month (4) Thrombocytosis: Plan: plts continue to rise today to 600s most likely reactive to iron deficiency anemia, inflammation/stress from PNA replacing with po iron follow CBC (5) Hypertension: Plan: Blood pressure is controlled Continue amlodipine, valsartan (6) Left upper lobe pulmonary nodule: Plan: Outpatient follow-up with pulmonology as planned with PET scan Will ask nurse navigator to help arrange this-scheduled (7) DVT (deep venous thrombosis): Plan: 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 However has been started on low-dose 2.5 mg twice daily apixaban following his surgery and is doing fine with this currently Continue Eliquis 2.5 Mg p.o. twice daily x 1 month Monitor for bleeding and monitor CBC closely (8) Depression: Plan: Stable, continue home fluoxetine, bupropion (9) Carotid artery stenosis: Plan: Status post carotid endarterectomy Continue home aspirin and atorvastatin (10) Dementia: Plan: Continue donepezil (11) Prediabetes: Plan: Last hemoglobin A1c 7 Follows closely with PCP Plan DVT prophylaxis-Eliquis, SCDs, MEGHANN laguerree Disposition-continued stay while awaiting rehab placement, but can downgrade to medical tomorrow if not discharged to SNF Awaiting return call from [facility] but no other SNFs have beds If denied [facility], pt plans to go home with home health Discussed care with at bedside Admission and Anticipated Discharge Date Admission Date: May 03, 2024 Subjective Pt feeling better, having his best day yet as per . Is OOB to chair and worked with PT. Is weaned off O2 to room air. Only coughed up a small amount of sputum.He is moving bowels. Tele with NSR, rates 70-80s Physical Exam Constitutional: WD/WN, vitals as above Respiratory: normal respiratory effort and + cough Auscultation: no crackles, no rhonchi and no wheezes Cardiovascular: Rate/Rhythm: regular rate and regular rhythm Heart Sounds: no murmur Extremities: no edema Gastrointestinal (Abdomen): normal bowel sounds, soft, nontender, no hepatosplenomegaly Musculoskeletal: Extremities: + extremities abnormal to inspection (right hip with dressing intact) Results & Data Results & Data Vital Signs (Past 12 Hours) Vital Signs Temp Pulse Resp BP Pulse Ox O2 Del Method O2 Flow Rate 05/12/24 15:36 36.4 C L 81 18 128/53 L 91 Room Air 05/12/24 11:26 37.0 C 77 18 120/62 93 Room Air 05/12/24 09:41 Nasal Cannula 2 05/12/24 07:34 36.8 C 97 H 20 155/65 H 91 Nasal Cannula 2 Laboratory Results CBC, BMP, iron studies reviewed PG Care Time/CCT Total # of Minutes Spent Total Time Spent with Patient: Total time spent is greater than 50% in coordination of care (as documented) at patient's floor/unit and/or counseling patient: Coding Level of Care Code 65959 SUB INP/OBS CARE 2/35MIN Diagnoses Aspiration pneumonia J69.0 Closed right hip fracture S72.001A Anemia D64.9 Thrombocytosis D75.839 Primary hypertension I10 Hypertension type: primary hypertension Left upper lobe pulmonary nodule R91.1 DVT (deep venous thrombosis) I82.409 Depression F32.9 Carotid artery stenosis I65.29 Dementia F03.90 Prediabetes R73.03 (5) Hypertension Hypertension type: primary hypertension Qualified Code(s): I10 - Essential (primary) hypertension
[2024-05-13 08:06] LABS: Basophils # (auto) 0.04 K/uL (0.00-0.20); Basophils % (auto) 0.4 %; Eosinophils # (auto) 0.24 K/uL (0.00-0.50); Eosinophils % (auto) 2.3 %; Hematocrit (blood only) 27.2 % (42.0-52.0); Hemoglobin 8.3 g/dl (14.0-18.0); Immature Granulocytes # (auto) 0.12 K/uL (0.01-0.20); Immature Granulocytes % (auto) 1.1 %; Lymphocytes # (auto) 0.98 K/uL (1.20-3.40); Lymphocytes % (auto) 9.4 %; Mean Corpuscular Hemoglobin 18.6 pg (25.0-34.0); Mean Corpuscular Hgb Conc 30.5 g/dL (32.0-36.0); Mean Corpuscular Volume 60.9 fL (80.0-100.0); Monocytes # (auto) 0.96 K/uL (0.11-0.59); Monocytes % (auto) 9.2 %; Neutrophils # (auto) 8.12 K/uL (1.40-6.50); Neutrophils % (auto) 77.6 %; RDW Coefficient of Variation 24.4 % (11.5-14.5); RDW Standard Deviation 45.1 fL (36.4-46.3); Red Blood Count 4.47 M/uL (4.70-6.10); White Blood Count 10.46 K/ul (4.8-10.8)
[2024-05-13 08:20] LABS: Platelet Count 695 K/uL (130-400)
[2024-05-13 08:29] LABS: BUN Creatinine Ratio 30.8 (10-20); Calcium 8.3 mg/dl (8.6-10.3); Creatinine Clr Calc Pharmacy 70.5 ml/min; Est GFR (Non-African American) 90.6 ml/min; Potassium 3.8 mmol/L (3.5-5.1)
[2024-05-13 08:49] LABS: Anisocytosis Present; Hypersegmented Neutrophils 1+; Microcytosis Present; Poikilocytosis Present; Polychromasia 2+; Target Cells 1+
[2024-05-13] MEDS: ACETAMINOPHEN 325 MG TAB PO PRN (13:45)
--- NOTE | 2024-05-13 14:49 | Hospitalist Progress Note ---
Date of Service May 13, 2024 Assessment & Plan (1) Aspiration pneumonia: Plan: Patient had an aspiration event overnight on 05/05 where he became acutely short of breath, hypoxic requiring 10 L nasal cannula and had a CT scan of the chest which showed right upper lobe groundglass and consolidative changes as well as areas in the lingula with groundglass changes and small areas of atelectasis in the right lower and left lower lobes. There is also a LUIZ lung nodule measuring 2.8 cm lobulated concerning for lung cancer Appreciate pulmonology consultation Patient now much improved after completing 7 day course of Zosyn, weaned off O2, and using flutter valve, ICS Video swallow performed on 05/10 shows no aspiration-speech therapy counseled him and his /daughter on a slippery diet, remaining upright, not overfeeding and not laying down after eating Increased home Protonix to 40 Mg p.o. twice daily Follow chest imaging as outpt (2) Closed right hip fracture: Plan: Patient was brought to the hospital following a mechanical slip and fall after which he was found to have an acute displaced subcapital right femoral neck fracture Orthopedics consulted and he is now s/p right hip cemented bipolar arthroplasty on 05/04 Hemoglobin chronically low and not significant drop from previous-hemoglobin stable at 8.3 Continue pain management with acetaminophen as needed. Discontinue tramadol as he is no longer taking it and does not need it Continue apixaban 2.5 mg twice daily for DVT prophylaxis along with teds and SCDs for 1 month Weightbearing as tolerated per orthopedics Plan to go to rehab [facility] hip precautions Follow-up with orthopedic surgery Dr. Donell Keith in 2 to 3 weeks from the surgery date Wound appears to be healing well, no drainage. Dressing removed today and will leave open to the air, mary in place (3) Anemia: Plan: Patient with thalassemia and chronically low hemoglobin with baseline 8-9, MCV severely microcytic in the 50s Also with acute blood loss anemia with hgb down to 6.8 post op requiring PRBCs x 1 unit transfused Hemoglobin stable at 8 .3, however with thrombocytosis as below Follow CBC especially given h/o GI bleeding on DOAC in the past and now on Eliquis Checked iron studies and transferrin sat low at 15%--> started FeSO4 325mg po qAM x 1 month (4) Thrombocytosis: Plan: plts continue to rise again today to 695. 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 However has been started on low-dose 2.5 mg twice daily apixaban following his surgery and is doing fine with this currently Continue Eliquis 2.5 Mg p.o. twice daily x 1 month Monitor for bleeding and monitor CBC closely (8) Depression: Plan: Stable, continue home fluoxetine, bupropion (9) Carotid artery stenosis: Plan: Status post carotid endarterectomy Continue home aspirin and atorvastatin (10) Dementia: Plan: Continue donepezil (11) Prediabetes: Plan: Last hemoglobin A1c 7 Follows closely with PCP Plan DVT prophylaxis-Lulu Zepeda TED hose Disposition-continued stay while awaiting rehab placement, but downgrade to medical/surgical unit Awaiting return call from [facility] but no other SNFs have beds If denied [facility], pt plans to go home with home health on Friday Discussed care with at bedside Admission and Anticipated Discharge Date Admission Date: May 03, 2024 Subjective Patient has some pain in the hip and is taking Tylenol. Otherwise his reports that the patient is feeling depressed or desperate today. He really wants to get out of the hospital. Mild cough, no shortness of breath. Did walk 100 feet with physical therapy and feels wiped out. Physical Exam Constitutional: WD/WN, vitals as above Respiratory: normal respiratory effort Auscultation: no crackles, no rhonchi and no wheezes Cardiovascular: Rate/Rhythm: regular rate and regular rhythm Heart Sounds: no murmur Extremities: no edema Gastrointestinal (Abdomen): normal bowel sounds, soft, nontender, no hepatosplenomegaly Musculoskeletal: Extremities: + extremities abnormal to inspection (right hip with dressing removed, wound without erythema or drainage) Results & Data Results & Data Vital Signs (Past 12 Hours) Vital Signs Temp Pulse Pulse Resp BP Pulse Ox O2 Del Method 05/13/24 12:42 36.7 C 85 18 134/65 92 Room Air 05/13/24 11:30 36.6 C 82 16 115/62 94 Room Air 05/13/24 07:41 83 05/13/24 07:41 Nasal Cannula 05/13/24 07:34 36.5 C 81 18 95/61 L 92 Nasal Cannula 05/13/24 02:48 36.3 C L 83 20 140/54 L 90 Nasal Cannula O2 Flow Rate 05/13/24 12:42 05/13/24 11:30 05/13/24 07:41 05/13/24 07:41 2 05/13/24 07:34 2 05/13/24 02:48 Laboratory Results CBC, BMP reviewed PG Care Time/CCT Total # of Minutes Spent Total Time Spent with Patient: Total time spent is greater than 50% in coordination of care (as documented) at patient's floor/unit and/or counseling patient: Coding Level of Care Code 69016 SUB INP/OBS CARE 2/35MIN Diagnoses Aspiration pneumonia J69.0 Closed right hip fracture S72.001A Anemia D64.9 Thrombocytosis D75.839 Primary hypertension I10 Hypertension type: primary hypertension Left upper lobe pulmonary nodule R91.1 DVT (deep venous thrombosis) I82.409 Depression F32.9 Carotid artery stenosis I65.29 Dementia F03.90 Prediabetes R73.03 (5) Hypertension Hypertension type: primary hypertension Qualified Code(s): I10 - Essential (primary) hypertension
--- NOTE | 2024-05-14 02:56 | Communication Note ---
Date of Service: May 14, 2024 Alerted by nursing ~2AM that pt had a fall while in the bathroom. VSS aside from requiring 2L NC which was new for him. Pt examined at bedside; pt's also at bedside. He is alert, oriented, and conversational. He describes that he was standing to urinate when his walker slipped away from him and he slid to the ground. He landed on his buttocks. He did not hit his head. He denies feeling dizzy, SOB, or lightheaded. He denies any new pain. Upon physical examination, his heart was in regular rhythm and rate and lungs CTA. No need for imaging at this time. Encouraged pt to let nursing know if he develops any new symptoms, especially new pain. Resident Activity Tracking Resident Involvement: Resident Care Provided Care Provided: [facility]
[2024-05-14 06:02] LABS: Basophils # (auto) 0.04 K/uL (0.00-0.20); Basophils % (auto) 0.4 %; Eosinophils # (auto) 0.24 K/uL (0.00-0.50); Eosinophils % (auto) 2.2 %; Hematocrit (blood only) 26.5 % (42.0-52.0); Hemoglobin 8.2 g/dl (14.0-18.0); Immature Granulocytes # (auto) 0.14 K/uL (0.01-0.20); Immature Granulocytes % (auto) 1.3 %; Lymphocytes # (auto) 1.36 K/uL (1.20-3.40); Lymphocytes % (auto) 12.4 %; Mean Corpuscular Hemoglobin 18.8 pg (25.0-34.0); Mean Corpuscular Hgb Conc 30.9 g/dL (32.0-36.0); Mean Corpuscular Volume 60.6 fL (80.0-100.0); Monocytes # (auto) 1.01 K/uL (0.11-0.59); Monocytes % (auto) 9.2 %; Neutrophils # (auto) 8.16 K/uL (1.40-6.50); Neutrophils % (auto) 74.5 %; Nucleated RBC # (auto) 0.03 K/uL (0.00-0.12); Nucleated RBC % (auto) 0.3 %; RDW Coefficient of Variation 24.8 % (11.5-14.5); RDW Standard Deviation 45.4 fL (36.4-46.3); Red Blood Count 4.37 M/uL (4.70-6.10); White Blood Count 10.95 K/ul (4.8-10.8)
[2024-05-14 06:12] LABS: BUN Creatinine Ratio 39.4 (10-20); Calcium 8.9 mg/dl (8.6-10.3); Creatinine Clr Calc Pharmacy 64.6 ml/min; Est GFR (African American) 101.3 ml/min; Est GFR (Non-African American) 87.4 ml/min; Potassium 3.7 mmol/L (3.5-5.1)
[2024-05-14 06:36] LABS: Anisocytosis Present; Mean Platelet Volume 9.1 fL (9.4-12.4); Microcytosis Present; Platelet Count 741 K/uL (130-400); Poikilocytosis Present; Polychromasia 2+; Target Cells 1+
--- NOTE | 2024-05-14 08:52 | XRay Report ---
XR chest 1V portable CLINICAL HISTORY: f/u pneumonia COMPARISON STUDY: Chest CT May 05, 2024. Chest radiograph May 08, 2024. FINDINGS: There is no pneumothorax or pleural effusion. Right upper lobe airspace opacity persists. E xtent of opacity has slightly decreased. The previously described left upper lobe nodule is again not ed. No new sites of consolidation are present. Cardiomediastinal silhouette is stable. IMPRESSION: 1. Slight improvement in suspected right upper lobe pneumonia. 2. Redemonstration of the suspicious left upper lobe nodule. ACT 112: Negative or not required by law. Electronically signed by: Remberto Alfonso M.D. 05/14/2024 8:50 AM
--- NOTE | 2024-05-14 10:02 | XRay Report ---
XR hip RT min 2V CLINICAL HISTORY: fall,recent hip replacement TECHNIQUE: 2 views of the right hip and single frontal view of the pelvis were obtained. Comparison: Comparison is made to right hip radiographs 06/03/2024 FINDINGS: Patient is status post total hip arthroplasty with expected postsurgical changes including soft tissu e swelling and subcutaneous emphysema. No acute fractures are seen. IMPRESSION: No acute fractures in this patient recently status post hip arthroplasty. ACT 112: Negative or not required by law. Electronically signed by: Curtis Ochoa M.D. 05/14/2024 10:00 AM
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
[2024-05-15 05:59] LABS: Basophils # (auto) 0.05 K/uL (0.00-0.20); Basophils % (auto) 0.4 %; Eosinophils # (auto) 0.27 K/uL (0.00-0.50); Eosinophils % (auto) 2.4 %; Hematocrit (blood only) 26.8 % (42.0-52.0); Hemoglobin 8.3 g/dl (14.0-18.0); Immature Granulocytes # (auto) 0.09 K/uL (0.01-0.20); Immature Granulocytes % (auto) 0.8 %; Lymphocytes # (auto) 1.39 K/uL (1.20-3.40); Lymphocytes % (auto) 12.4 %; Mean Corpuscular Hemoglobin 18.9 pg (25.0-34.0); Mean Corpuscular Volume 60.9 fL (80.0-100.0); Monocytes # (auto) 0.88 K/uL (0.11-0.59); Monocytes % (auto) 7.9 %; Neutrophils # (auto) 8.49 K/uL (1.40-6.50); Neutrophils % (auto) 76.1 %; RDW Coefficient of Variation 24.5 % (11.5-14.5); RDW Standard Deviation 45.8 fL (36.4-46.3); White Blood Count 11.17 K/ul (4.8-10.8)
[2024-05-15 06:11] LABS: BUN Creatinine Ratio 36.4 (10-20); Calcium 8.4 mg/dl (8.6-10.3); Creatinine Clr Calc Pharmacy 59.5 ml/min; Est GFR (African American) 97.9 ml/min; Est GFR (Non-African American) 84.5 ml/min; Potassium 3.8 mmol/L (3.5-5.1)
[2024-05-15 06:43] LABS: Mean Platelet Volume 8.9 fL (9.4-12.4); Platelet Count 787 K/uL (130-400)
[2024-05-15 07:08] LABS: Hypochromasia Present; Microcytosis Present; Ovalocytes 1+; Polychromasia 1+; Target Cells 1+
[2024-05-15 10:58] LABS: Appearance Urine Clear (Clear); Bacteria Urine Automated None Seen (None Seen); Bilirubin Urine Negative (Negative); Blood Urine Negative (Negative); Cast Urine Automated 0-2 /lpf (0-2); Color Urine Yellow; Epithelial Cell Urine Auto 0-2 /hpf (0-2); Glucose Urine UA Negative (Negative); Ketones Urine Negative (Negative); Leukocyte Esterase Urine Trace (Negative); Nitrite Urine Negative (Negative); Protein Urine 1+ (Negative); RBC Urine Automated 0-2 /hpf (0-2); Specific Gravity Urine 1.018 (1.000-1.030); Urobilinogen Urine Negative (Negative); WBC Urine Automated 0-5 /hpf (0-5)
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
== END 2024-05-15 13:37 | disposition home health service (06) | DRG 521 ==
LOC: ED 12:48 → EDINP 15:17 → SUATTDRO 15:17 → 3E 20:37 → 2S 05-04 00:18 → 3E 05-13 12:23
DX: K21.9 Gastro-esophageal reflux disease without esophagitis; D56.3 Thalassemia minor; W01.0XXA Fall on same level from slipping, tripping and stumbling without subsequent striking against object, initial encounter; Z86.718 Personal history of other venous thrombosis and embolism; J43.9 Emphysema, unspecified; J69.0 Pneumonitis due to inhalation of food and vomit; I73.9 Peripheral vascular disease, unspecified; F32.A Depression, unspecified; Z79.899 Other long term (current) drug therapy; R91.1 Solitary pulmonary nodule; D62 Acute posthemorrhagic anemia; R73.03 Prediabetes; J96.01 Acute respiratory failure with hypoxia; S72.011A Unspecified intracapsular fracture of right femur, initial encounter for closed fracture; Z85.46 Personal history of malignant neoplasm of prostate; I10 Essential (primary) hypertension; F03.90 Unspecified dementia, unspecified severity, without behavioral disturbance, psychotic disturbance, mood disturbance, and anxiety; Z79.82 Long term (current) use of aspirin; Z87.891 Personal history of nicotine dependence

== ENCOUNTER 2024-10-27 12:38 | Inpatient (IN) ==
[2024-10-27 13:38] LABS: Basophils # (auto) 0.03 K/uL (0.00-0.20); Basophils % (auto) 0.3 %; Hematocrit (blood only) 33.9 % (42.0-52.0); Hemoglobin 10.7 g/dl (14.0-18.0); Immature Granulocytes # (auto) 0.06 K/uL (0.01-0.20); Immature Granulocytes % (auto) 0.6 %; Mean Corpuscular Hemoglobin 19.4 pg (25.0-34.0); Mean Corpuscular Hgb Conc 31.6 g/dL (32.0-36.0); Mean Corpuscular Volume 61.5 fL (80.0-100.0); Monocytes # (auto) 0.73 K/uL (0.11-0.59); Monocytes % (auto) 7.2 %; Neutrophils # (auto) 8.99 K/uL (1.40-6.50); Neutrophils % (auto) 88.9 %; RDW Standard Deviation 38.6 fL (36.4-46.3); Red Blood Count 5.51 M/uL (4.70-6.10); White Blood Count 10.11 K/ul (4.8-10.8)
--- NOTE | 2024-10-27 13:50 | XRay Report ---
XR chest 1V portable CLINICAL HISTORY: hypoxia, weakness, hx pna TECHNIQUE: Single frontal radiograph of the chest was obtained. Comparison: Comparison is made to chest radiograph 06/17/2024 and radiation therapy planning chest CT FINDINGS: No lines and tubes are seen. Calcified aortic knob is seen. Left lower lung airspace opacity is seen. Left upper lobe density may represent previously noted mass. No evidence of pleural effusion or pneu mothorax. IMPRESSION: Left lower lung airspace opacity may represent pneumonia. Previously noted left upper lobe mass is pa rtially visualized. ACT 112: Negative or not required by law. Electronically signed by: Curtis Ochoa M.D. 10/27/2024 1:48 PM
[2024-10-27 13:57] LABS: Albumin Globulin Ratio 1.1 (0.9-2); Albumin Level 3.9 gm/dl (3.4-5.0); BUN Creatinine Ratio 29.3 (10-20); Bilirubin,Total 0.5 mg/dl (0.2-1.0); Calcium 9.1 mg/dl (8.6-10.3); Creatinine Clr Calc Pharmacy 52.7 ml/min; Globulin 3.5 gm/dl (2.5-4.0); Magnesium 1.8 mg/dl (1.7-2.4); Potassium 3.7 mmol/L (3.5-5.1); Total Protein 7.4 gm/dl (6.0-8.3)
[2024-10-27 14:00] LABS: Mean Platelet Volume 9.9 fL (9.4-12.4); Platelet Count 281 K/uL (130-400)
[2024-10-27 14:01] LABS: Acanthocytes 1+; Microcytosis Present; Ovalocytes 1+; Target Cells 1+
[2024-10-27 14:03] LABS: Troponin I High Sensitivity 10.1 pg/ml (0-20)
[2024-10-27 14:07] LABS: INR 1.4 (0.9-1.1); Prothrombin Time 15.1 Seconds (9.0-12.0)
--- NOTE | 2024-10-27 14:16 | CT Scan Report ---
CT head/brain wo con CLINICAL HISTORY: weakness, ams Technique: Contiguous axial CT images of the head were acquired from the base of the skull to the jefferson elizabeth without intravenous contrast administration. Images were viewed in brain, subdural [facility] . Automated dose lowering techniques and/or adjustment according to patient size were utilized for this exam. Comparison: None available at the time of this dictation. Findings: Areas of decreased attenuation are present in the periventricular and subcortical white matter bilate rally consistent with small vessel ischemic disease. Generalized cerebral atrophy with commensurate e nlargement of the ventricles, sulci, and cisterns is also present. There is no acute intracranial hem orrhage or evidence of acute territorial infarction. No shift of the midline structures, mass effect, or extra-axial abnormalities are shown. Atherosclerotic calcifications are present in the intracran ial segments of the internal carotid arteries. Encephalomalacia in the left parietal lobe is seen. Imaged portions of the paranasal sinuses and mastoid air cells are clear. The orbits appear normal. Post surgical changes in the right calvarium are again seen. Impression: Postsurgical changes without acute abnormality. ACT 112: Negative or not required by law. Electronically signed by: Curtis Ochoa M.D. 10/27/2024 2:15 PM
[2024-10-27 14:22] LABS: Adenovirus PCR Not Detected (NotDetected); Bordetella parapertussis PCR Not Detected (NotDetected); Bordetella pertussis PCR Not Detected (NotDetected); Chlamydia pneumoniae PCR Not Detected (NotDetected); Coronavirus 229E PCR Not Detected (NotDetected); Coronavirus CoV-2 (COVID19)PCR Not Detected (NotDetected); Coronavirus HKU1 PCR Not Detected (NotDetected); Coronavirus NL63 PCR Not Detected (NotDetected); Coronavirus OC43PCR Not Detected (NotDetected); Human Metapneumovirus PCR Not Detected (NotDetected); Influenza A (H3) PCR DETECTED (NotDetected); Influenza B PCR Not Detected (NotDetected); Mycoplasma pneumoniae PCR Not Detected (NotDetected); Parainfluenza Virus 1 PCR Not Detected (NotDetected); Parainfluenza Virus 2 PCR Not Detected (NotDetected); Parainfluenza Virus 3 PCR Not Detected (NotDetected); Parainfluenza Virus 4 PCR Not Detected (NotDetected); Respiratory Syncytial VirusPCR Not Detected (NotDetected); Rhinovirus/Enterovirus PCR Not Detected (NotDetected)
[2024-10-27] MEDS: OPTIRAY 320 125ml IV ONE (14:59)
--- NOTE | 2024-10-27 15:20 | CT Scan Report ---
CT angio chest PE protocol CLINICAL HISTORY: PE, abn cxr, hx lung ca TECHNIQUE: Multidetector row helical CT of the chest was performed with angiographic protocol. Dodge l and sagittal reformations were obtained. Coronal and sagittal MIPS were obtained from the axial russell a set and were submitted for review. Automated dose lowering techniques and/or adjustment according to patient size were utilized for this exam. CT DOSE: 481.9 mGy.cm Comparison: Comparison is made to CTA chest 05/05/2024 FINDINGS: Lungs and pleura: Emphysema is seen. Consolidation is seen in the lingula. 15 mm nodule left upper lo be is decreased from prior exam where it previously measured 27 mm. Heart and pericardium: Heart size is normal. No pericardial effusion. Vessels: No evidence of pulmonary embolism. Mediastinum and christian: Subcentimeter lymph nodes are seen. Chest wall and lower neck: Unremarkable. Abdomen: A hiatal hernia is seen. 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 There is a r ight renal cyst. Bones: Degenerative changes of the thoracic spine. Old healed rib fractures are seen. IMPRESSION: 1. No evidence of pulmonary embolus. 2. Consolidation in lingula likely represents a focus of pneumonia. 3. Decrease in size of the left upper lobe pulmonary nodule likely representing posttreatment change . 4. Stable emphysema. ACT 112: Negative or not required by law. Electronically signed by: Curtis Ochoa M.D. 10/27/2024 3:19 PM
--- NOTE | 2024-10-27 15:26 | Emergency Department Note ---
Impression & Plan Hypoxia, Generalized weakness, Influenza, Anemia, COPD (chronic obstructive pulmonary disease) ED Provider Note ED Provider Note NAME: JENN ISAACS AGE:84 SEX: Male : 1940 ARRIVES VIA: EMS INFORMANT: Patient ED PROVIDER(s): Chloé Pimentel DO CHIEF COMPLAINT: Weakness, hypoxia HPI: This is an 84-year-old male presents emergency department due to concern for increased weakness, decreased appetite, and hypoxia noted by family at home. Patient's is at bedside and helps provide history. She states patient began feeling ill yesterday with increased weakness and fatigue. She states he did have a slight cough that is nonproductive. He denies nasal congestion, rhinorrhea or fevers. She states this morning he was markedly more weak compared to prior, and at times almost seemed a little confused. They checked his pulse ox as he does have a history of COPD and was diagnosed with lung cancer over the summer. She states his pulse ox had dropped to 89% however then came up. She spoke with her daughter who is an anesthesiologist and due to his history and comorbidities were concerned and called 911. Patient noted to be hypoxic for EMS. Patient does not routinely wear oxygen at home. Patient's grandchildren who live with them and were ill recently. PAST MEDICAL HISTORY:See Below PAST SURGICAL HISTORY:See Below FAMILY HISTORY:See Below SOCIAL HISTORY:See Below HOME MEDICATIONS:See Below ALLERGIES:See Below VITALS:See Below PHYSICAL EXAMINATION: GENERAL: alert, unwell appearing, well nourished, no distress, non-toxic EYE EXAM: normal conjunctiva, PERRL and EOM's grossly intact OROPHARYNX: no exudate, no erythema, lips, buccal mucosa, and tongue normal and mucous membranes are moist NECK: supple, no nuchal rigidity, no adenopathy, non-tender LUNGS: Clear to auscultation. Normal chest wall mechanics, no w/r/r, noted to be hypoxic at 88% - placed on 2 lpm via NC HEART: no murmurs, S1 normal and S2 normal ABDOMEN: abdomen soft, non-tender, normo-active bowel sounds, no masses, no rebound or guarding. BACK: Back is symmetrical on inspection and there is no deformity, no midline tenderness, no CVA tenderness. SKIN: no rashes, petechiae, orbruising UPPER EXTREMITIES: upper extremities are grossly normal. FROM, nml pulses b/l. LOWER EXTREMITIES: No pitting edema. FROM, nml pulses b/l. NEURO EXAM: Normal sensorium, cranial nerves II-XII grossly intact, normal speech, no facial droop,nogross weakness of arms, no gross weakness of legs. Gross sensation intact. No ataxia. Vital Signs: reviewed and remarkable Differential Diagnosis: dehydration, stroke, anemia, hypoglycemia, hyponatremia, hypernatremia, urinary tract infection, pneumonia, bronchitis, sepsis, gastroenteritis, additional abdominal pathology, metabolic abnormalities, as well as others were considered MEDICAL DECISION MAKING: This is an 84-year-old male who presents emergency department due to concern for weakness, and hypoxia noted at home. Patient does have a history of COPD as well as prior lung cancer which was treated. Labs drawn and sent, IV established, EKG and chest x-ray performed at bedside interpreted me and patient monitored on telemetry. He was started on gentle IV fluids. Nasal swab sent for respiratory panel. Patient noted to have influenza A, likely from his grandchildren which are also sick and live in the same household as him. Given patient's comorbidities and advanced age, I suspect this is contributed the patient's symptoms. Due to slightly abnormal chest x-ray, he was sent for CT of the chest additionally. Patient started on Tamiflu. Due to mild hypoxia, and increased weakness, case discussed with the hospitalist team for additional evaluation and management. Patient was given DuoNeb here. He was maintained on oxygen via nasal cannula at 2 L/min. Consultation(s): 1640: Discussed with Dr. Palm, OR hospitalist team, for additional evaluation and mgmt. ER Treatment Provided: See below Diagnostics Interpreted By Me: -ECG: Normal sinus at 88, leftward axis, normal intervals, nonspecific ST/T wave changes -Cardiac Monitoring: An order was placed for continuous cardiac monitoring. The monitor shows a rate of 80 with normal sinus rhythm. -Laboratory studies: As stated above and show below. -Imaging studies: cxr: No cardiomegaly, no wide mediastinum, no pleural effusion, no pulmonary edema, questionable evolving infiltrate on the left Triage Nursing Note Reviewed Prior/Outside Records Reviewed Past Med/Surg History Problem List (Updated 10/30/24 @ 04:41 by Chloé Pimentel DO) Elevated INR History of aspiration pneumonia (05/06/24) Pneumonia Transaminitis Influenza (Acute) Generalized weakness (Acute) Hypoxia (Acute) Primary cancer of left upper lobe of lung (Chronic 06/17/24) Abnormality of pancreatic duct Vitamin D deficiency COPD (chronic obstructive pulmonary disease) (Acute) Tubular adenoma Vitamin B12 deficiency (Acute) Hypertension (Acute) Hyperlipidemia (Acute) Gastroesophageal reflux disease (Acute) Depression (Acute) Carotid artery stenosis (Acute) Anemia (Acute) Adrenal nodule (Acute) Medical History Adrenal nodule Carotid artery stenosis Hyperlipidemia HTN (hypertension) History of colon polyps Aspiration pneumonia Closed fracture of right hip COPD (chronic obstructive pulmonary disease) Hx of congestive heart failure Prediabetes Thalassemia trait, alpha History of aspiration pneumonia (05/06/24) Dementia PAD (peripheral artery disease) PFO (patent foramen ovale) Anemia Lung nodule GERD (gastroesophageal reflux disease) History of prostate cancer Anxiety and depression Brain aneurysm Internal hemorrhoids Diverticulosis Surgical History S/P total right hip arthroplasty (05/05/24) H/O cerebral aneurysm repair History of right-sided carotid endarterectomy History of colonoscopy History of prostate biopsy History of prostatectomy History of cataract surgery History of inguinal hernia repair Family History Mother Stroke Father Stroke Brother Epilepsy Brother Flu Heart disease Brother No problems noted. Brother Heart disease Sister No problems noted. Sister No problems noted. Sister No problems noted. Sister No problems noted. Daughter No problems noted. Daughter No problems noted. Other No family history of adverse response to anesthesia Denies family history of Ovarian cancer Breast cancer Colorectal cancer Social History Smoking Status: Former smoker Tobacco Type: Cigarettes Age Started Using Tobacco: 28; Age Quit Using Tobacco: 80; packs per day: 1; Cigarettes Per Day: 1/2 pack; Second Hand Exposure: No; Do You Dip or Chew Tobacco: No; Hx Alcohol Use: No Hx Substance Use: No Preferred Language: Tamazight Communication Ability: Effective Communication Ability Comment: speaks and understands lao very well. 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; How many Children do You have: 2 Feels Safe at Home: Yes Diet: regular Diet Comment: healthy caffeine: Yes during the past year weight has: remained stable Dental Care, Regularly: Yes Physical Activity Frequency: Daily Seatbelt Use: always Sunscreen Use: No Assistive Devices: Walker Allergies Allergies Allergy/AdvReac Type Severity Reaction Status Date / Time No Known Allergies Allergy Verified 10/18/24 09:50 Home Meds Home Medications Medication Instructions Recorded Confirmed fluoxetine 40 mg capsule (Prozac) 40 mg PO QAM #90 caps 06/30/19 10/29/24 aspirin 81 mg tablet,delayed 81 mg PO QAM 05/31/21 10/29/24 release (Adult Aspirin Regimen) donepezil 10 mg tablet (Aricept) 10 mg PO HS 01/27/22 10/29/24 atorvastatin 80 mg tablet (Lipitor) 80 mg PO QPM 06/17/24 10/29/24 bupropion HCl 300 mg 24 hr tablet, 300 mg PO QAM 06/17/24 10/29/24 extended release (Wellbutrin XL) valsartan 80 mg tablet (Diovan) 80 mg PO BID 06/17/24 10/29/24 mecobalamin (vitamin B12) 500 mcg 500 mcg PO .QOD 06/24/24 10/29/24 chewable tablet cholecalciferol (vitamin D3) 25 100 mcg PO DAILY 08/17/24 10/29/24 mcg (1,000 unit) capsule fluoxetine 20 mg capsule 20 mg PO QAM #90 caps 10/29/24 10/29/24 Previous Rx's Medication Instructions Recorded amlodipine 10 mg tablet 10 mg PO QAM #90 tabs 01/07/24 acetaminophen 325 mg tablet 650 mg (2 x 325 mg) PO Q4H PRN 05/15/24 pain #60 tabs ferrous sulfate 325 mg (65 mg 325 mg PO Q OTHER DAY #30 tabs 08/17/24 iron) tablet,delayed release amoxicillin 500 mg tablet 2,000 mg (4 x 500 mg) PO ONCE #4 09/24/24 tabs pantoprazole 40 mg tablet,delayed 40 mg PO DAILY #90 tabs 10/11/24 release (Protonix) amoxicillin 875 mg-potassium 1 tab PO BID #10 tabs 10/28/24 clavulanate 125 mg tablet oseltamivir 75 mg capsule (Tamiflu) 75 mg PO BID 4 days #8 caps 10/28/24 Results & Data (ED) Vital Signs Vital Signs - 24 hr 10/27/24 12:38 10/27/24 14:44 10/27/24 15:30 Temperature 37.0 C 36.6 C Temperature Source Oral Oral Pulse Rate 94 H 84 Pulse Rate [Apical] 79 Pulse Rhythm Regular Pulse Strength Normal Respiratory Rate 24 18 Respiratory Effort / Characteristics Non-Labored Spontaneous Non-Labored Spontaneous Respiratory Depth Normal Normal Respiratory Pattern Regular Regular Blood Pressure 165/64 H Blood Pressure [Right Arm] 158/63 H Blood Pressure Mean 97 Blood Pressure Mean [Right Arm] 94 Blood Pressure Position Sitting Pulse Oximetry 92 96 Oxygen Delivery Method Room Air Room Air Oxygen Flow Rate Sepsis Recent Fever Within 48 Hours No Sepsis New/Unexplained Change in Mental Status N/A Sepsis Action Taken by Nursing No Action Required 10/27/24 16:07 10/27/24 17:52 10/27/24 18:00 Temperature 36.9 C Temperature Source Oral Pulse Rate 78 Pulse Rate [Apical] 78 88 Pulse Rhythm Pulse Strength Respiratory Rate 24 18 Respiratory Effort / Characteristics Non-Labored Spontaneous Non-Labored Spontaneous Respiratory Depth Normal Normal Respiratory Pattern Regular Regular Blood Pressure Blood Pressure [Right Arm] 142/53 H 147/63 H Blood Pressure Mean Blood Pressure Mean [Right Arm] 82 91 Blood Pressure Position Pulse Oximetry 2 L 97 Oxygen Delivery Method Nasal Cannula Nasal Cannula Oxygen Flow Rate 2 Sepsis Recent Fever Within 48 Hours Sepsis New/Unexplained Change in Mental Status Sepsis Action Taken by Nursing Laboratory Data 10/28/24 07:02 10/28/24 07:02 Lab Results 10/27/24 10/27/24 Range/Units 12:49 14:48 WBC 10.11 (4.8-10.8) K/ul RBC 5.51 (4.70-6.10) M/uL Hgb 10.7 L (14.0-18.0) g/dl Hct 33.9 L (42.0-52.0) % MCV 61.5 L (80.0-100.0) fL MCH 19.4 L (25.0-34.0) pg MCHC 31.6 L (32.0-36.0) g/dL RDW Std Deviation 38.6 (36.4-46.3) fL RDW Coeff of Sundeep 19.0 H (11.5-14.5) % Plt Count 281 (130-400) K/uL MPV 9.9 (9.4-12.4) fL Immature Gran % (Auto) 0.6 % Neut % (Auto) 88.9 % Lymph % (Auto) 3.0 % Coleman % (Auto) 7.2 % Eos % (Auto) 0.0 % Baso % (Auto) 0.3 % Neut # (Auto) 8.99 H (1.40-6.50) K/uL Lymph # (Auto) 0.30 L (1.20-3.40) K/uL Coleman # (Auto) 0.73 H (0.11-0.59) K/uL Eos # (Auto) 0.00 (0.00-0.50) K/uL Baso # (Auto) 0.03 (0.00-0.20) K/uL Immature Gran # (Auto) 0.06 (0.01-0.20) K/uL Microcytosis Present Target Cells 1+ Ovalocytes 1+ Acanthocytes (Spur) 1+ PT 15.1 H (9.0-12.0) Seconds INR 1.4 H (0.9-1.1) Sodium 138 (136-145) mmol/L Potassium 3.7 (3.5-5.1) mmol/L Chloride 104 (98-107) mmol/L Carbon Dioxide 25 (21-32) mmol/L Anion Gap 9 (3-11) BUN 24 H (6-23) mg/dl Creatinine 0.82 (0.6-1.4) mg/dl Est Cr Clr Drug Dosing 52.7 ml/min eGFR 87.16 BUN/Creatinine Ratio 29.3 H (10-20) Glucose 137 H (70-99(Fasting)) mg/dl Calcium 9.1 (8.6-10.3) mg/dl Magnesium 1.8 (1.7-2.4) mg/dl Total Bilirubin 0.5 (0.2-1.0) mg/dl AST 70 H (13-39) U/L ALT 67 H (7-52) U/L Alkaline Phosphatase 62 (34-104) U/L Troponin I High Sens 10.1 (0-20) pg/ml Total Protein 7.4 (6.0-8.3) gm/dl Albumin 3.9 (3.4-5.0) gm/dl Globulin 3.5 (2.5-4.0) gm/dl Albumin/Globulin Ratio 1.1 (0.9-2) Lipase 16 (11-82) U/L Urine Color Yellow Urine Appearance Clear (Clear) Urine pH 5.0 (4.5-7.5) Ur Specific [place] 1.016 (1.000-1.030) Urine Protein 2+ H (Negative) Urine Glucose (UA) Negative (Negative) Urine Ketones Negative (Negative) Urine Blood 2+ H (Negative) Urine Nitrite Negative (Negative) Urine Bilirubin Negative (Negative) Urine Urobilinogen Negative (Negative) Ur Leukocyte Esterase Negative (Negative) Urine WBC (Auto) 0-5 (0-5) /hpf Urine RBC (Auto) 0-2 (0-2) /hpf U Hyaline Cast (Auto) 3-5 H (0-2) /lpf U Epithel Cells (Auto) 0-2 (0-2) /hpf Urine Bacteria (Auto) None Seen (None Seen) Adenovirus (PCR) Not Detected (NotDetected) B. pertussis DNA (PCR) Not Detected (NotDetected) B.parapertussis DNA PCR Not Detected (NotDetected) C. pneumoniae DNA (PCR) Not Detected (NotDetected) Coronavirus OC43 (PCR) Not Detected (NotDetected) Coronavirus HKU1 (PCR) Not Detected (NotDetected) Coronavirus 229E (PCR) Not Detected (NotDetected) SARS-CoV-2 (PCR) Not Detected (NotDetected) Coronavirus NL63 (PCR) Not Detected (NotDetected) Human Metapneumovir PCR Not Detected (NotDetected) Influenza A (H3) PCR DETECTED A (NotDetected) Influenza Type B (PCR) Not Detected (NotDetected) M. pneumoniae (PCR) Not Detected (NotDetected) Parainfluenza 1 (PCR) Not Detected (NotDetected) Parainfluenza 2 (PCR) Not Detected (NotDetected) Parainfluenza 3 (PCR) Not Detected (NotDetected) Parainfluenza 4 (PCR) Not Detected (NotDetected) RSV (PCR) Not Detected (NotDetected) Entero/Rhino (PCR) Not Detected (NotDetected) Administered Medications Discontinued Medications Albuterol (Albut/Ipratrop 3mg/0.5mg Neb 3 Ml Vial) 3 ml NEB NOW STA; Protocol Stop: 10/27/24 16:48 Last Admin: 10/27/24 18:32 Dose: 3 ml Documented By: ALETHEA Amlodipine Besylate (Amlodipine Besylate 5 Mg Tab) 10 mg PO [facility] Stop: 11/26/24 20:04 Last Admin: 10/28/24 07:44 Dose: 10 mg Documented By: Admin: 10/27/24 20:56 Dose: 10 mg Documented By: TORIE Aspirin (Aspirin 81 Mg Ectab) 81 mg PO [facility] Stop: 11/26/24 20:04 Last Admin: 10/28/24 07:44 Dose: 81 mg Documented By: Admin: 10/27/24 20:57 Dose: 81 mg Documented By: TORIE Bupropion HCl (Bupropion Xl 300 Mg Tabcr) 300 mg PO [facility] Stop: 11/26/24 20:04 Last Admin: 10/28/24 07:44 Dose: 300 mg Documented By: Admin: 10/27/24 20:58 Dose: 300 mg Documented By: TORIE Cyanocobalamin (Cyanocobalamin (B-12) 500 Mcg Tablet) 500 mcg PO Q2D@0900 [facility] Stop: 11/26/24 20:14 Last Admin: 10/27/24 20:56 Dose: 500 mcg Documented By: TORIE Donepezil HCl (Donepezil Hcl 10 Mg Tab) 10 mg PO [facility] Stop: 11/26/24 20:59 Last Admin: 10/27/24 20:59 Dose: 10 mg Documented By: TORIE Ferrous Sulfate (Ferrous Sulfate 325 Mg Tab) 325 mg PO Q2D@0900 [facility] Stop: 11/26/24 20:04 Last Admin: 10/27/24 20:57 Dose: 325 mg Documented By: TORIE Fluoxetine HCl (Fluoxetine Hcl 20 Mg Cap) 40 mg PO [facility] Stop: 11/26/24 20:04 Last Admin: 10/27/24 20:59 Dose: Not Given Documented By: TORIE Fluoxetine HCl (Fluoxetine Hcl 20 Mg Cap) 60 mg PO QAM [facility] Stop: 11/26/24 20:44 Last Admin: 10/28/24 07:44 Dose: 60 mg Documented By: Admin: 10/27/24 20:55 Dose: 60 mg Documented By: TORIE Sodium Chloride (Nss) 500 mls @ 999 mls/hr IV .Q31M ONE Stop: 10/27/24 15:52 Last Infusion: 10/27/24 16:04 Dose: Infused Documented By: Admin: 10/27/24 15:33 Dose: 999 mls/hr Documented By: ALETHEA Sodium Chloride (Nss) 1,000 mls @ 125 mls/hr IV .Q8H [facility] Stop: 10/27/24 23:29 Last Infusion: 10/28/24 02:13 Dose: Infused Documented By: Admin: 10/27/24 16:07 Dose: 125 mls/hr Documented By: JOSE M Ceftriaxone Sodium (Rocephin) 2,000 mg in 50 mls @ 100 mls/hr IV ONE ONE Stop: 10/27/24 18:44 Last Infusion: 10/27/24 19:26 Dose: Infused Documented By: Admin: 10/27/24 18:32 Dose: 100 mls/hr Documented By: ALETHEA Ceftriaxone Sodium (Rocephin) 2,000 mg in 50 mls @ 100 mls/hr IV Q24H [facility] Stop: 11/01/24 11:59 Last Infusion: 10/28/24 14:41 Dose: Infused Documented By: Admin: 10/28/24 13:32 Dose: 100 mls/hr Documented By: DEQUAN Ioversol (Optiray 320 125ml) 120 ml IV ONCE ONE Stop: 10/27/24 14:59 Last Admin: 10/27/24 14:59 Dose: 120 ml Documented By: ANUP Oseltamivir Phosphate (Oseltamivir Phosphate 75 Mg Cap) [address] [facility]; Protocol Stop: 10/27/24 15:24 Last Admin: 10/27/24 15:33 Dose: 75 mg Documented By: ALETHEA Oseltamivir Phosphate (Oseltamivir Phosphate 75 Mg Cap) 75 mg PO BID [facility]; Protocol Stop: 11/02/24 13:09 Last Admin: 10/28/24 13:32 Dose: 75 mg Documented By: DEQUAN Pantoprazole Sodium (Pantoprazole 40 Mg Tab) 40 mg PO DAILY [facility] Stop: 11/26/24 20:04 Last Admin: 10/28/24 07:45 Dose: 40 mg Documented By: Admin: 10/27/24 20:58 Dose: 40 mg Documented By: TORIE Potassium Chloride (Potassium Chloride Crtab 20 Meq Tabcr) 20 meq PO NOW [facility] Stop: 10/28/24 08:23 Last Admin: 10/28/24 09:20 Dose: 20 meq Documented By: DEQUAN Valsartan (Valsartan 80 Mg Tab) 80 mg PO BID [facility] Stop: 11/26/24 20:59 Last Admin: 10/28/24 07:45 Dose: 80 mg Documented By: Admin: 10/27/24 20:58 Dose: 80 mg Documented By: EMB Imaging Data Radiologist's Impression: Chest X-Ray 10/27/24 13:12 XR chest 1V portable CLINICAL HISTORY: hypoxia, weakness, hx pna TECHNIQUE: Single frontal radiograph of the chest was obtained. Comparison: Comparison is made to chest radiograph 06/17/2024 and radiation therapy planning chest CT 06/28/2024 FINDINGS: No lines and tubes are seen. Calcified aortic knob is seen. Left lower lung airspace opacity is seen. Left upper lobe density may represent previously noted mass. No evidence of pleural effusion or pneumothorax. IMPRESSION: Left lower lung airspace opacity may represent pneumonia. Previously noted left upper lobe mass is partially visualized. ACT 112: Negative or not required by law. Electronically signed by: Curtis Ochoa M.D. 10/27/2024 1:[address] 10/27/24 13:12 CT head/brain wo con CLINICAL HISTORY: weakness, ams Technique: Contiguous axial CT images of the head were acquired from the base of the skull to the vertex without intravenous contrast administration. Images were viewed in brain, subdural and bone windows. Automated dose lowering techniques and/or adjustment according to patient size were utilized for this exam. Comparison: None available at the time of this dictation. Findings: Areas of decreased attenuation are present in the periventricular and subcortical white matter bilaterally consistent with small vessel ischemic disease. Generalized cerebral atrophy with commensurate enlargement of the ventricles, sulci, and cisterns is also present. There is no acute intracranial hemorrhage or evidence of acute territorial infarction. No shift of the midline structures, mass effect, or extra-axial abnormalities are shown. Atherosclerotic calcifications are present in the intracranial segments of the internal carotid arteries. Encephalomalacia in the left parietal lobe is seen. Imaged portions of the paranasal sinuses and mastoid air cells are clear. The orbits appear normal. Post surgical changes in the right calvarium are again seen. Impression: Postsurgical changes without acute abnormality. ACT 112: Negative or not required by law. Electronically signed by: Curtis Ochoa M.D. 10/27/2024 2:15 PM Chest CTA 10/27/24 14:19 CT angio chest PE protocol CLINICAL HISTORY: PE, abn cxr, hx lung ca TECHNIQUE: Multidetector row helical CT of the chest was performed with angiographic protocol. Coronal and sagittal reformations were obtained. Coronal and sagittal MIPS were obtained from the axial data set and were submitted for review. Automated dose lowering techniques and/or adjustment according to patient size were utilized for this exam. CT DOSE: 481.9 mGy.cm Comparison: Comparison is made to CTA chest 05/05/2024 FINDINGS: Lungs and pleura: Emphysema is seen. Consolidation is seen in the lingula. 15 mm nodule left upper lobe is decreased from prior exam where it previously measured 27 mm. Heart and pericardium: Heart size is normal. No pericardial effusion. Vessels: No evidence of pulmonary embolism. Mediastinum and christian: Subcentimeter lymph nodes are seen. Chest wall and lower neck: Unremarkable. Abdomen: A hiatal hernia is seen. 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 There is a right renal cyst. Bones: Degenerative changes of the thoracic spine. Old healed rib fractures are seen. IMPRESSION: 1. No evidence of pulmonary embolus. 2. Consolidation in lingula likely represents a focus of pneumonia. 3. Decrease in size of the left upper lobe pulmonary nodule likely representing posttreatment change. 4. Stable emphysema. ACT 112: Negative or not required by law. Electronically signed by: Curtis Ochoa M.D. 10/27/2024 3:19 PM Discharge Plan Visit Data Chief Complaint: Illness ED Provider: Chloé Pimentel Discharge Problem: Hypoxia, Generalized weakness, Influenza, Anemia, COPD (chronic obstructive pulmonary disease) Patient Disposition: Admitted As Inpatient Discharge Instructions Interventions: ED Discharge Assessment Last Done: 10/28/24 02:09
[2024-10-27] MEDS: OSELTAMIVIR PHOSPHATE 75 MG CAP PO STA (15:33)
[2024-10-27] MEDS: SODIUM CHLORIDE 0.9% 500 ML IV ONE (15:33)
[2024-10-27 15:48] LABS: Appearance Urine Clear (Clear); Bacteria Urine Automated None Seen (None Seen); Bilirubin Urine Negative (Negative); Blood Urine 2+ (Negative); Color Urine Yellow; Epithelial Cell Urine Auto 0-2 /hpf (0-2); Glucose Urine UA Negative (Negative); Ketones Urine Negative (Negative); Leukocyte Esterase Urine Negative (Negative); Nitrite Urine Negative (Negative); Protein Urine 2+ (Negative); RBC Urine Automated 0-2 /hpf (0-2); Specific Gravity Urine 1.016 (1.000-1.030); Urobilinogen Urine Negative (Negative); WBC Urine Automated 0-5 /hpf (0-5)
[2024-10-27] MEDS: SODIUM CHLORIDE 0.9% 1,000 ML IV SCH (16:07)
--- NOTE | 2024-10-27 16:36 | History & Physical Report ---
Date of Service October 27, 2024 Assessment & Plan (1) Pneumonia: Plan: patient with weakness, fatigue, fever, cough, intermittent dizziness x 1 day history of small cell lung cancer, COPD, and known history of aspiration pneumonia CXR showing Left lower lobe opacity concerning for pneumonia, CTA showing focal left lower lobe pneumonia Biofire positive for influenza A - no leukocytosis, VSS ED course: Tamiflu, duoneb - MRSA swab ordered; if positive will add vancomycin - will start Rocephin - continue Tamiflu course for total 5 days - droplet precautions - incentive spirometry + flutter valve - promote oral hydration and Tylenol prn - monitor on tele with hypoxia - Consult to Dr. Boyle as patient follows with outpatient and requested (2) Influenza: Plan: see above (3) Hypoxia: Plan: 89 on RA -> 2 L NC 2/2 above - denies CP, EKG showing no ST changes - Expect to improve with treatment above - wean O2 as tolerated (4) Transaminitis: Plan: Has had intermittently in the past Mild - AST 70, ALT 67, INR 1.4 - Is on statin but has used for many years; will hold statin - Has taken Tylenol for fever - No NSAID use - no alcohol use Repeat CMP in morning, recommend repeat in outpatient setting in approximately 2 weeks (5) Generalized weakness: Plan: 2/2 influenza A expect to resolve with treatment above If weakness persists, can consider PT/OT evals (6) Primary cancer of left upper lobe of lung: Plan: 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, was to have CT scan next week to reassess CTA admission showing decrease in size of left upper lobe pulm nodule stable (7) Anemia: Plan: history of thalassemia trait, alpha - Hemoglobin improved from baseline - Continue home iron supplement (8) History of aspiration pneumonia: Plan: Aspiration precautions Patient is to have supervised meals at all times with nursing or present Soft, easy to chew diet ordered (9) COPD (chronic obstructive pulmonary disease): Plan: Noted history of however does not use any inhalers at home consult pulm as above Plan Chronic stable diagnoses: Dementia - continue Aricept HTN - continue valsartan and amlodipine depression - continue fluoxetine and Wellbutrin GERD - continue pantoprazole CAD/PAD - holding statin as above VTE ppx: SCDs, history of DVT that was previously anticoagulated which resulted in GI bleed, defer chemical PPx in setting of anemia Diet: heart healthy, soft easy to chew Dispo:med/tele Admission and Anticipated Discharge Date Admission Date: 10/27/24 History of Present Illness Chief Complaint: illness Primary Care Provider: Raffi Stout MD Patient is an 84-year-old male with a past medical history of thalassemia trait, small cell lung cancer s/p radiation, dementia, PAD, CAD s/p right carotid endarterectomy, depression, GERD, hypertension, prostate cancer s/p prostatectomy, COPD, DVT, GI bleed. Patient was seen at bedside with present. She stated that yesterday when he got up and was walking around midday she noticed that he was weak, fatigued, and that his legs were like "noodles ". She also noticed a fever last evening and gave him Tylenol. He typ ically ambulates with a cane at baseline and moves around the house without difficulty. He has used a walker since the weakness yesterday. When she took him to his family doctor this morning they recommended that he come to the ER. He had an O2 sat of 89% on room air. He does not use oxygen at baseline. He has had a dry cough since yesterday. He also complains of intermittent dizziness. He stated that he has had decrease in p.o. intake for the past 24 hours. Patient's also states he has not had loose bowel movements to her knowledge but has been going a lot more frequently in the past 24 hours. Patient denies sputum production, dyspnea, dyspnea on exertion, chest pain, abdominal pain, nausea, vomiting, diarrhea, constipation, numbness, tingling. In regards to newly found transaminitis, patient denies taking NSAIDs. He has been on a long-term statin with no history of transaminitis. Denies any alcohol use. Patient quit smoking about 2 years ago. He does not use oxygen at baseline. Does have a history of prediabetes. He did not take his home medications this morning. Patient made decision with and daughter present via phone. Spoke to patient's daughter who is a physician on the phone. She stated that he has a history of aspiration pneumonia, he should be on aspiration precautions and someone should be in the room to help any at all times. He also often gets confused at night when in the hospital and is at risk for falls, would like him to be on fall precautions. She would really like for his valet cashier Dr. Kwong to be involved with his care as he follows with him closely. he also has a history of DVT. Allergies Allergy/AdvReac Type Severity Reaction Status Date / Time No Known Allergies Allergy Verified 10/18/24 09:50 Home Medications Medication Instructions Recorded Confirmed Type fluoxetine 20 mg capsule 20 mg PO QAM #90 caps 06/30/19 10/27/24 History fluoxetine 40 mg capsule (Prozac) 40 mg PO QAM #90 caps 06/30/19 10/27/24 History aspirin 81 mg tablet,delayed 81 mg PO QAM 05/31/21 10/27/24 History release (Adult Aspirin Regimen) donepezil 10 mg tablet (Aricept) 10 mg PO HS 01/27/22 10/27/24 History amlodipine 10 mg tablet 10 mg PO QAM #90 tabs 01/07/24 10/27/24 Rx acetaminophen 325 mg tablet 650 mg (2 x 325 mg) PO Q4H PRN 05/15/24 10/27/24 Rx pain #60 tabs atorvastatin 80 mg tablet (Lipitor) 80 mg PO QPM 06/17/24 10/27/24 History bupropion HCl 300 mg 24 hr tablet, 300 mg PO QAM 06/17/24 10/27/24 History extended release (Wellbutrin XL) valsartan 80 mg tablet (Diovan) 80 mg PO BID 06/17/24 10/27/24 History mecobalamin (vitamin B12) 500 mcg 500 mcg PO .QOD 06/24/24 10/27/24 History chewable tablet cholecalciferol (vitamin D3) 25 100 mcg PO DAILY 08/17/24 10/27/24 History mcg (1,000 unit) capsule ferrous sulfate 325 mg (65 mg 325 mg PO Q OTHER DAY #30 tabs 08/17/24 10/27/24 Rx iron) tablet,delayed release amoxicillin 500 mg tablet 2,000 mg (4 x 500 mg) PO ONCE #4 09/24/24 10/27/24 Rx tabs pantoprazole 40 mg tablet,delayed 40 mg PO DAILY #90 tabs 10/11/24 10/27/24 Rx release (Protonix) Past Med/Surg History Problem List (Updated 10/27/24 @ 17:54 by Maria Del Carmen Begum PA-C) History of aspiration pneumonia (05/06/24) Pneumonia Transaminitis Influenza (Acute) Generalized weakness (Acute) Hypoxia (Acute) Primary cancer of left upper lobe of lung (Chronic 06/17/24) Abnormality of pancreatic duct Vitamin D deficiency COPD (chronic obstructive pulmonary disease) Tubular adenoma Vitamin B12 deficiency (Acute) Hypertension (Acute) Hyperlipidemia (Acute) Gastroesophageal reflux disease (Acute) Depression (Acute) Carotid artery stenosis (Acute) Anemia (Acute) Adrenal nodule (Acute) Medical History Adrenal nodule Carotid artery stenosis Hyperlipidemia HTN (hypertension) History of colon polyps Aspiration pneumonia Closed fracture of right hip COPD (chronic obstructive pulmonary disease) Hx of congestive heart failure Prediabetes Thalassemia trait, alpha History of aspiration pneumonia (05/06/24) Dementia PAD (peripheral artery disease) PFO (patent foramen ovale) Anemia Lung nodule GERD (gastroesophageal reflux disease) History of prostate cancer Anxiety and depression Brain aneurysm Internal hemorrhoids Diverticulosis Surgical History S/P total right hip arthroplasty (05/05/24) H/O cerebral aneurysm repair History of right-sided carotid endarterectomy History of colonoscopy History of prostate biopsy History of prostatectomy History of cataract surgery History of inguinal hernia repair Family History Mother Stroke Father Stroke Brother Epilepsy Brother Flu Heart disease Brother No problems noted. Brother Heart disease Sister No problems noted. Sister No problems noted. Sister No problems noted. Sister No problems noted. Daughter No problems noted. Daughter No problems noted. Other No family history of adverse response to anesthesia Denies family history of Ovarian cancer Breast cancer Colorectal cancer Social History Smoking Status: Former smoker Tobacco Type: Cigarettes Age Started Using Tobacco: 28; Age Quit Using Tobacco: 80; packs per day: 1; Cigarettes Per Day: 1/2 pack; Second Hand Exposure: No; Do You Dip or Chew Tobacco: No; Hx Alcohol Use: No Hx Substance Use: No Preferred Language: Faroese Communication Ability: Effective Communication Ability Comment: speaks and understands maori very well. Visual Impairment: No Limitations Hearing Ability: Normal Leadership Development Instructor Required: No Beliefs That Will Affect Care: None marital status: Current Living Situation: Spouse and Family Current Living Situation Comment: Lives with at their Daughter and Son-in-laws home. 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 Non-toxic appearing. HEENT- EOMI, mucous membranes dry. Hearing grossly intact. Heart-normal S1 and S2. No murmurs, rubs or gallops. Lungs-decreased LLL, no respiratory distress, no accessory muscle use. Abdomen-normal bowel sounds and soft. No ascites noted. Non-tender. Extremities- no clubbing, cyanosis, or edema. Rheumatologic-decreased range of motion. Psychiatric-normal affect. Results & Data Results & Data Vital Signs (Past 12 Hours) Vital Signs Temp Pulse Pulse Resp BP BP Pulse Ox 10/27/24 16:07 36.9 C 78 24 142/53 H 2 L 10/27/24 15:30 36.6 C 79 18 158/63 H 96 10/27/24 14:44 84 10/27/24 12:38 37.0 C 94 H 24 165/64 H 92 O2 Del Method 10/27/24 16:07 Nasal Cannula 10/27/24 15:30 Room Air 10/27/24 14:44 10/27/24 12:38 Room Air Laboratory Results Reviewed CBC, PT/INR, CMP, BioFire, UA Diagnostic Findings reviewed head CT, head CT, chest x-ray ECG Additional Comments: NSR Code Status & VTE Plan Code Status full code VTE Prophylaxis Plan VTE Prophylaxis will be ordered: Yes Supervising Physician Co-Signing Physician Notes Patient seen and examined, chart reviewed, case discussed with Maria Del Carmen Begum PA-C and I agree with the assessment and plan as above except as otherwise noted Labs and images reviewed 84-year-old male w hx SCLC, dementia, COPD, B12 deficiency who prsents with hypoxia, weakness, dry cough of 1 day. +Flu A positive. CXR ?LL PNA, CT confirms LL consolidative PNA. No leukocytosis. Given consolidative focal LLL PNA will treat for superimposed bacterial PNA. MRSA nare ordered, +rocephin at this time. If MRSA+ than --> +vancomycin, Tamiflu continued for flu a sx onset within last 36 hours. Follows w/ Dr. Boyle for lung cancer and COPD, family requests pulm consultation while inpatient which has been placed. Mild transaminitis, has only taken 1 tylenol and no ETOH use. Statin held. CMP repeated for AM. No evidence of obstruction. Has had mild intermittent transmanitis in the past. At bedside nondistressed, comfortable on 2-3L NC. Lungs diminished but clear. Flutter valve, incentive spirometry continued. Aspiration precautions, please do not have patient eat alone due to history of recurrent aspiration will need assistance with feeding and aspiration precautions. Agree w/ above. PG Care Time/CCT Total # of Minutes Spent Total Time Spent with Patient: Total time spent is greater than 50% in coordination of care (as documented) at patient's floor/unit and/or counseling patient: Coding Level of Care Code 54374 INT INP/OBS CARE 375MIN Diagnoses Pneumonia J18.9 Influenza J11.1 Hypoxia R09.02 Transaminitis R74.01 Generalized weakness R53.1 Primary cancer of left upper lobe of lung C34.12 Anemia D64.9 History of aspiration pneumonia Z87.01 COPD (chronic obstructive pulmonary disease) J44.9
[2024-10-27] MEDS: ALBUT/IPRATROP 3MG/0.5MG NEB 3 ML VIAL NEB STA (18:32)
[2024-10-27] MEDS: cefTRIAXone SODIUM 2,000 MG/50 ML BAG IV ONE (18:32)
[2024-10-27] MEDS ORDERED: FLUoxetine HCL 20 MG CAP PO SCH (20:05)
[2024-10-27] MEDS ORDERED: ONDANSETRON INJ 2 MG/ML 2 ML VIAL IV PRN (20:05)
[2024-10-27] MEDS ORDERED: ACETAMINOPHEN 325 MG TAB PO PRN (20:05)
[2024-10-27] MEDS: FLUoxetine HCL 20 MG CAP PO SCH ×2 (20:55→20:59)
[2024-10-27] MEDS: amLODIPine BESYLATE 5 MG TAB PO SCH (20:56)
[2024-10-27] MEDS: CYANOCOBALAMIN (B-12) 500 MCG TABLET PO SCH (20:56)
[2024-10-27] MEDS: ASPIRIN 81 MG ECTAB PO SCH (20:57)
[2024-10-27] MEDS: FERROUS SULFATE 325 MG TAB PO SCH (20:57)
[2024-10-27] MEDS: PANTOprazole 40 MG TAB PO SCH (20:58)
[2024-10-27] MEDS: buPROPion XL 300 MG TABCR PO SCH (20:58)
[2024-10-27] MEDS: VALSARTAN 80 MG TAB PO SCH (20:58)
[2024-10-27] MEDS: DONEPEZIL HCL 10 MG TAB PO SCH (20:59)
[2024-10-28 07:42] LABS: Basophils # (auto) 0.02 K/uL (0.00-0.20); Basophils % (auto) 0.2 %; Hematocrit (blood only) 30.2 % (42.0-52.0); Hemoglobin 9.5 g/dl (14.0-18.0); Immature Granulocytes # (auto) 0.05 K/uL (0.01-0.20); Immature Granulocytes % (auto) 0.5 %; Lymphocytes # (auto) 0.93 K/uL (1.20-3.40); Lymphocytes % (auto) 8.9 %; Mean Corpuscular Hemoglobin 19.3 pg (25.0-34.0); Mean Corpuscular Hgb Conc 31.5 g/dL (32.0-36.0); Mean Corpuscular Volume 61.5 fL (80.0-100.0); Monocytes # (auto) 0.89 K/uL (0.11-0.59); Monocytes % (auto) 8.5 %; Neutrophils # (auto) 8.57 K/uL (1.40-6.50); Neutrophils % (auto) 81.9 %; RDW Coefficient of Variation 18.3 % (11.5-14.5); RDW Standard Deviation 38.8 fL (36.4-46.3); Red Blood Count 4.91 M/uL (4.70-6.10); White Blood Count 10.46 K/ul (4.8-10.8)
[2024-10-28 07:51] VITALS: RESP 18; O2SAT 93
[2024-10-28 07:52] LABS: Platelet Count 242 K/uL (130-400)
[2024-10-28 08:05] LABS: Hypochromasia Present; Microcytosis Present; Ovalocytes 1+
[2024-10-28 08:19] LABS: Albumin Globulin Ratio 1.1 (0.9-2); Albumin Level 3.2 gm/dl (3.4-5.0); BUN Creatinine Ratio 39.7 (10-20); Bilirubin,Total 0.4 mg/dl (0.2-1.0); Calcium 8.5 mg/dl (8.6-10.3); Creatinine Clr Calc Pharmacy 68.6 ml/min; Magnesium 1.9 mg/dl (1.7-2.4); Potassium 3.3 mmol/L (3.5-5.1); Total Protein 6.2 gm/dl (6.0-8.3)
[2024-10-28] MEDS: POTASSIUM CHLORIDE CRTAB 20 MEQ TABCR PO STA (09:20)
[2024-10-28 11:58] VITALS: TEMP 98.4
[2024-10-28] MEDS ORDERED: Nursing to Pharmacy Communication SCH (12:00)
[2024-10-28 13:13] LABS: INR 1.4 (0.9-1.1); Prothrombin Time 15.1 Seconds (9.0-12.0)
--- NOTE | 2024-10-28 13:14 | Pulmonary Consultation ---
Date of Consultation October 28, 2024 Assessment & Plan (1) Influenza: (2) Pneumonia: (3) Primary cancer of left upper lobe of lung: (4) History of aspiration pneumonia: (5) COPD (chronic obstructive pulmonary disease): Plan IMPRESSION: 84-year-old male with history of squamous cell carcinoma for left upper lobe, COPD, and history of recurrent aspiration pneumonia who presents in the setting of influenza infection with associated weakness. Pulmonary consulted given familiarity with patient. RECOMMENDATIONS: 1. Influenza A Infection - Continue with supportive care as you are. Would recommend Tamiflu given age and respiratory history. Seems to be improved at this time. 2. Pneumonia - LEFT-sided infiltrative process noted to the lingula. Would treat as CAP. Currently on Rocephin. Consideration for addition of azithromycin. 3. LEFT upper lobe squamous cell carcinoma - Status post 5 fractions of SBRT treatment. 4. History of aspiration pneumonia - CT not is concerning for this at this time. Uncertain for need for anaerobic coverage. 5. COPD - He has not on inhalers at this time. Not bronchospastic on exam. No need for steroids. Thank you for allowing us to participate in the care of this pleasant patient. Follow with the patient in the outpatient setting. Supervising Physician Co-Signing Physician Notes Agree with assessment plan as noted. Pulmonary will sign off. Feel free to contact us with questions or concerns History of Present Illness Reason for Consultation: influenza, PNA, pt request - follows outpt Requesting Physician: Maria Del Carmen Begum PA-C Attending Physician: Andrew Harrington MD History of Present Illness Patient is an 84-year-old male with a significant past medical history of GERD, aspiration pneumonia, hypertension, dyslipidemia, COPD, and diagnosis of LEFT upper lobe adenocarcinoma of the lung status post SBRT diagnosed in the fall. Patient follows in the clinic by my colleague, Dr. Boyle. Patient underwent robotic bronchoscopy on 06/17/2024. Cytology positive for findings of non-small cell carcinoma consistent with squamous cell carcinoma. Patient underwent completion of SBRT radiation therapy to the LEFT upper lobe lesion where he received 5 fractions completed in July. The patient had been doing well, but family reports that he developed associated symptoms of low-grade fever, generalized weakness and fatigue, and drop in his oxygen saturations. He had been coordinating with the outpatient setting for management, however his weakness became too much and prompted emergency visit. Upon arrival, he tested positive for influenza A. He was started on Rocephin and Tamiflu. Chest CT was obtained which demonstrated infiltrative finding to the LEFT lingular area. Upon evaluation today in room 2631, the patient was awake and alert. His is present and provides historical information. She reports that he is back at his baseline at this time and without complaints. Allergies Allergy/AdvReac Type Severity Reaction Status Date / Time No Known Allergies Allergy Verified 10/18/24 09:50 Home Medications Medication Instructions Recorded Confirmed Type fluoxetine 20 mg capsule 20 mg PO QAM #90 caps 06/30/19 10/27/24 History fluoxetine 40 mg capsule (Prozac) 40 mg PO QAM #90 caps 06/30/19 10/27/24 History aspirin 81 mg tablet,delayed 81 mg PO QAM 05/31/21 10/27/24 History release (Adult Aspirin Regimen) donepezil 10 mg tablet (Aricept) 10 mg PO HS 01/27/22 10/27/24 History amlodipine 10 mg tablet 10 mg PO QAM #90 tabs 01/07/24 10/27/24 Rx acetaminophen 325 mg tablet 650 mg (2 x 325 mg) PO Q4H PRN 05/15/24 10/27/24 Rx pain #60 tabs atorvastatin 80 mg tablet (Lipitor) 80 mg PO QPM 06/17/24 10/27/24 History bupropion HCl 300 mg 24 hr tablet, 300 mg PO QAM 06/17/24 10/27/24 History extended release (Wellbutrin XL) valsartan 80 mg tablet (Diovan) 80 mg PO BID 06/17/24 10/27/24 History mecobalamin (vitamin B12) 500 mcg 500 mcg PO .QOD 06/24/24 10/27/24 History chewable tablet cholecalciferol (vitamin D3) 25 100 mcg PO DAILY 08/17/24 10/27/24 History mcg (1,000 unit) capsule ferrous sulfate 325 mg (65 mg 325 mg PO Q OTHER DAY #30 tabs 08/17/24 10/27/24 Rx iron) tablet,delayed release amoxicillin 500 mg tablet 2,000 mg (4 x 500 mg) PO ONCE #4 09/24/24 10/27/24 Rx tabs pantoprazole 40 mg tablet,delayed 40 mg PO DAILY #90 tabs 10/11/24 10/27/24 Rx release (Protonix) Patient History Medical History Adrenal nodule Carotid artery stenosis Hyperlipidemia HTN (hypertension) History of colon polyps Aspiration pneumonia Closed fracture of right hip COPD (chronic obstructive pulmonary disease) Hx of congestive heart failure Prediabetes Thalassemia trait, alpha History of aspiration pneumonia (05/06/24) Dementia PAD (peripheral artery disease) PFO (patent foramen ovale) Anemia Lung nodule GERD (gastroesophageal reflux disease) History of prostate cancer Anxiety and depression Brain aneurysm Internal hemorrhoids Diverticulosis Surgical History S/P total right hip arthroplasty (05/05/24) H/O cerebral aneurysm repair History of right-sided carotid endarterectomy History of colonoscopy History of prostate biopsy History of prostatectomy History of cataract surgery History of inguinal hernia repair Family History Mother Stroke Father Stroke Brother Epilepsy Brother Flu Heart disease Brother No problems noted. Brother Heart disease Sister No problems noted. Sister No problems noted. Sister No problems noted. Sister No problems noted. Daughter No problems noted. Daughter No problems noted. Other No family history of adverse response to anesthesia Denies family history of Ovarian cancer Breast cancer Colorectal cancer Social History Smoking Status: Former smoker Tobacco Type: Cigarettes Age Started Using Tobacco: 28; Age Quit Using Tobacco: 80; packs per day: 1; Cigarettes Per Day: 1/2 pack; Second Hand Exposure: No; Do You Dip or Chew Tobacco: No; Tobacco Cessation Education Requested by Patient: No Hx Alcohol Use: No Hx Substance Use: No Preferred Language: Setswana Communication Ability: Effective Communication Ability Comment: speaks and understands mexican very well. 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 GENERAL 84-year-old male appearing his stated age who is in no acute distress. Communicates well with provider and answers questions appropriately. SKIN Without rashes or lesions. NOSE Midline and without cyanosis. No epistaxis or purulent drainage noted. MOUTH/OROPHARYNX Without perioral cyanosis. NECK Neck with FROM. Supple to palpation. LUNGS Chest wall evaluation demonstrates normal chest wall A:P diameter. Auscultation reveals coarse breath sounds at the lung bases. No wheezes. CARDIAC RRR with S1/S2. No murmur, rubs, or gallops appreciated. ABDOMEN Abdominal inspection demonstrates a flat abdomen. BS normoactive all four quadrants. No tenderness, palpable masses, or ascites noted. EXTREMITIES Nail clubbing not present. No peripheral cyanosis. No pretibial edema present. +3/5 radial palpated throughout. PSYCH A&O. provides a much of the history. She reports that he is at his baseline. Results & Data Results & Data Vital Signs (Past 12 Hours) Vital Signs Temp Pulse Pulse Resp BP BP BP 10/28/24 11:58 36.9 C 65 18 131/60 10/28/24 08:55 10/28/24 07:50 37.0 C 66 18 131/61 10/28/24 07:11 66 10/28/24 03:23 10/28/24 03:21 77 10/28/24 02:35 36.9 C 81 20 146/65 H 10/28/24 02:09 66 24 137/90 Pulse Ox O2 Del Method O2 Flow Rate 10/28/24 11:58 93 Room Air 10/28/24 08:55 Room Air 10/28/24 07:50 93 Room Air 10/28/24 07:11 10/28/24 03:23 Room Air 1 10/28/24 03:21 10/28/24 02:35 92 Nasal Cannula 1 10/28/24 02:09 98 Nasal Cannula 2 PG Care Time/CCT Total # of Minutes Spent Total Time Spent with Patient: Total time spent is greater than 50% in coordination of care (as documented) at patient's floor/unit and/or counseling patient: Coding Level of Care Code 31110 INT INP/OBS CARE 2/55MIN Diagnoses Influenza J11.1 Pneumonia J18.9 Primary cancer of left upper lobe of lung C34.12 History of aspiration pneumonia Z87.01 COPD (chronic obstructive pulmonary disease) J44.9
[2024-10-28] MEDS: cefTRIAXone SODIUM 2,000 MG/50 ML BAG IV SCH (13:32)
[2024-10-28] MEDS: OSELTAMIVIR PHOSPHATE 75 MG CAP PO SCH (13:32)
--- NOTE | 2024-10-28 14:46 | CT Scan Report ---
CT OF THE ABDOMEN AND PELVIS WITHOUT CONTRAST CLINICAL HISTORY: elevated INR, mild transaminitis COMPARISON STUDY: CT of the abdomen and pelvis February 20, 2022. PET/CT June 03, 2024. TECHNIQUE: Axial images of the abdomen and pelvis were obtained without IV contrast. Images were revi ewed in the axial, sagittal, and coronal planes. Automated exposure control was utilized for the surjit dy. A dose lowering technique was utilized adhering to the principles of ALARA. FINDINGS: There are trace bilateral pleural effusions. Mild lingular and left lower lobe airspace opa cities are present. There is no hemoperitoneum or pneumoperitoneum. Multiple old left-sided rib fract ures are present. There is also an old, healed left iliac bone fracture. Low-attenuation renal lesion s are suboptimally assessed on unenhanced exam but favor cysts. Renal sinus calcifications are likely vascular. There is no hydronephrosis. Excreted contrast within the bladder from recent contrast-enha nced CT is noted. Evaluation of the abdomen and pelvis is suboptimal on this unenhanced exam. Low-att enuation right adrenal nodule is unchanged since prior PET/CT. This is benign. Spleen, left adrenal g land, liver and pancreas are unremarkable with exception of pancreatic ductal dilatation which is sim ilar to CTs dating back to February 20, 2022. Pancreatic duct measures 1.1 cm in caliber. There are panc reatic calcifications. Extensive aortoiliac calcified plaque is present. There is no retrope ritoneal hematoma. The prostate is surgically absent. Right hip arthroplasty is incidentally noted. IMPRESSION: 1. Mild lingular and left lower lobe airspace opacities which could reflect an infectious process or atelectasis. 2. Trace bilateral pleural effusions. 3. No biliary ductal dilatation. Stable pancreatic ductal dilatation, as described above. This is lik ernestina related to chronic pancreatitis. 4. No retroperitoneal hematoma. 5. No bowel obstruction. ACT 112: Negative or not required by law. Electronically signed by: Remberto Alfonso M.D. 10/28/2024 2:45 PM
[2024-10-28 15:57] VITALS: BP 146/65; PULSE 65
--- NOTE | 2024-10-28 16:16 | Discharge Summary ---
Discharge Summary Date of Service October 28, 2024 Principal Dx & Hospital Course #1 = Principal Diagnosis (1) Pneumonia: patient with weakness, fatigue, fever, cough, intermittent dizziness x 1 day. history of small cell lung cancer, COPD, and known history of aspiration pneumonia CXR showing Left lower lobe opacity concerning for pneumonia CTA showing focal left lower lobe pneumonia Biofire positive for influenza A - continue tamiflu Ceftriaxone while inpatient for PNA --> d/c on PO augmentin - continue IS, FV at discharge. aware. pulmonology consulted per family request - agree with current treatment plan, outpatient follow up (2) Hypoxia: 89 on RA -> 2 L NC 2/2 above resolved. 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, was to have CT scan next week to reassess CTA admission showing decrease in size of left upper lobe pulm nodule stable (5) Anemia: history of thalassemia trait, alpha - Hemoglobin improved from baseline - Continue home iron supplement (6) History of aspiration pneumonia: Aspiration precautions Patient is to have supervised meals at all times with nursing or present no aspiration events during inpatient stay Plan Chronic stable diagnoses: Dementia - continue Aricept HTN - continue valsartan and amlodipine depression - continue fluoxetine and Wellbutrin GERD - continue pantoprazole CAD/PAD - holding statin as above Dispo: discharge to home with 's care updated at bedside 10/28, daughter updated by phone 10/28 Notes For Next Care Provider Mild transaminitis and INR elevated to 1.4 - CTAP without acute process, seems to have chronic mild elevation of INR consider outpatient continued workup (RUQ US) - outpatient INR and CMP ordered, instructed to get next week with results to Dr. stout Medication Changes From Visit Tamiflu augmentin Admission HPI Per Admitting Provider Patient is an 84-year-old male with a past medical history of thalassemia trait, small cell lung cancer s/p radiation, dementia, PAD, CAD s/p right carotid endarterectomy, depression, GERD, hypertension, prostate cancer s/p prostatectomy, COPD, DVT, GI bleed. Patient was seen at bedside with present. She stated that yesterday when he got up and was walking around midday she noticed that he was weak, fatigued, and that his legs were like "noodles ". She also noticed a fever last evening and gave him Tylenol. He typically ambulates with a cane at baseline and moves around the house without difficulty. He has used a walker since the weakness yesterday. When she took him to his family doctor this morning they recommended that he come to the ER. He had an O2 sat of 89% on room air. He does not use oxygen at baseline. He has had a dry cough since yesterday. He also complains of intermittent dizziness. He stated that he has had decrease in p.o. intake for the past 24 hours. Patient's also states he has not had loose bowel movements to her knowledge but has been going a lot more frequently in the past 24 hours. Patient denies sputum production, dyspnea, dyspnea on exertion, chest pain, abdominal pain, nausea, vomiting, diarrhea, constipation, numbness, tingling. In regards to newly found transaminitis, patient denies taking NSAIDs. He has been on a long-term statin with no history of transaminitis. Denies any alcohol use. Patient quit smoking about 2 years ago. He does not use oxygen at baseline. Does have a history of prediabetes. He did not take his home medications this morning. Patient made decision with and daughter present via phone. Spoke to patient's daughter who is a physician on the phone. She stated that he has a history of aspiration pneumonia, he should be on aspiration precautions and someone should be in the room to help any at all times. He also often gets confused at night when in the hospital and is at risk for falls, would like him to be on fall precautions. She would really like for his grid operator Dr. Kwong to be involved with his care as he follows with him closely. he also has a history of DVT. Discharge Exam General: NAD, VS as above Resp: normal respiratory effort, no wheezing, coarse in bases CV: RRR, no murmur, Abd: normal bowel sounds, non tender, no hepatosplenomegaly Extremities: Moves all extremities, no edema Neuro: A&O x3, Skin: intact, no lesions noted Discharge Plan Discharge Items Patient Disposition: Home - Self-Care Reason For Visit: HYPOXIA, PNEUMONIA Discharge Diagnosis: pneumonia/ influenza A Activity: Resume your previous activity Bathing: No limitations Weightbearing: Full weightbearing Non-emergency contact: Primary Care Provider Call non-emergency contact if: you have any medication questions, your symptoms worsen, you have a fever and your temperature is above 101 Follow-up/Referrals: Raffi Stout MD [Primary Care Provider] - (follow up within 1 week ) Khari Boyle MD [Physician] - (follow up 2-4 weeks ) Diet: Heart Healthy Diet Texture: Dental soft (bite-sized) Ambulatory Orders: Comprehensive Metabolic Panel (Routine) Timeframe: 1 Week Location: Determined by Patient Ordered By: Beth Quiñones Prothrombin Time INR (Routine) Timeframe: 1 Week Location: Determined by Patient Ordered By: Beth Quiñones Addtl Attending Provider Instructions: Mr. Adair, You were hospitalized after having low oxygen levels at home - this was found to be from pneumonia and influenza A. You have been treated with IV antibiotics for the pneumonia and you will be discharged with oral antibiotics - Augmentin. First dose tomorrow morning for 5 additional days. Take with food. Continue to use the incentive spirometer and flutter valve that you have at home. For the influenza you have been treated with tamiflu - a prescription has been sent in for this. This is a twice a day medication, you will take for 4 additional days, first dose is tonight. Other treatment for this is supportive care - rest, staying hydrated, well balanced diet. You had a slight elevation if your LFTs (liver function tests), this is likely from the viral infection. However, hold your atorvastatin until you have repeat labs and follow up with your PCP. The labs are ordered and can be done at any [facility] location, results will be send to Dr. Stout. The abdominal did not show any changes to your liver. I added additional blood work to recheck the INR. I will send a report to Dr. Stout, he may want to do an Ultrasound in the near future. There may be some underlying chronic liver process but we have rule out anything acute. Touch base with your oncology team to see if the CT scan done in the ED was sufficient follow up or if more scans need to be done for his 3 month scan. Activity: You can do normal everyday activities as your body allows. Take rest breaks if you feel tired. Do not overexert. Stop activity if you have pain, shortness of breath or feel dizzy. Follow-up appointments: Make an appointment with your primary care physician within one week of discharge. A copy of this summary will be sent to them. Every time you see your primary care physician, or any other doctor, bring your medication list, and a list of questions. CONTACT YOUR PRIMARY CARE PROVIDER if you experience any of the following: Shortness of breath or difficulty breathing Fevers or chills Feeling tired with normal activity or experiencing dizziness or fainting Difficulty following your treatment plan, or difficulty taking medications CALL 911 OR GO TO THE EMERGENCY DEPARTMENT if you experience any of the following: Severe abdominal pain or nausea/vomiting Severe chest pain, or chest pain that radiates (moves) to your jaw or arm Sudden, severe shortness of breath or difficulty breathing Thank you for allowing us to participate in your care. Pending Studies at Discharge: No Stand-Alone Forms: My [facility], Smoking Cessation Medications and DC Order Prescriptions: New oseltamivir [Tamiflu] 75 mg Capsule 75 mg PO BID 4 Days Qty: 8 0RF amoxicillin-pot clavulanate 875-125 mg tablet 1 tab PO BID Qty: 10 0RF Continued amlodipine 10 mg tablet 10 mg PO QAM Qty: 90 3RF amoxicillin 500 mg tablet 2,000 mg PO ONCE Qty: 4 3RF Rx Instructions: 4 tabs 1 hour prior to procedure pantoprazole [Protonix] 40 mg tablet,delayed release (DR/EC) 40 mg PO DAILY Qty: 90 3RF aspirin [Adult Aspirin Regimen] 81 mg tablet,delayed release (DR/EC) 81 mg PO QAM fluoxetine 20 mg capsule 20 mg PO QAM Qty: 90 fluoxetine [Prozac] 40 mg capsule 40 mg PO QAM Qty: 90 cholecalciferol (vitamin D3) 25 mcg (1,000 unit) capsule 100 mcg PO DAILY ferrous sulfate 325 mg (65 mg iron) tablet,delayed release (DR/EC) 325 mg PO Q OTHER DAY Qty: 30 5RF Rx Instructions: Mlyn-zrp-tvhxarb mecobalamin (vitamin B12) 500 mcg tablet,chewable 500 mcg PO .QOD Rx Instructions: otc, as directed. unknown dose. donepezil [Aricept] 10 mg tablet 10 mg PO HS acetaminophen 325 mg Tablet 650 mg PO Q4H PRN (Reason: pain) Qty: 60 0RF Rx Instructions: Ncdq-zwh-kkyesvn valsartan [Diovan] 80 mg tablet 80 mg PO BID bupropion HCl [Wellbutrin XL] 300 mg tablet extended release 24 hr 300 mg PO QAM Held atorvastatin [Lipitor] 80 mg tablet 80 mg PO QPM Hold Instructions: Resume on 11/09/24. until PCP follow up Discharge Orders: Discharge Order (Routine); Ordered 10/28/24 Ordered By: Beth Quiñones Admission Data Admit Date/Time: 10/27/24 17:41 Attending Provider: Andrew Harrington Admit Provider: Nino Palm Primary Care Provider: Raffi Stout Other Providers: Nino Palm; Khari Boyle Other Interventions: Discharge Summary Assessment (RN) Last Done: 10/28/24 15:56 Hospital Stay Data Consultations 10/27/24 16:37 ED Decision to Admit Stat 10/27/24 20:05 Consult Pulmonology Routine Diagnostic Imagining Performed 10/27/24 13:12 CT head/brain wo con Stat 10/27/24 14:19 CT angio chest PE protocol Stat 10/28/24 13:28 CT Abd and Pelvis [CT abd pelvis wo con] Urgent Pending Results Patient Have Any Pending Studies at Discharge: No Discharge Instructions Given to Patient (Per Discharging Provider) Mr. Adair, You were hospitalized after having low oxygen levels at home - this was found to be from pneumonia and influenza A. You have been treated with IV antibiotics for the pneumonia and you will be discharged with oral antibiotics - Augmentin. First dose tomorrow morning for 5 additional days. Take with food. Continue to use the incentive spirometer and flutter valve that you have at home. For the influenza you have been treated with tamiflu - a prescription has been sent in for this. This is a twice a day medication, you will take for 4 additional days, first dose is tonight. Other treatment for this is supportive care - rest, staying hydrated, well balanced diet. You had a slight elevation if your LFTs (liver function tests), this is likely from the viral infection. However, hold your atorvastatin until you have repeat labs and follow up with your PCP. The labs are ordered and can be done at any [facility] location, results will be send to Dr. Stout. The abdominal did not show any changes to your liver. I added additional blood work to recheck the INR. I will send a report to Dr. Stout, he may want to do an Ultrasound in the near future. There may be some underlying chronic liver process but we have rule out anything acute. Touch base with your oncology team to see if the CT scan done in the ED was sufficient follow up or if more scans need to be done for his 3 month scan. Activity: You can do normal everyday activities as your body allows. Take rest breaks if you feel tired. Do not overexert. Stop activity if you have pain, shortness of breath or feel dizzy. Follow-up appointments: Make an appointment with your primary care physician within one week of discharge. A copy of this summary will be sent to them. Every time you see your primary care physician, or any other doctor, bring your medication list, and a list of questions. CONTACT YOUR PRIMARY CARE PROVIDER if you experience any of the following: Shortness of breath or difficulty breathing Fevers or chills Feeling tired with normal activity or experiencing dizziness or fainting Difficulty following your treatment plan, or difficulty taking medications CALL 911 OR GO TO THE EMERGENCY DEPARTMENT if you experience any of the following: Severe abdominal pain or nausea/vomiting Severe chest pain, or chest pain that radiates (moves) to your jaw or arm Sudden, severe shortness of breath or difficulty breathing Thank you for allowing us to participate in your care. Total Time Total Time Spent Total Time Spent (In Minutes): Time spent day of discharge 45 minutes including direct patient care, medication reconciliation, documentation, review of labs and images, and coordination of care. Coding Level of Care Code 92107 INP/OBS DISCH >30 MIN Diagnoses Pneumonia J18.9 Hypoxia R09.02 Transaminitis R74.01 Primary cancer of left upper lobe of lung C34.12 Anemia D64.9 History of aspiration pneumonia Z87.01
[2024-10-28] MEDS ORDERED: cefTRIAXone SODIUM 2,000 MG/50 ML BAG IV SCH (18:00)
--- NOTE | 2024-10-28 22:39 | Electrocardiogram Report ---
Test Reason : Blood Pressure : */* mmHG Vent. Rate : 88 BPM Atrial Rate : 88 BPM P-R Int : 162 ms QRS Dur : 92 ms QT Int : 390 ms P-R-T Axes : 69 -60 65 degrees QTcB Int : 471 ms Normal sinus rhythm Left axis deviation Cannot rule out Anterior infarct , age undetermined Nonspecific ST abnormality Abnormal ECG When compared with ECG of 03-May-2024 13:42, QRS axis Shifted left Confirmed by Kaden Ibarra ([id number]) on 10/28/2024 10:39:22 PM Referred By: REFERRED SELF Confirmed By: Kaden Ibarra
== END 2024-10-28 17:56 | disposition home or self-care (01) | DRG 194 ==
LOC: ED 12:38 → SUATTDRO 17:41 → EDINP 17:41 → 2W 10-28 02:09